=== PATIENT | female | born 1990 | race Caucasian/White ===

== ENCOUNTER → 2020-10-31 06:33 | Outpatient (CLI) | payer OTHER, SELFPAY ==
[2020-10-31 20:06] LABS: SARS-CoV-2 RNA PCR Negative
== END ==
PROVIDERS: PCP Obstetrics & Gynecology; Visit Provider Obstetrics & Gynecology
DX: Z20.822 Contact with and (suspected) exposure to COVID-19 (principal)
CPT/HCPCS: C9803; U0003; U0005

== ENCOUNTER 2021-04-26 11:24 | Outpatient (CLI) | payer OTHER, SELFPAY ==
[2021-04-26 12:00] VITALS: BP 119/82; PULSE 115
[2021-04-26 12:15] VITALS: BP 119/77; PULSE 88
[2021-04-26 12:16] LABS: Basophils Percent Auto 0.3 % (0.2-1.2); Eosinophils Absolute Auto 0.1 K/mm3 (0-0.3); Eosinophils Percent Auto 0.5 % (0-4.4); Hemoglobin 13.1 g/dL (12.0-15.0); Immature Granulocyte Absolute 0.07 K/mm3 (0.00-0.031); Immature Granulocyte Percent A 0.6 % (0-0.5); Lymphocytes Absolute Auto 1.67 K/mm3 (0.9-3.2); Lymphocytes Percent Auto 15.1 % (18.3-44.2); Mean Corpuscular HGB Conc 32.8 g/dl (32-36); Mean Corpuscular Hemoglobin 29.1 pg (26-34); Mean Corpuscular Volume 88.9 fl (80-100); Mean Platelet Volume 10.4 fl (7.4-10.4); Monocytes Absolute Auto 0.6 K/mm3 (0.1-0.6); Monocytes Percent Auto 5.2 % (2.6-8.5); Neutrophils Absolute Auto 8.6 K/mm3 (1.3-6.7); Neutrophils Percent Auto 78.3 % (45.5-73.1); Platelet Count Result 276 k/mm3 (150-375); Red Cell Distribution Width 14.4 % (11.5-14.5)
[2021-04-26 12:24] LABS: Creatinine Urine 49.2 mg/dL; Total Protein Urine Random 9 mg/dL; Ur Ttl Prot Creatinine Ratio 0.18 mg/mg (0-0.20)
[2021-04-26 12:27] LABS: Add Urine Microscopic? YES; Appearance Urine Cloudy (Clear); Bacteria Urine Trace /hpf; Bilirubin Urine Negative (Negative); Blood Urine Negative (Negative); Color Urine Yellow (Yellow); Glucose Urine UA Negative (Negative); Ketones Urine 2+ mg/dL (Negative); Leukocyte Esterase Ur Negative LEU/UL (NEGATIVE); Mucus Urine Rare /lpf; Nitrate Urine Negative (Negative); Protein Urine Negative (Negative); RBC Urine 0-2 /hpf (0-2); Specific Grav Ur 1.014 (1.001-1.035); Squamous Epithelial Cell Urine Many /hpf (Few); Urobilinogen Urine Negative mg/dL (<2.0); WBC Urine 0-3 /hpf (0-3)
[2021-04-26 12:30] VITALS: BP 109/78; PULSE 102
[2021-04-26 12:30] LABS: Alanine Aminotransferase 25 U/L (4-35); Albumin Level 3.8 g/dL (3.5-5.1); Alkaline Phosphatase 91 U/L (38-126); Anion Gap 7 mmol/L (8-16); Aspartate Amino Transferase 21 U/L (14-36); Bilirubin,Total 0.2 mg/dL (0.2-1.3); Blood Urea Nitrogen 11 mg/dL (7-17); Calcium 9.5 mg/dL (8.4-10.2); Carbon Dioxide 21 mmol/L (22-30); Chloride 105 mmol/L (98-107); Estimated Glomerular Filt Rate > 60; Glucose 97 mg/dL (65-110); Potassium 3.8 mmol/L (3.4-5.0); Sodium 133 mmol/L (137-145); Uric Acid 4.6 mg/dL (2.5-7.5)
[2021-04-26 12:45] VITALS: BP 118/68; PULSE 106
== END 2021-04-26 13:00 | disposition home or self-care (01) ==
LOC: ANHOBOP 11:32 → ANHOBPP 11:34
PROVIDERS: Advanced Practice Midwife; PCP Obstetrics & Gynecology; Visit Provider Obstetrics & Gynecology
DX: O13.9 Gestational [pregnancy-induced] hypertension without significant proteinuria, unspecified trimester (principal); Z3A.00 Weeks of gestation of pregnancy not specified
CPT/HCPCS: 36415; 59025; 80053; 81001; 82570; 84156; 84550; 85025; 87086; 99199

== ENCOUNTER 2021-05-11 15:24 | Outpatient (RCR) | payer OTHER, SELFPAY ==
[2021-05-11 15:54] VITALS: BP 115/82; PULSE 116
== END 2021-06-28 09:40 | disposition home or self-care (01) ==
LOC: ANHOBOP 15:24
PROVIDERS: Visit Provider Obstetrics & Gynecology
DX: O24.419 Gestational diabetes mellitus in pregnancy, unspecified control (principal); Z3A.37 37 weeks gestation of pregnancy
CPT/HCPCS: 59025

== ENCOUNTER 2021-05-19 08:06 | Inpatient (IN) | payer OTHER, SELFPAY ==
[2021-05-19] VITALS (69 sets, daily range): BP systolic 80–143; BP diastolic 54–101; PULSE 55–202; RESP 15–18; TEMP 36.3–36.5; O2SAT 77–100; BMI 36.9
[2021-05-19] MEDS: LACTATED RINGERS 1,000 ML 125 ML IV CONT ×2 (08:57→09:28)
[2021-05-19 08:59] LABS: Basophils Percent Auto 0.2 % (0.2-1.2); Eosinophils Absolute Auto 0.1 K/mm3 (0-0.3); Hematocrit 44.4 % (37.0-47.0); Hemoglobin 14.9 g/dL (12.0-15.0); Immature Granulocyte Absolute 0.06 K/mm3 (0.00-0.031); Immature Granulocyte Percent A 0.5 % (0-0.5); Lymphocytes Absolute Auto 1.95 K/mm3 (0.9-3.2); Lymphocytes Percent Auto 16.2 % (18.3-44.2); Mean Corpuscular HGB Conc 33.6 g/dl (32-36); Mean Corpuscular Hemoglobin 29.4 pg (26-34); Mean Corpuscular Volume 87.7 fl (80-100); Mean Platelet Volume 10.5 fl (7.4-10.4); Monocytes Absolute Auto 0.8 K/mm3 (0.1-0.6); Monocytes Percent Auto 6.4 % (2.6-8.5); Neutrophils Absolute Auto 9.1 K/mm3 (1.3-6.7); Neutrophils Percent Auto 75.7 % (45.5-73.1); Platelet Count Result 262 k/mm3 (150-375); Red Blood Count 5.06 M/mm3 (4.2-5.4); Red Cell Distribution Width 14.8 % (11.5-14.5)
[2021-05-19 09:01] LABS: Glucose Point of Care 89 mg/dl (65-105)
[2021-05-19 09:14] LABS: Amphetamine Screen Urine Negative (Negative); Barbiturate Screen Urine Negative (Negative); Benzodiazepines Screen Urine Negative (Negative); Cannabinoid Screen Urine Positive (Negative); Cocaine Screen Urine Negative (Negative); Methadone Screen Urine Negative (Negative); Opiate Screen Urine Negative (Negative); Phencyclidine Screen Urine Negative (Negative)
--- NOTE | 2021-05-19 09:18 | LDADM ---
This patient, Tejal Pérez, was admitted to Labor/Delivery/Recovery 120 on 05/19/21 at 08:06. Plans for scheduled section, pain management and were discussed with patient. Patient/family oriented to hospital policies and general routines including ID bracelet, bed and alarms, visiting hours, pain management, procedures, bathroom and other care routines, personal items, smoking policy, room service/diet and guest tray routines, security routines, and visiting hours. Patient/Family are encouraged to report perceived risks to care and to ask questions if they do not understand what they are told or what they should do. See OBIX for further documentation.
--- NOTE | 2021-05-19 09:28 | WPDANESEPPF ---
Anes - Initial Pre Proc Eval Procedure: Operation Date: 05/21/21 07:30 Proposed Procedures p Section with Left Laparoscopic Salpingo Oophorectomy - Radha Parikh MD Date/Time: 05/19/21 09:28 Surgeon: Radha Parikh MD Pre Op Diagnosis: Contractions Patient Data Age: 31 Gender: F Height: 1.5 m Weight: 83 kg Allergies Allergy/AdvReac Type Severity Reaction Status Date / Time hydromorphone [From Dilaudid] Allergy Rash Verified 04/28/21 13:53 Home Medications Medication Instructions Recorded Confirmed Type PNV cmb#95-ferrous fumarate-FA 1 tablet PO DAILY 04/28/21 05/11/21 History [] Laboratory Tests 05/19/21 05/19/21 05/19/21 08:47 08:47 08:47 WBC 12.0 K/mm3 H K/mm3 (4.5-10.0) RBC 5.06 M/mm3 M/mm3 (4.2-5.4) Hgb 14.9 g/dL g/dL (12.0-15.0) Hct 44.4 % % (37.0-47.0) MCV 87.7 fl fl (80-100) MCH 29.4 pg pg (26-34) MCHC 33.6 g/dl g/dl (32-36) RDW 14.8 % H % (11.5-14.5) Plt Count 262 k/mm3 k/mm3 (150-375) MPV 10.5 fl H fl (7.4-10.4) Immature Gran % (Auto) 0.5 % % (0-0.5) Neut % (Auto) 75.7 % H % (45.5-73.1) Lymph % (Auto) 16.2 % L % (18.3-44.2) [place] % (Auto) 6.4 % % (2.6-8.5) Eos % (Auto) 1.0 % % (0-4.4) Baso % (Auto) 0.2 % % (0.2-1.2) Lymph # (Auto) 1.95 K/mm3 K/mm3 (0.9-3.2) [place] # (Auto) 0.8 K/mm3 H K/mm3 (0.1-0.6) Eos # (Auto) 0.1 K/mm3 K/mm3 (0-0.3) Baso # (Auto) 0.0 K/mm3 K/mm3 (0.0-0.1) Abs Immat Gran (auto) 0.06 K/mm3 H K/mm3 (0.00-0.031) Absolute Neuts (auto) 9.1 K/mm3 H K/mm3 (1.3-6.7) Absolute Nucleated RBC 0.0 K/mm3 K/mm3 (0.0-0.012) Nucleated RBC % 0.0 % % (0.0-0.2) POC Capillary Glucose Urine Opiates Screen Negative (Negative) Urine Methadone Screen Negative (Negative) Ur Barbiturates Screen Negative (Negative) Ur Phencyclidine Scrn Negative (Negative) Ur Amphetamine Screen Negative (Negative) U Benzodiazepines Scrn Negative (Negative) Urine Cocaine Screen Negative (Negative) U Cannabinoids Screen Positive A (Negative) RPR Pending 05/19/21 08:59 WBC RBC Hgb Hct MCV MCH MCHC RDW Plt Count MPV Immature Gran % (Auto) Neut % (Auto) Lymph % (Auto) [place] % (Auto) Eos % (Auto) Baso % (Auto) Lymph # (Auto) [place] # (Auto) Eos # (Auto) Baso # (Auto) Abs Immat Gran (auto) Absolute Neuts (auto) Absolute Nucleated RBC Nucleated RBC % POC Capillary Glucose 89 mg/dl mg/dl (65-105) Urine Opiates Screen Urine Methadone Screen Ur Barbiturates Screen Ur Phencyclidine Scrn Ur Amphetamine Screen U Benzodiazepines Scrn Urine Cocaine Screen U Cannabinoids Screen RPR Patient hx anesthesia problems: none Family hx anesthesia problems: none Results Review: All pre-operative results and documents have been reviewed as part of the pre-operative evaluation. [facility] Family History Family History (Updated 04/28/21 @ 13:30 by Kalie Zheng RN) Mother Breast cancer Social History Social History Smoking status: Former smoker Substance use: never Spiritual care concerns: No Anes - Eval Final PreProcedure Day of Procedure 05/19/21 09:28 Patient weight: obese Heart: regular rate and rhythm Lungs: clear to auscultation and normal air movement Airway: Mallampati scale class II Neurological: alert and oriented Last oral intake: >/= 8 hours ASA classification: II Emergent: no Anesthetic plan: proceed Anesthesia type and monitoring: region
--- NOTE | 2021-05-19 09:45 | PM.IMHP ---
H&P: HPI History of Present Illness Date/Time: 05/19/21 09:45 Chief Complaint: labor Narrative: Tejal is a 31yo G1 at 39 weeks who presented in labor this morning. Was scheduled for primary CS on Friday with LSO for left ovarian dermoid. Baby had been breech, but when flipped to vertex she decided to proceed with primary CS because of her short stature, family history of needing CS, and of having large left ovarian dermoid that also needs surgical removal. otherwise complicated by GDMA1. Review of Systems Review of Systems: All systems reviewed & are unremarkable except as noted in HPI and below PMFSH Family History Family History (Updated 04/28/21 @ 13:30 by Kalie Zheng RN) Mother Breast cancer Social History Social History Smoking status: Former smoker Substance use: never Spiritual care concerns: No Meds Home Medications and Allergies Home Medications Medication Instructions Recorded Confirmed Type PNV cmb#95-ferrous fumarate-FA 1 tablet PO DAILY 04/28/21 05/11/21 History [] Allergies Allergy/AdvReac Type Severity Reaction Status Date / Time hydromorphone [From Dilaudid] Allergy Rash Verified 04/28/21 13:53 Exam Const: General: no acute distress Resp: Effort & Inspection: normal respiratory effort Auscultation: clear to auscultation bilaterally Cardio: Rate: regular rate Rhythm: regular rhythm GI: GI Palp: Yes Soft to palpation Extrem: General: normal to inspection H&P: Results Labs Labs: Short CBC 05/19/21 Range/Units 08:47 WBC 12.0 H (4.5-10.0) K/mm3 Hgb 14.9 (12.0-15.0) g/dL Hct 44.4 (37.0-47.0) % Plt Count 262 (150-375) k/mm3 Assessment and Plan Assessment and plan (1) Ovarian dermoid cyst complicating , antepartum: Code(s): O34.80 - Maternal care for other abnormalities of pelvic organs, unspecified trimester; D27.9 - Benign neoplasm of unspecified ovary Status: Acute (2) Active labor at term: Status: Acute Additional Plan Plan primary CS with LSO for large dermoid Discussed RBA, pt consented, all questions answered. GDMA1- well controlled. will proceed.
--- NOTE | 2021-05-19 09:49 | WPDHPUPDATE1 ---
History and Physical Update Update Date/Time: 05/19/21 09:49 History and Physical has been reviewed, including an updated exam of the patient. There are NO changes in the patient's condition. Risks, benefits, and alternatives have been discussed and questions answered. Patient agrees to proceed with procedure.
--- NOTE | 2021-05-19 11:07 | P.PCNOB_ITS ---
OB - Delivery Note Procedure Delivery date: 05/19/21 Procedure: Procedures Operation Date: 05/19/21 09:45 <No data on this case meets the specified criteria> Primary Low Transverse Section with left salpingooophorectomy events: Gestational Diabetes Route of delivery: Specimen: Yes (placenta and left tube and ovary with dermoid) Quantitative Blood Loss (ml): 440 Anesthesia type: Spinal Disposition: floor Complications: none Narrative: The patient was taken to the OR and had her epidural anesthesia dosed adequately. She was placed in dorsal supine position with left lateral tilt. S CDs and breen had been placed. She was prepped and draped in the normal sterile fashion. A Pfannensteil skin incision was made and carried through to the underlying layer of fascia. The fascia was incised in the midline and then extended laterally using Briseno scissors. The muscles were in the midline and the peritoneum was entered bluntly. The peritoneal incision was extended inferiorly and superiorly with care to avoid the bladder. The bladder blade was then inserted, the vesicouterine peritoneum was grasped, incised with Metzenbaum scissors, and a bladder flap created. The bladder blade was reinserted. A low transverse uterine incision was made with a scalpel and extended bluntly. AROM was performed and fluid was noted to have thick meconium. The head was delivered, followed by the remainder of the baby. The baby's oropharynx was suctioned. The cord was clamped and cut and the infant was handed off. Cord blood was obtained and the placenta was then removed manually. The uterus was exteriorized. A moist lap sponge was used to curette the endometrium. The uterine incision was then closed with one layer of 0-Vicryl in a running, locking fashion. A second imbricating layer was done and good hemostasis was noted. Attention was turned to the left dermoid, about 8cm in size. No clearly normal ovarian tissue was able to be identified. Using the Ligasure device, the tube and ovary were removed by sequentially cauterizing and cutting the infundibulopelvic ligament, broad ligament, and the cornua. Great hemostasis was noted. The posterior cul de sac was irrigated with normal saline and cleared of all clot and debris. The uterus was returned to the abdomen. Both lateral gutters were then irrigated. The rectus muscles were inspected and foun d to be hemostatic. The fascia was reapproximated using 0-Vicryl in running fashion. The subcutaneous tissue was irrigated with normal saline and made hemostatic with Bovie electrocautery. The subcutaneous tissue was reapproximated with a layer of running 2-0 plain gut. The skin was then closed with 4-0 vicryl. Steri strips and a bandage were applied. The uterus was evacuated. The patient tolerated the procedure very well. All counts were correct. She was taken to the recovery room in good condition. [place] Baby Date of : 05/19/21 Time of : 10:27 Weeks of gestation at delivery: 39 Infant gender: Female Weight (pounds): 6 Weight (ounces): 5 presentation: vertex Placenta delivery description: Manual Removal cord vessel description: 3 Vessels and Nuchal Cord score one minute: 8 score five minutes: 8
[2021-05-19] MEDS: OXYTOCIN 30 UNITS/NS 500 ML 30 UNITS/500 ML BAG 125 UNITS IV CONT (13:54)
--- NOTE | 2021-05-19 14:18 | PC.NURSE ---
0830- called,informed pt came in stating her contractions are more uncomfortable and she thinks she is in labor. SVE is 5-6cm with bulging membrane bag. Contractions are about every 3-5 minutes. Orders received to prep for c/s for around 1000.
[2021-05-19] MEDS: KETOROLAC 30 MG/ML VIAL (*BKC) IV PUSH ×2 (14:28→20:00)
[2021-05-19] MEDS: DEXTROSE 5%/0.45% SOD CHL 1,000 ML 125 ML IV CONT (18:30)
[2021-05-19] MEDS: DOCUSATE SODIUM 100 MG CAPSULE PO (18:30)
[2021-05-19] MEDS: ONDANSETRON INJ 4 MG/2 ML VIAL IV PUSH (19:51)
[2021-05-20] MEDS: HYDROcodone/acetaminophen (*CRX) 10-325 MG TABLET 1 TAB PO ×6 (00:19→21:03)
[2021-05-20 01:09] VITALS: BP 116/73; PULSE 97; RESP 16; TEMP 36.8; O2SAT 100
[2021-05-20] MEDS: KETOROLAC 30 MG/ML VIAL (*BKC) IV PUSH (02:50)
[2021-05-20 04:15] VITALS: BP 105/73; PULSE 74; RESP 16; TEMP 36.3; O2SAT 100
[2021-05-20] MEDS: HYDROcodone/acetaminophen (*CRX) 5-325 MG TABLET 1 TAB PO (04:28)
[2021-05-20 05:11] LABS: Basophils Percent Auto 0.2 % (0.2-1.2); Eosinophils Absolute Auto 0.1 K/mm3 (0-0.3); Eosinophils Percent Auto 0.3 % (0-4.4); Hematocrit 35.7 % (37.0-47.0); Hemoglobin 11.8 g/dL (12.0-15.0); Immature Granulocyte Percent A 0.6 % (0-0.5); Lymphocytes Absolute Auto 1.54 K/mm3 (0.9-3.2); Lymphocytes Percent Auto 8.5 % (18.3-44.2); Mean Corpuscular HGB Conc 33.1 g/dl (32-36); Mean Corpuscular Hemoglobin 29.4 pg (26-34); Mean Corpuscular Volume 88.8 fl (80-100); Mean Platelet Volume 10.8 fl (7.4-10.4); Monocytes Absolute Auto 1.1 K/mm3 (0.1-0.6); Neutrophils Absolute Auto 15.3 K/mm3 (1.3-6.7); Neutrophils Percent Auto 84.4 % (45.5-73.1); Platelet Count Result 219 k/mm3 (150-375); Red Blood Count 4.02 M/mm3 (4.2-5.4); Red Cell Distribution Width 14.6 % (11.5-14.5); White Blood Count 18.1 K/mm3 (4.5-10.0)
--- NOTE | 2021-05-20 07:28 | WPDANLDPN2 ---
Anes-Prog Note L&D Date/Time: 05/20/21 07:28 Comfortable throughout: section Neuraxial method: spinal Epidural/Spinal procedure site: clean & non-tender Neuro status: Neuro function grossly intact. Cardiovascular status: normal Respiratory status: normal Airway patency: baseline Mental status: baseline Post-Op hydration status: normal Vital Signs: Last Vital Signs Temp 36.3 C L 05/20/21 04:15 Pulse 74 05/20/21 04:15 Resp 16 05/20/21 04:15 BP 105/73 05/20/21 04:15 Pulse Ox 100 05/20/21 04:15 Pain score (VAS): 4 I/O: Intake & Output 05/19/21 05/19/21 05/20/21 15:59 23:59 07:59 Intake Total 2100 498 500 Output Total 108 995 7190 Balance 1425 298 -1225 Post-procedural complaints: none Patient feedback: Patient satisfied with anesthetic care.
--- NOTE | 2021-05-20 07:28 | WPDANLDNPN2 ---
Anes-Prog Note L&D-Neuraxial Date/Time: 05/20/21 07:28 Neuraxial medications: intrathecal PF morphine Opiod-related complaints: none Patient feedback: Patient satisfied with post-operative pain management.
--- NOTE | 2021-05-20 07:30 | PC.NURSE ---
PT introductions made and plan of care discussed per post op c section, pain management, breast feeding, daily care activities. Pt and fob both recipients of such instructions and pt received instructions this shift per one to one discussion, mom baby care guide and demonstrations. PT verbalized understanding fo such instructions and no barriers to learning identified at this time. PT verbalized understanding of such care.
[2021-05-20] MEDS: DOCUSATE SODIUM 100 MG CAPSULE PO ×2 (08:48→18:28)
[2021-05-20] MEDS: SIMETHICONE 80 MG TAB.CHEW PO ×5 (08:48→20:48)
[2021-05-20] MEDS: MULTIVIT/MIN/PREN/FOL AC/IRON TABLET 1 TAB PO (08:48)
[2021-05-20] MEDS: IBUPROFEN 600 MG TABLET PO ×3 (08:48→20:48)
[2021-05-20 08:49] VITALS: BP 123/82; PULSE 97; RESP 18; TEMP 36.9; O2SAT 99
[2021-05-20] MEDS: LANOLIN (LANSINOH) 7.5 GM CREAM 1 APPLIC TOPICAL (08:51)
--- NOTE | 2021-05-20 10:20 | P.PNOB_ITS ---
OB - PN: Subj Subjective Date/time seen: 05/20/21 10:20 Patient comments: incisional pain [place] baby status: nursing well [place] feeding status: pumping and storing Narrative: Doing ok, just took pain meds, a little behind pain from overnight. improving. OB - PN: Obj Data Labs CBC & Chem 7: 05/20/21 04:27 Labs: Laboratory Results - last 24 hr 05/20/21 04:27 WBC 18.1 H RBC 4.02 L Hgb 11.8 L D Hct 35.7 L MCV 88.8 MCH 29.4 MCHC 33.1 RDW 14.6 H Plt Count 219 MPV 10.8 H Immature Gran % (Auto) 0.6 H Neut % (Auto) 84.4 H Lymph % (Auto) 8.5 L [place] % (Auto) 6.0 Eos % (Auto) 0.3 Baso % (Auto) 0.2 Lymph # (Auto) 1.54 [place] # (Auto) 1.1 H Eos # (Auto) 0.1 Baso # (Auto) 0.0 Abs Immat Gran (auto) 0.10 H Absolute Neuts (auto) 15.3 H Absolute Nucleated RBC 0.0 Nucleated RBC % 0.0 OB - PN A/P Assessment and Plan (1) delivery delivered: Code(s): O82 - Encounter for delivery without indication Status: Acute Plan day: 1 Plan: routine care Comments: breen out ambulate and void today Time Spent With Patient Time: Total time spent is greater than 50% in coordination of care (as documented) at patient's floor/unit and/or counseling patient: Exam Narrative: NAD abdomen soft, appropriately tender, incision bandaged Extremities nontender with 1+ edema
[2021-05-20 18:30] VITALS: BP 131/91; PULSE 86; RESP 18; TEMP 36.8; O2SAT 98
[2021-05-21] MEDS: SIMETHICONE 80 MG TAB.CHEW PO ×6 (00:13→22:01)
[2021-05-21] MEDS: HYDROcodone/acetaminophen (*CRX) 5-325 MG TABLET 1 TAB PO ×3 (00:13→22:01)
[2021-05-21] MEDS: HYDROcodone/acetaminophen (*CRX) 10-325 MG TABLET 1 TAB PO ×5 (03:33→15:52)
[2021-05-21] MEDS: IBUPROFEN 600 MG TABLET PO ×3 (06:35→18:39)
[2021-05-21 07:55] VITALS: BP 145/75; PULSE 80; RESP 18; TEMP 36.6; O2SAT 100
--- NOTE | 2021-05-21 08:08 | PM.OBPNVD ---
OB - PN: Subj Subjective Date/time seen: 05/21/21 08:08 Patient comments: incisional pain and flatus present [place] baby status: nursing well feeding status: exclusively breast feeding Narrative: Eating, ambulating, voiding. Wants to really focus on before going home. OB - PN: Obj Data Labs CBC & Chem 7: 05/20/21 04:27 OB - PN A/P Plan day: 2 Plan: routine care Comments: home POD 3 or 4. Time Spent With Patient Time: Total time spent is greater than 50% in coordination of care (as documented) at patient's floor/unit and/or counseling patient: Exam Narrative: NAD abdomen soft, appropriately tender, incision CDI Extremities nontender with 1+ edema
[2021-05-21] MEDS: DOCUSATE SODIUM 100 MG CAPSULE PO ×2 (08:23→15:52)
[2021-05-21] MEDS: MULTIVIT/MIN/PREN/FOL AC/IRON TABLET 1 TAB PO (08:23)
--- NOTE | 2021-05-21 10:10 | PC.NURSE ---
Mother called out for assist with feeding, reporting has been sleepy and difficult to keep awake and nursing effectively, mother gave a supplement during the night. Infant is at 9% weight loss. . is able to freely thrust tongue past gum ridge and flange both lips. Skin is intact on both nipples, slight redness and bruising noted. Reviewed infant feeding cues, frequencies, duration of feedings, feeding elimination flow sheet, and signs of adequate intake. Demonstrated stimulation techniques to wake for feeding. Assisted with infant to breast. Reviewed positioning/alignment in cross cradle, holding breast in ?U? hold and guided asymmetrical latch on. Reviewed rational for each. Infant able to latch correctly within a few attempts. nursed eagerly with steady draws and occasional swallowing noted, some pausing noted. Reviewed signs of a correct latch, effective nursing and suck swallow ratio. Suggested mother stimulate while feeding to increase stimulation for milk supply, for increased intake and to assist with maintaining deep latch. Infant would slip to shallow latch causing tenderness. Demonstrated how to adjust latch more deeply while feeding as needed. Mother reports she can feel the difference in latch with less tenderness. Nipple care reviewed of lanolin after feedings, warm compresses as needed. Instructed mother to call out for RN assistance if she is unable to latch for feeding or she has discomfort with nursing. Instructed feeding should be initiated three hours from start of last feeding or if feeding cues are noted before. Mother voiced understanding of information shared.
--- NOTE | 2021-05-21 13:00 | PC.NURSE ---
Mother called out for assist with feeding, reporting unable to wake for feeding. Demonstrated stimulation techniques to wake for feeding, several minutes to wake . Assisted with infant to breast. Reviewed positioning/alignment in cross cradle, holding breast in ?U? hold and guided asymmetrical latch on. Reviewed rational for each. able to latch correctly within a few attempts. nursed sleepily with a short burst of steady draws and occasional swallowing noted, wtih long pausing noted. asleep several times during feeding. Reviewed signs of a correct latch, effective nursing and suck swallow ratio. Suggested mother stimulate while feeding to increase stimulation for milk supply, for increased intake and to assist with maintaining deep latch. Infant would slip to shallow latch causing tenderness. Demonstrated how to adjust latch more deeply while feeding as needed. Mother reports she can feel the difference in latch with less tenderness. Nipple care reviewed of lanolin after feedings, warm compresses as needed. Discussed the difference of effective vs ineffective feeding. Reviewed infant is latching with good burst of suckling, she is not feeding consistently with adequate milk transfer at this time and continues to need supplement after . Feeding options discussed, Feeding Plan is for mother to put infant to breast each feeding for up to 15 minutes, then pace feed supplement 20 mls and pump for 10-15 minutes. Parents are comfortable with supplementation and pumping. If infant begins to nurse effectively with long draws and frequent swallowing noted, infant may decrease supplementation and discontinue pumping. Suggested mother have LC cinder dump crane operator observe feeding before discontinuing supplementation. Discussed increasing supplementation as requires to satisfactions. Reviewed paced feeding and suggested to stop when infant is satisfied, as long as is having required output. With increased supplementation may not want to feed for 4 hours. Mother will continue to pump on infant feeding schedule and will increase session to 20 minutes if pumping every 4 hours. Instructed mother to call out for RN assistance if she is unable to latch infant for feeding or she has discomfort with nursing. Instructed feeding should be initiated three hours from start of last feeding or if feeding cues are noted before. Mother voiced understanding of information shared.
[2021-05-21 13:25] LABS: Rapid Plasma Reagin Non-Reactive (NonReactive)
--- NOTE | 2021-05-21 14:30 | PC.NURSE ---
Consult with pt., mother wishes to pump if supplementing. Breast pump provided due to mother's wishes. Instructions given on breast pump care and usage, pumping schedule, nipple care, and collection and storage of breast milk. Encouraged [id number], breast massage and manual expression to stimulate supply. Assessed patient for correct flange size, placement and draw. Patient verbalizes and demonstrates understanding of instructions. Discussed colostrum vs milk supply and mother may not see more than a few drops the first few days, milk should transition in by day 3 and she may see more volume pumped per session.
--- NOTE | 2021-05-21 15:08 | PCCCNOTE ---
Care Coordination met with pt. this morning to discuss discharge planning. Pt.'s current D/C plan is to return home with baby. Pt. lives alone but states she has local family support to assist once home with baby. Pt. confirms that she has everything needed to safely bring baby home. Pt. will continue to breast feed. She is current with [facility] and confirms baby has an appointment with a steel placer. Both pt. and baby had a positive urine drug screen. Pt. states she used marijuana at the end of her to assist with the symptoms she was experiencing. Pt. states understanding that an online report will be sent to [facility] for drug use. She has no questions or concerns. Online intake ID number, [id number]. CC provided pt. with a basket. No further need for CC services at this time.
[2021-05-21 19:40] VITALS: BP 134/85; PULSE 75; RESP 16; TEMP 37.1; O2SAT 100
[2021-05-22] MEDS: IBUPROFEN 600 MG TABLET PO ×4 (01:00→23:04)
[2021-05-22] MEDS: HYDROcodone/acetaminophen (*CRX) 5-325 MG TABLET 1 TAB PO ×7 (01:00→23:04)
--- NOTE | 2021-05-22 07:43 | PM.OBPNVD ---
OB - PN: Subj Subjective Date/time seen: 05/22/21 07:43 Patient comments: incisional pain [place] baby status: doing well feeding status: exclusively breast feeding Narrative: Milk in. baby falls asleep nursing a lot. wants to stay one more day, mostly due to support. OB - PN: Obj Data Labs CBC & Chem 7: 05/20/21 04:27 Labs: Laboratory Results - last 24 hr 05/19/21 08:47 RPR Non-reactive OB - PN A/P Plan day: 3 Plan: routine care Comments: today DC home tomorrow. Time Spent With Patient Time: Total time spent is greater than 50% in coordination of care (as documented) at patient's floor/unit and/or counseling patient: Exam Narrative: NAD abdomen soft, appropriately tender, incision CDI Extremities nontender with 1+ edema
[2021-05-22] MEDS: MULTIVIT/MIN/PREN/FOL AC/IRON TABLET 1 TAB PO (08:35)
[2021-05-22] MEDS: DOCUSATE SODIUM 100 MG CAPSULE PO ×2 (08:35→15:57)
[2021-05-22 08:50] VITALS: BP 118/83; PULSE 69; RESP 16; TEMP 36.4; O2SAT 99
--- NOTE | 2021-05-22 11:50 | PC.NURSE ---
Mother called out for assist with feeding. Mother states has been sleepy at some feedings during the night and has supplemented and pumped. Mother gave 25mls EBM after a feeding this morning. Reviewed infant feeding cues, frequencies, duration of feedings, feeding elimination flow sheet, and signs of adequate intake. Demonstrated stimulation techniques to wake infant for feeding. Assisted with to breast. Reviewed positioning/alignment in football cradle, holding breast in ?C? hold and guided asymmetrical latch on. Reviewed rational for each. Infant able to latch correctly within a few attempts. Infant nursed eagerly with steady draws and frequent swallowing noted, some pausing noted. Reviewed signs of a correct latch, effective nursing and suck swallow ratio. Suggested mother stimulate while feeding to increase stimulation for milk supply, for increased intake and to assist with maintaining deep latch. would slip to shallow latch causing tenderness. Demonstrated how to adjust latch more deeply while feeding as needed. Mother reports she can feel the difference in latch with no tenderness. Nipple care reviewed of lanolin after feedings, warm compresses as needed. Mother is unsure if she should supplement after feeding. Advised to put infant to both breasts, waking between if needed. Reviewed audible swallowing noted. Suggested if infant is satisfied to not supplement. Discussed pumping after feeding to have EBM available if infant does not have a good feeding. Instructed mother to call out for RN assistance if she is unable to latch infant for feeding or she has discomfort with nursing. Instructed feeding should be initiated three hours from start of last feeding or if feeding cues are noted before. Mother voiced understanding of information shared.
[2021-05-22] MEDS: SIMETHICONE 80 MG TAB.CHEW PO ×3 (12:19→23:04)
[2021-05-22 19:10] VITALS: BP 135/86; PULSE 73; RESP 16; TEMP 36.9; O2SAT 100
[2021-05-23] MEDS: SIMETHICONE 80 MG TAB.CHEW PO ×3 (03:14→10:54)
[2021-05-23] MEDS: HYDROcodone/acetaminophen (*CRX) 5-325 MG TABLET 1 TAB PO ×3 (03:14→10:53)
[2021-05-23] MEDS: IBUPROFEN 600 MG TABLET PO (07:17)
[2021-05-23] MEDS: DOCUSATE SODIUM 100 MG CAPSULE PO (07:17)
[2021-05-23] MEDS: MULTIVIT/MIN/PREN/FOL AC/IRON TABLET 1 TAB PO (07:17)
[2021-05-23 07:45] VITALS: BP 137/81; PULSE 70; RESP 18; TEMP 36.7; O2SAT 100
--- NOTE | 2021-05-23 08:47 | PM.OBPNVD ---
OB - PN: Subj Subjective Date/time seen: 05/23/21 08:47 Patient comments: no complaints and pain well controlled baby status: nursing well [place] feeding status: exclusively breast feeding Narrative: Doing so much better than yesterday! Ready for home. OB - PN: Obj Data Labs CBC & Chem 7: 05/20/21 04:27 OB - PN A/P Assessment and Plan (1) delivery delivered: Code(s): O82 - Encounter for delivery without indication Status: Acute Plan Plan: discharge home Comments: FU 1 week Time Spent With Patient Time: Total time spent is greater than 50% in coordination of care (as documented) at patient's floor/unit and/or counseling patient: Exam Narrative: NAD abdomen soft, appropriately tender, incision CDI Extremities nontender with 1+ edema
--- NOTE | 2021-05-23 08:52 | P.DS_ITS ---
DS: Admitting Diagnosis Discharge Date 05/23/21 Admitting Diagnosis term IUP, ovarian dermoid, labor DS: Discharge Diagnosis Discharge Diagnosis (1) delivery delivered: Code(s): O82 - Encounter for delivery without indication Status: Acute DS: Summary Hospital Course Hospital Course: Pt had an uncomplicated delivery with LSO (planned- dermoid) and recovery. Status at Discharge Functional status at discharge: independent ambulation Time Spent with Patient Time attestation: Total time spent providing and/or coordinating discharge services: DS: Data Data Completed and Pending Pending studies at discharge: Pending at discharge 05/19/21 12:02 Surgical [PTH] Routine Discharge Plan Discharge Attending physician on discharge: Radha Parikh Discharging Clinician: Radha Parikh Anticipated Discharge Date/Time: 05/23/21 08:48 Patient Disposition: Home, Self-Care Activity: may shower, no straining, no driving and pelvic rest Diet: regular Patient Instructions: Antibiotic Form Stand Alone Forms: General Discharge Information Follow-up/Referrals: Radha Parikh MD [Physician] - 1 Week Discharge Medications: New hydrocodone-acetaminophen 5-325 mg Tablet 1 tablet PO Q4-5H PRN (Reason: Moderate Pain (4-6)) Qty: 30 RF: 0 docusate sodium 100 mg Capsule 100 mg PO BID Qty: 60 RF: 0 ibuprofen 600 mg Tablet 600 mg PO Q6H PRN (Reason: Cramping) Qty: 60 RF: 0 Continued PNV cmb#95-ferrous fumarate-FA [] 28 mg iron- 800 mcg Tablet 1 tablet PO DAILY RF: 0 Date of admission: 05/19/21 08:06 Primary Care Provider: PHYSICIAN,DEPARTMENT STORE DOOR GREETER Admitting Provider: Radha Parikh Attending physician on admission: Radha Parikh Condition: Stable
--- NOTE | 2021-05-23 10:09 | PC.NURSE ---
Patient viewed the discharge video Mother & Baby Care, The First Two Weeks . Patient was given the opportunity and encouraged to ask questions. Patient verbalized understanding of information shared and has been given the mother/baby guide for home reference.
[2021-05-24 08:39] VITALS: BP 149/87; PULSE 64; RESP 20; TEMP 37; O2SAT 100
== END 2021-05-23 11:30 | disposition home or self-care (01) | DRG 540 ==
LOC: ANHLDR 08:41 → ANHOB2 14:07
PROVIDERS: Admitting Provider Obstetrics & Gynecology; Visit Provider Obstetrics & Gynecology
PROC: (CPT 59514; principal; 2021-05-21 07:30)
DX: O99.892 Other specified diseases and conditions complicating childbirth (principal); Z37.0 Single live birth; Z3A.38 38 weeks gestation of pregnancy; D27.1 Benign neoplasm of left ovary; O24.429 Gestational diabetes mellitus in childbirth, unspecified control; O77.0 Labor and delivery complicated by meconium in amniotic fluid
CPT/HCPCS: 36415; 80307; 82948; 85025; 86592; 86850; 86900; 86901; 88305; A9270; J0131; J1885; J2175; J2274; J2405; J2590; J2795; J3010; J7120

== ENCOUNTER 2024-10-01 09:02 | Observation (INO) | payer OTHER, SELFPAY ==
[2024-10-01] MEDS: LACTATED RINGERS 1,000 ML 999 ML IV CONT (11:00)
[2024-10-01] MEDS: TERBUTALINE SULFATE 1 MG/ML VIAL 0.25 MG SUB-Q (11:30)
--- OUTSIDE RECORDS SUMMARY | 2024-10-01 12:31 | XMS_ITS | Continuity of Care Document ---
Author Organization [facility] Address [address] [place] [address] Phone Care Team Providers Care Employee Wellness/Fitness Coordinator Name Role Phone Anders Mendez MD Unavailable Unavailable Advance Directives Directive Yes / No Effective Date File Name No Information Encounters Encounter Description Practice Location Reason(s) For Visit Diagnoses Date Provider Providers Copied on Encounter [facility], [address] [place], [place], [id number], [place] tel:[phone] [facility] Professional No Information [address] Vanessa Mcnamara. [address] [place], [id number], [place]. tel:[phone] Family History Family Member Type Diagnosis Age At Onset No Information Payers Payer name Insurance type Covered democrat ID Authoriza tion(s) No Information Social History Type Description Quantity Date Captured Comments Sex Female Smoking Status No Information Chief Complaint And Reason For Visit No Information Reason For Referral Reason For Referral No Information History Of Present Illness Encounter Date Complaint History Of Prese nt Illness No Information Functional Status Date Functional Assessmen t No Information Instructions Date Instruction Additional Infor mation No Information Assessments Type Assessment Date No Information Patient Care Teams Name Effective Dates (start - stop) Status Members No Information
--- OUTSIDE RECORDS SUMMARY | 2024-10-01 12:31 | XMS_ITS | Referral Summary ---
Author Organization [facility] Address [address] [place] [address] Care Team Providers Care Supervisor Vacuum Metalizing Name Role Phone Laurel Plummer MD Primary Care Provide r Allergies Active Allergy Reactions Criticality Noted Date Comments Celecoxib Rash Medium 12/05/2010 Hydromorphone Other (See comments) Low 06/06/2014 Reaction: Local reaction to IM injection, Medications meloxicam (MOBIC) 7.5 mg tablet take 1 tablet by oral route 1-2 times per day with food 30 1 10/08/19 17 Active Additional Information Patient not taking.Reported on 04/30/2024 acetaminophen (TYLENOL) 500 mg tablet Take 1-2 tablets (500-1,000 mg total) by mouth every 6 (six) hours as needed for pain Collaborating physician Chino Salter MD 30 tablet 1 01/20/20 21 Active Additional Information Patient not taking.Reported on 04/30/2024 Anyi Ng 1.5/30, 28, 1.5 mg-30 mcg (21)/75 mg (7) per tablet 04/22/20 22 Active venlafaxine XR (EFFEXOR-XR) 37.5 mg 24 hr capsule 04/22/20 22 Active albuterol HFA (PROVENTIL HFA,VENTOLIN HFA,PROAIR HFA) 90 mcg/actuation inhalerIndicatio ns:Exercise-Radha caroline Bronchospasm Prevention Inhale 2 puffs every 6 (six) hours as needed for wheezing 1 each 11 06/23/19 24 Active Active Problems Problem Noted Date Diagnosed Date Acute pain of left knee 06/24/2023 Assessment & Plan (06/24/2023 8:50 AM CHORE WORKER): Acute problem- this is a new problem Ordered x-ray Alternate ice and heat therapy at 20 minute intervals Rest OTC knee brace or vance wrap for compression and stability of knee joint if walking becomes difficult or if knee feels weak OTC Tylenol and Ibuprofen for discomfort-use as directed Continue to monitor Plan to consult ortho versus PT pending images Class 1 obesity with serious comorbidity and body mass index (BMI) of 32.0 to 32.9 in adult 06/24/2023 Assessment & Plan (06/24/2023 8:55 AM CHORE WORKER): Chronic problem- not at /near goal BMI <30 Encouraged to follow heart healthy diet, low carb Encouraged to increase activity to at least 150 min/week Continue to monitor BMI Follow-up includes: nutrition counseling, exercise counseling, and education provided. Bronchospasm, exercise-induced 06/24/2023 Assessment & Plan (06/24/2023 9:02 AM CHORE WORKER): This is a chronic problem-stable Continue with albuterol inhaler 90 mcg- 2 puffs every 6 hours prn-refill sent this visit Patient encouraged to use 15 to 30 minutes prior to exercising to help reduce the need to use during exercise Continue to monitor Dermatitis 06/23/2023 Assessment & Plan (06/24/2023 8:48 AM CHORE WORKER): Acute problem- this is a new problem Ordered triamcinolone 0.1%- apply to region bid prn Plan to consult dermatology if no improvement Patient educated on medication and side effects Keep skin clean and dry Avoid scratching area Good hand hygiene Continue to monitor Encounter for wellness examination 04/25/2022 Assessment & Plan (06/24/2023 8:51 AM CHORE WORKER): Recommend flu vaccine every March-patient declines Recommend covid booster Routine well woman exam as directed by ObGyn Mammogram ordered- strong family hx-continue yearly screenings Fasting labs ordered- obtain this week Follow up with pcp in 1 year for annual-sooner prn Medications reviewed and reconciled this visit Assessment & Plan (04/25/2022 3:42 PM CHORE WORKER): Ordered CBC, cmp, lipid, hgb a1c, TSH Flu declines Pap smear:follows with ob. Up to date F/u in 1 year for annual Sprain of anterior talofibular ligament of right ankle 01/19/2021 Sprain of deltoid ligament of right ankle 2020 Ganglion cyst of wrist 11/18/2016 Hypertension 10/30/2013 Overview (09/18/2016): High blood pressure Assessment & Plan (06/24/2023 8:53 AM CHORE WORKER): Chronic problem- stable without medication BP this visit 112/84 Continue to monitor Recommend DASH diet, heart-healthy lifestyle, exercise. Discussed the risks of hypertension. Assessment & Plan (04/25/2022 2:43 PM CHORE WORKER): Bp in the office today BP Readings from Last 1 Encounters: 04/25/22 110/80 Continue with weight loss and diet Recommend DASH diet, heart-healthy lifestyle, exercise. Discussed the risks of hypertension. F/u in 1 year Depression 10/30/2013 Overview (09/18/2016): Depression Assessment & Plan (06/24/2023 8:51 AM CHORE WORKER): Chronic problem-stable Continue venlafaxine 37.5 mg daily Follow up with Hot Pond Operator Continue to monitor Patient reiterated no suicidal thoughts at this time; take medication as directed; contact 911 and go to the ER if becomes suicidal; discussed side effects of medication with patient; encouraged healthy diet and exericise; encouraged patient to see a counselor Assessment & Plan (04/25/2022 2:44 PM CHORE WORKER): Recently started on effexor by ob F/u prn Atopic rhinitis 10/30/2013 Overview (09/18/2016): Allergic rhinitis Thrombosed hemorrhoids 08/02/2013 Overview (09/18/2016): Thrombosed hemorrhoids Immunizations Immunization Administration Dates Next Due DTaP 02/11/1997, 4,1992,08/02,1992 HPV, Bivalent 11/19/2010 HPV, Quadrivalent 05/02/2011 Hep B, Adolescent or Pediatric 02/23/1993,1991,1992 Hib (PRP-OMP) 05/29/1993, 3,1992,04/28 IPV 02/11/1997, 3,1992,04/28 Influenza, Trivalent, IM (MDV) 03/30/2021 Influenza, Unspecified 06/23/2023(Deferr ed: Patient Refused),08/14/2021(Deferred: Patient Refused) MMR 02/11/1997,05/29/1993 Meningococcal Polysaccharide (Menomune) 01/07/2008 Tdap 03/30/2021,09/09/2005 Social History Tobacco Use Types Packs/Day Years Used Date Smoking Tobacco: Former Cigarettes 0.3 9.3 0 06/16/2011 - 10/14/2020 Tobacco Cessation:Counseling Given: Not Answered Comments:Smoking History Packs/day: 0.25 Packs Alcohol Use Standard Drinks/Week Comments Yes 0 (1 standard drink = 0.6 oz pur e alcohol) PHQ-2 Answer Date Recorded PHQ-2 Total Score (If total score is 3 or more points, staff should administer the PHQ-9) 0 06/23/2023 Comments No Sex and Gender Information Value Date Recorded Sex Assigned at Not on file Legal Sex Female 9:41 AM CHORE WORKER Gender Identity Not on file Sexual Orientation Not on file Last Filed Vital Signs Vital Sign Reading Time Taken Comments Blood Pressure 134/78 04/30/2024 5:32 PM CHORE WORKER Pulse 110 04/30/2024 5:32 PM CHORE WORKER Temperature 36.9 C (98.4 F) 04/30/2024 5:32 PM CHORE WORKER Respiratory Rate 18 04/30/2024 5:32 PM CHORE WORKER Oxygen Saturation 98% 04/30/2024 5:32 PM CHORE WORKER Inhaled Oxygen Concentration - - Weight 78.9 kg (174 lb) 04/30/2024 5:32 PM CHORE WORKER Height 149.9 cm (4' 11 ) 04/30/2024 5:32 PM CHORE WORKER Body Mass Index 35.14 04/30/2024 5:32 PM CHORE WORKER Plan of Treatment Not on file Insurance [facility] AG[place]IN PI[place]A [id number] [facility] Care Teams Supervisor Vacuum Metalizing Relationship Specialty Start Date End Date Laurel Plummer MD [address] [place] [address] [address] [place] [id number] PCP - General Family Medicine 04/25/22
--- OUTSIDE RECORDS SUMMARY | 2024-10-01 12:31 | XMS_ITS ---
Author Organization [facility] Address [address] [place] [address] Phone Care Team Providers Care Estimating Engineer Name Role Phone Unavailable Unavailable Unavailable Plan of Treatment Findings Encounter Date Ordered blood typing B+ CONSULTATION with ZULEMA CASTANON MD 03/03/2017 Last Documented On 7 4:28PM ; [facility] Ordered quantitative HCG lev el not needed today since urine HCG negative CONSULTATION with ZULEMA CASTANON MD 03/03/2017 Last Documented On 7 4:28PM ; [facility] Instructions to patient Instructions for patient : B reast Self Exam discussed Last Documented On 7 1:06PM ; [facility] Education and Decision Aids were provided during visit for: Patient counseling : Use of oral contraceptives discussed in detail including rare occurrence of heart attack, stroke, and leg clots. Patient understands that smoking increases the risk of serious side effects with any steroid-based contraceptive method Last Documented On 7 1:22PM ; [facility] STD screening offered and de clined Last Documented On 7 1:06PM ; [facility] Patient counseling : Use of oral contraceptives discussed in detail including rare occurrence of heart attack, stroke, and leg clots. Patient understands that smoking increases the risk of serious side effects with any steroid-based contraceptive method Last Documented On 7 11:22AM ; [facility] Assessments Includes: Assessments for all patient encounters Findings Encounter Date Routine pelvic exam EXAMINATION SUPERVISOR EXAM with ZULEMA CASTANON MD 06/04/2017 Last Documented On 7 1:26PM ; [facility] Complete spontaneous abortio n . She was advised not to conceive for a minimum of 3 months CONSULTATION with ZULEMA CASTANON MD 03/03/2017 Last Documented On 7 4:28PM ; [facility] Dermoid cyst of the ovary CONSULTATION with ZULEMA CASTANON MD 03/03/2017 Last Documented On 7 4:28PM ; [facility] Amenorrhea NEW EXAMINATION SUPERVISOR EXAM with ZULEMA CASTANON MD 02/10/2017 Last Documented On 7 3:41PM ; [facility] with threatened NEW EXAMINATION SUPERVISOR EXAM with ZULEMA CASTANON MD 02/10/2017 Last Documented On 7 3:41PM ; [facility] Instructions Includes: Instructions for all patient encounters Instructions to patient Instructions for patient : B reast Self Exam discussed Last Documented On 7 1:06PM ; [facility] Education and Decision Aids were provided during visit for: Patient counseling : Use of oral contraceptives discussed in detail including rare occurrence of heart attack, stroke, and leg clots. Patient understands that smoking increases the risk of serious side effects with any steroid-based contraceptive method Last Documented On 7 1:22PM ; [facility] STD screening offered and de clined Last Documented On 7 1:06PM ; [facility] Patient counseling : Use of oral contraceptives discussed in detail including rare occurrence of heart attack, stroke, and leg clots. Patient understands that smoking increases the risk of serious side effects with any steroid-based contraceptive method Last Documented On 7 11:22AM ; [facility] Medical Equipment - Implanted Devices Includes: Current and historical Devices No Medical Equipment Recorded Medications Includes: Current and historical Medications Current Medications (continue as prescribed) Sertraline HCl 50MG Oral Tablet 02/10/2017 Provider: Diagnosis: Last Documented On 11:58AM By FEDE WATT ; [facility] Past Medications on file Levonorgest-Eth Estrad 91-Da y 0.1-0.02 & 0.01MG Oral Tablet 06/04/2017 - 06/03/2018 Provider: ZULEMA CASTANON MD Diagnosis: One tablet daily Last Documented On 06/04/2017 1:40PM By ZULEMA CASTANON MD ; [facility] Levonorgest-Eth Estrad 91-Da y 0.1-0.02 & 0.01MG Oral Tablet 05/30/2017 - 06/04/2017 Provider: ZULEMA CASTANON MD Diagnosis: One tablet daily Last Documented On 06/04/2017 1:23PM By ZULEMA CASTANON MD ; [facility] Levonorgest-Eth Estrad 91-Da y 0.1-0.02 & 0.01MG Oral Tablet 03/03/2017 - 05/30/2017 Provider: ZULEMA CASTANON MD Diagnosis: One tablet daily Last Documented On 05/30/2017 9:20AM By ZULEMA CASTANON MD ; [facility] Medications Administered Includes: Administered Medications in patient's chart No Administered Medications Recorded Results Includes: Results from 10/02/2023 through 10/01/2024 No Results Recorded For Specified Dates History of Present Illness History of Present Illness not supported for this document type No History of Present Illness Recorded Social History Description Last Updated In monogamous relationship 06/04/2017 Last Documented On 7 1:26PM ; [facility] Alcohol use: 2 drinks or less per day oc c 06/04/2017 Last Documented On 7 1:26PM ; [facility] Cigarette smoking less than 1/2 pack a d ay 06/04/2017 Last Documented On 7 1:26PM ; [facility] Sexually active 06/04/2017 Last Documented On 7 1:26PM ; [facility] Smoking status : Current everyday smoker 03/03/2017 Last Documented On 7 4:28PM ; [facility] Cigarette smoking: history 02/10/2017 Last Documented On 7 3:41PM ; [facility] Medical History Includes: Medical History in patient's chart Description Last Updated Contraception: OCP 06/04/2017 Last Documented On 7 1:26PM ; [facility] Aborta 1 06/04/2017 Last Documented On 7 1:26PM ; [facility] 1 06/04/2017 Last Documented On 7 1:26PM ; [facility] Last pap smear date 09/14/2015 06/04/2017 Last Documented On 7 1:26PM ; [facility] LMP: 05/29/2017 06/04/2017 Last Documented On 7 1:26PM ; [facility] Para 06/04/2017 Last Documented On 7 1:26PM ; [facility] Result: normal 06/04/2017 Last Documented On 7 1:26PM ; [facility] History of anxiety disorder NOS 02/11/20 Last Documented On 7 3:41PM ; [facility] History of asthma 02/10/2017 Last Documented On 7 3:41PM ; [facility] Family History Includes: Family History in patient's chart Description Last Updated Family history of malignant neoplasm of the ovary maternal cousin and grandmother 02/10/2017 Last Documented On 7 3:41PM ; [facility] No family history of malignant neoplasm of large intestine 02/10/2017 Last Documented On 7 3:41PM ; [facility] diabetes 02/10/2017 Last Documented On 7 3:41PM ; [facility] Family history of malignant female breas t neoplasm mother 02/10/2017 Last Documented On 7 3:41PM ; [facility] Review of Systems Review of Systems not supported for this document type No Review of Systems Recorded Mental Status Description No anxiety Functional Status No Functional Status Recorded Physical Exam Physical Exam not supported for this document type No Physical Exam Recorded Allergies Includes: Active, inactive, and resolved Allergies Substance Type Reaction Onset Date Resolved Date Statu s Dilaudid Allergy 03/03/2017 Active Last Documented On 7 12:58PM ; [facility] Insurance Includes: Active Insurance Policies Plan Name Member ID Group # Subscriber Relationship Effect andreas Dates 1 - [facility] [id number] RAMOS SINGH Parent Clinical Notes Includes: Signed Clinical Notes starting from 07/05/2022 No Clinical Notes Recorded
--- OUTSIDE RECORDS SUMMARY | 2024-10-01 12:31 | XMS_ITS | Clinical Summary ---
Author Organization [facility] Address [address] [address] Phone Care Team Providers Care Accounts Receivable Associate Name Role Phone Unavailable Unavailable Unavailable Reason for Visit and Chief Complaint The Chief Complaint is: since been on BC would spot for one day, or would spot for a few days then stop and start back up Plan of Treatment Contraception: continue Q3 month cycling pill. She will give it another month or two and if irregular bleeding continues, she'll call and we'll switch to monthly cycling pill We reviewed current pap guidelines and she agrees and is aware no pap done today. Pap normal 08/2015 - Last Documented On 06/04/2017 1:26PM ; [facility] Instructions to patient Instructions for patient : B reast Self Exam discussed Last Documented On 7 1:06PM ; [facility] Education and Decision Aids were provided during visit for: Patient counseling : Use of oral contraceptives discussed in detail including rare occurrence of heart attack, stroke, and leg clots. Patient understands that smoking increases the risk of serious side effects with any steroid-based contraceptive method Last Documented On 7 1:22PM ; [facility] STD screening offered and de clined Last Documented On 7 1:06PM ; [facility] Assessments Includes: Assessments from this encounter Findings - Routine pelvic exam - Last Documented On 06/04/2017 1:26PM ; [facility] Instructions Includes: Instructions from this encounter Instructions to patient Instructions for patient : B reast Self Exam discussed Last Documented On 7 1:06PM ; [facility] Education and Decision Aids were provided during visit for: Patient counseling : Use of oral contraceptives discussed in detail including rare occurrence of heart attack, stroke, and leg clots. Patient understands that smoking increases the risk of serious side effects with any steroid-based contraceptive method Last Documented On 7 1:22PM ; [facility] STD screening offered and de clined Last Documented On 7 1:06PM ; [facility] Medical Equipment - Implanted Devices Includes: Current Devices No Medical Equipment Recorded Medications Includes: Medications discussed during this encounter and other current Medications New / Renewed during this visit ZULEMA CASTANON MD on 06/04/2017 Levonorgest-Eth Estrad 91-Da y 0.1-0.02 & 0.01MG Oral Tablet Provider: ZULEMA DAWSON MD day supply: 91 tablet, 3 refills Diagnosis: One tablet daily Pharmacy: [address], [id number] - Last Documented On 06/04/2017 1:40PM By ZULEMA CASTANON MD ; [facility] Current Medications (continue as prescribed) Sertraline HCl 50MG Oral Tablet 02/10/2017 Provider: Diagnosis: Last Documented On 11:58AM By FEDE WATT ; [facility] Medications Administered Includes: Administered Medications from this encounter No Administered Medications Recorded Vital Signs Includes: Vital Signs from this encounter Vital Name 06/04/2017 12:58P Blood Pressure Sitting (mmHg) 112/70 Pulse Rate-Sitting (bpm) 101 Height (in) 59 Weight (lb) 128 Body Mass Index (kg/m2) 25.9 Body Surface Area (m2) 1.5 Last Documented: On 06/04/2017 1:00PM ; [facility] Results Includes: Results discussed during this encounter No Results Recorded For Specified Dates History of Present Illness Includes: History of Present Illness from this encounter MADELYN SINGH is a 27 year old female. - Unusual bleeding spotting off and on ever sicne starting current OCP. She just started second 3 month pack. - No pelvic pain. - No vaginal discharge. 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 [employer] Social History Description Last Updated In monogamous relationship 06/04/2017 Last Documented On 7 1:26PM ; [facility] Alcohol use: 2 drinks or less per day oc c 06/04/2017 Last Documented On 7 1:26PM ; [facility] Cigarette smoking less than 1/2 pack a d ay 06/04/2017 Last Documented On 7 1:26PM ; [facility] Sexually active 06/04/2017 Last Documented On 7 1:26PM ; [facility] Smoking Status Unknown Procedures and Surgical History Includes: Procedures from this encounter Procedures Code Diagnosis Performing Provider Service L ocation Service Date Clinical summary provided to patient Last Documented On 7 1:06PM ; [facility] Medical History Includes: Medical History addressed during this encounter Description Last Updated Contraception: OCP 06/04/2017 Last Documented On 7 1:26PM ; [facility] Aborta 1 06/04/2017 Last Documented On 7 1:26PM ; [facility] 1 06/04/2017 Last Documented On 7 1:26PM ; [facility] Last pap smear date 09/14/2015 06/04/2017 Last Documented On 7 1:26PM ; [facility] LMP: 05/29/2017 06/04/2017 Last Documented On 7 1:26PM ; [facility] Para 06/04/2017 Last Documented On 7 1:26PM ; [facility] Result: normal 06/04/2017 Last Documented On 7 1:26PM ; [facility] Family History Includes: Family History addressed during this encounter Description Last Updated Family history of malignant neoplasm of the ovary maternal cousin and grandmother 02/10/2017 Last Documented On 7 12:53PM ; [facility] No family history of malignant neoplasm of large intestine 02/10/2017 Last Documented On 7 12:53PM ; [facility] diabetes 02/10/2017 Last Documented On 7 12:53PM ; [facility] Family history of malignant female breas t neoplasm mother 02/10/2017 Last Documented On 7 12:53PM ; [facility] Review of Systems Includes: Review of Systems from this encounter Systemic: No recent weight change. Head: No headache. Eyes: No vision problems. Otolaryngeal: No hoarseness. Cardiovascular: No chest pain or discomfort and no palpitations. Pulmonary: No shortness of breath. Gastrointestinal: Normal appetite. No nausea, no vomiting, and no hematochezia. No diarrhea and no constipation. Genitourinary: No nocturia. No urinary loss of control and no dysuria. Musculoskeletal: No arthralgias and no localized joint swelling. Neurological: No tingling and no numbness. Psychological: No anxiety, no depression, and no sleep disturbances. Mental Status Includes: Mental Status from this encounter Description No anxiety Functional Status Includes: Functional Status from this encounter No Functional Status Recorded Physical Exam Includes: Physical Exam from this encounter Allergies Includes: Active Allergies Substance Type Reaction Onset Date Resolved Date Statu s Dilaudid Allergy 03/03/2017 Active Last Documented On 7 12:58PM ; [facility] Encounters Encounter Provider Location Date Check-In Time Check-Out Time Diagnosis LAT[employer] STUDIES DIRECTOR EXAM ZULEMA CASTANON MD [facility] 06/04/20 17 12:52PM 1:54PM Routine Pelvic Exam Insurance Includes: Active Insurance Policies Plan Name Member ID Group # Subscriber Relationship Effect andreas Dates 1 - [facility] [id number] RAMOS SINGH Parent Clinical Notes Includes: Clinical Notes from this encounter No Clinical Notes Recorded
--- OUTSIDE RECORDS SUMMARY | 2024-10-01 12:31 | XMS_ITS | Clinical Summary ---
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 Plan of Treatment No Plan of Treatment Recorded Assessments Includes: Assessments from this encounter No Assessments Recorded Medical Equipment - Implanted Devices Includes: Current Devices No Medical Equipment Recorded Medications Includes: Medications discussed during this encounter and other current Medications Current Medications (continue as prescribed) Sertraline HCl 50MG Oral Tablet 02/10/2017 Provider: Diagnosis: Last Documented On 7 11:58AM By FEDE WATT ; [facility] Medications Administered Includes: Administered Medications from this encounter No Administered Medications Recorded Results Includes: Results discussed during this encounter No Results Recorded For Specified Dates History of Present Illness Includes: History of Present Illness from this encounter No History of Present Illness Recorded Social History No Social History Recorded - Smoking Status Unknown Medical History Includes: Medical History addressed during this encounter No Medical History Recorded Family History Includes: Family History addressed during this encounter No Family History Recorded Review of Systems Includes: Review of Systems from this encounter No Review of Systems Recorded Mental Status Includes: Mental Status from this encounter No Mental Status Recorded Functional Status Includes: Functional Status from this encounter No Functional Status Recorded Physical Exam Includes: Physical Exam from this encounter No Physical Exam Recorded Allergies Includes: Active Allergies Substance Type Reaction Onset Date Resolved Date Statu s Dilaudid Allergy 03/03/2017 Active Last Documented On 7 12:58PM ; [facility] Insurance Includes: Active Insurance Policies Plan Name Member ID Group # Subscriber Relationship Effect andreas Dates 1 - [facility] [id number] RAMOS SINGH Parent Clinical Notes Includes: Clinical Notes from this encounter No Clinical Notes Recorded
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
--- OUTSIDE RECORDS SUMMARY | 2024-10-01 12:32 | XMS_ITS | Clinical Summary ---
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 Plan of Treatment No Plan of Treatment Recorded Assessments Includes: Assessments from this encounter No Assessments Recorded Medical Equipment - Implanted Devices Includes: Current Devices No Medical Equipment Recorded Medications Includes: Medications discussed during this encounter and other current Medications Current Medications (continue as prescribed) Sertraline HCl 50MG Oral Tablet 02/10/2017 Provider: Diagnosis: Last Documented On 7 11:58AM By FEDE WATT ; [facility] Medications Administered Includes: Administered Medications from [...] Active Last Documented On 7 12:58PM ; [facility] Insurance Includes: Active Insurance Policies Plan Name Member ID Group # Subscriber Relationship Effect andreas Dates 1 - [facility] [id number] RAMOS SINGH Parent Clinical Notes Includes: Clinical Notes from this encounter No Clinical Notes Recorded
--- OUTSIDE RECORDS SUMMARY | 2024-10-01 12:32 | XMS_ITS ---
Care Plan - [facility] Created on: October 01, 2024 LAMIN SINGH : 1990 Sex: Female Author Organization [facility] Address [address] [place] [address] Phone Care Team Providers Care Apprentice Machinist Outside Name Role Phone Unavailable Unavailable Unavailable
--- OUTSIDE RECORDS SUMMARY | 2024-10-01 12:32 | XMS_ITS | Data Portability ---
Author Organization [facility] Eric ALTAMIRANO Address [address] [place] [address] Assessment Encounter Date Assessment Date Assessment LastModified by Organization Details LastModified Time 09/11/2015 09/11/2015 Patient here for annual exam and control refill. Currently happy with control pills. No complaints. [email or web address] Not available 09/11/2015 14:21:32 12/13/2016 12/13/2016 1. pelvic wnl 2. nuswab done 3. will send urine culture 4. meds sent to pharmacy for symptoms to help over holiday weekend 5. counseled on safe sex, condom use, UTI prevention and treatment, and prevention 6. Will follow up in one year, pending results or sooner if needed [email or web address] Not available 12/18/2016 10:25:00 Plan of Treatment Reminders Order Date Submit Date Provider Last Modified By Organization Details Last Modified Time Details Appointments None recorde d. Lab bacteri al vaginos is + vaginit is panel, vaginal 2016 017 [facility], [address], [place], [address], 7 16:08:43 urinaly sis, dipstic k 2016 017 [email or web address] In-Office Order, Internal Use Only DO Not Attach Compendium DO Not Attach Compendium, Do Not Delete/merge, [id number] 7 17:03:44 culture , urine 2016 017 [facility], [address], [address], [place], [address], 7 16:08:43 bacteri al vaginos is + vaginit is panel, vaginal - from cervix 2015 016 [facility], [address], [address], [place], [address], 6 07:19:22 pap, IG + reflex HR HPV (16+18) - from cervix 2015 016 [facility], [address] [facility], [address], [place], [address], 6 16:37:32 pregnan cy test, urine 2015 016 RANJEET In-Office Order, Internal Use Only DO Not Attach Compendium DO Not Attach Compendium, Do Not Delete/merge, [id number] 6 14:21:35 Referral None recorde d. Procedures None recorde d. Surgeries None recorde d. Imaging None recorde d. Medication Orders Macrobi d 100 mg capsule 2016 017 [facility] #[id number], [address], [place], [id number], 7 12:31:33 Pyridiu m 200 mg tablet 2016 017 [id number], [address], [place], [id number], 7 12:31:34 Loestri n Fe 1/20 (28-Day ) 1 mg-20 mcg (21)/75 mg (7) tablet 2015 0[id number], [address], [place], [id number], 6 14:21:34 Patient TargetsNo targets recorded. Patient InstructionsNo instructions recorded. Reason for Referral None Reported. Results Created Date Observation Date Name Description Value Unit Range Abnormal Flag Note LastModifiedBy Organization Detail LastModifiedTime 12/14/19 17 12/13/2016 urina lysis , dipst ick Leukocytes Trace Not Available In-Offi ce Order Internal Use Only DO Not Attach Compendium DO Not Attach Compendium, Do Not Delete/merge, 12/13/2016 11:12:24 12/14/19 17 12/13/2016 urina lysis , dipst ick Nitrite negati ve Not Available In-Office Order Internal Use Only DO Not Attach Compendium DO Not Attach Compendium, Do Not Delete/merge, 12/13/2016 11:12:24 12/14/19 17 12/13/2016 urina lysis , dipst ick Urobilinogen .2 Not Available In-Of fice Order Internal Use Only DO Not Attach Compendium DO Not Attach Compendium, Do Not Delete/merge, 12/13/2016 11:12:24 12/14/19 17 12/13/2016 urina lysis , dipst ick Protein Negati ve Not Available In-Office Order Internal Use Only DO Not Attach Compendium DO Not Attach Compendium, Do Not Delete/merge, 12/13/2016 11:12:24 12/14/1912/13/2016 urina lysis , dipst ick pH 7.5 Not Available In-Office Order Internal Use Only DO Not Attach Compendium DO Not Attach Compendium, Do Not Delete/merge, 12/13/2016 11:12:24 12/14/1912/13/2016 urina lysis , dipst ick Blood Hemoly zed: Trace Not Available In-Office Order Internal Use Only DO Not Attach Compendium DO Not Attach Compendium, Do Not Delete/merge, 12/13/2016 11:12:24 12/14/1912/13/2016 urina lysis , dipst ick Specific [place] 1.020 Not Available In-Off ice Order Internal Use Only DO Not Attach Compendium DO Not Attach Compendium, Do Not Delete/merge, 12/13/2016 11:12:24 12/14/1912/13/2016 urina lysis , dipst ick Ketone Negati ve Not Available In-Office Order Internal Use Only DO Not Attach Compendium DO Not Attach Compendium, Do Not Delete/merge, [id number] 12/13/2016 11:12:24 12/14/19 17 12/13/2016 urina lysis , dipst ick Bilirubin Negati ve Not Available In-Office Order Internal Use Only DO Not Attach Compendium DO Not Attach Compendium, Do Not Delete/merge, [id number] 12/13/2016 11:12:24 12/14/19 17 12/13/2016 urina lysis , dipst ick Glucose Negati ve Not Available In-Office Order Internal Use Only DO Not Attach Compendium DO Not Attach Compendium, Do Not Delete/merge, [id number] 12/13/2016 11:12:24 09/11/19 16 09/11/2015 pregn baron test, urine HCG negati ve Not Available In-Office Order Internal Use Only DO Not Attach Compendium DO Not Attach Compendium, Do Not Delete/merge, [id number] 09/11/2015 14:21:35 09/11/19 16 09/13/2015 bacte rial vagin osis + vagin itis panel , vagin al atopobium vaginae HIGH - 2 score abnormal Not Available [facility] ([facility]) [address] [place], [address], 09/14/2015 07:19:22 09/11/19 16 09/13/2015 bacte rial vagin osis + vagin itis panel , vagin al bvab 2 HIGH - 2 score abnormal Not Available [facility] ([facility]) [address] [place], [address], 09/14/2015 07:19:22 09/11/19 16 09/13/2015 bacte rial vagin osis + vagin itis panel , vagin al megasphaera 1 HIGH - 2 score abnormal CALCU LATE TOTAL SCORE BY JANET Lara THE 3 INDIV IDUAL BACTE RIAL VAGIN OSIS (BV) MARKE R SCORE S TOGET HER. TOTAL SCORE IS INTER PRETE D FOLLO WS: TOTAL SCORE 0-1: INDIC ATES THE ABSEN CE OF BV. TOTAL SCORE 2: INDSAMRA BACKIN ATE FOR BV. ADDIT IONAL CLINI DEUCE DATA SHOUL D BE EVALU ATED TO ESTAB SENIA A DIAGN OSIS. TOTAL SCORE 3-6: INDIC ATES THE PRESE NCE OF BV. THIS TEST WAS DEVEL OPED AND ITS PERFO RMANC E FLAKO CTERI STICS DETER MINED BY [employer]. IT HAS NOT BEEN CLEAR ED OR APPRO TREY BY THE FOOD AND DRUG ADMIN ISTRA TION. THE FDA HAS DETER MINED THAT SUCH CLEAR ANCE OR APPRO MIROSLAVA IS NOT NECES DAVID. Not Available [facility] ([facility]) [address] [place], [address], 09/14/2015 07:19:22 09/11/19 16 09/13/2015 bacte rial vagin osis + vagin itis panel , vagin al lelo albicans, SHONNA NEGATI VE negati ve Not Available [facility] ([facility]) [address] [place], [address], 09/14/2015 07:19:22 09/11/19 16 09/13/2015 bacte rial vagin osis + vagin itis panel , vagin al lelo glabrata, SHONNA NEGATI VE negati ve THIS TEST WAS DEVEL OPED AND ITS PERFO RMANC E FLAKO CTERI STICS DETER MINED BY [employer]. IT HAS NOT BEEN CLEAR ED OR APPRO TREY BY THE FOOD AND DRUG ADMIN ISTRA TION. THE FDA HAS DETER MINED THAT SUCH CLEAR ANCE OR APPRO MIROSLAVA IS NOT NECES DAVID. Not Available [facility] ([facility]) [address] [place], [address], 09/14/2015 07:19:22 09/11/1909/13/2015 bacte rial vagin osis + vagin itis panel , vagin al trich vag by SHONAN NEGATI VE negati ve Not Available [facility] ([facility]) [address] [place], [address], 09/14/2015 07:19:22 09/11/19 16 09/13/2015 bacte rial vagin osis + vagin itis panel , vagin al chlamydia trachomatis, SHONNA NEGATI VE negati ve Not Available [facility] ([facility]) [address], [place], [address], 09/14/2015 07:19:22 09/11/19 16 09/13/2015 bacte rial vagin osis + vagin itis panel , vagin al neisseria gonorrhoeae, SHONNA NEGATI VE negati ve Not Available [facility] ([facility]) [address], [place], [address], 09/14/2015 07:19:22 09/11/19 16 09/13/2015 pap, IG + refle x HR HPV (16+1 8) HPV, high-risk NEGATI VE negati ve THIS HIGH- RISK HPV TEST DETEC TS THIRT EEN HIGH- RISK TYPES (16/1 8/31/ 33/35 /39/4 5/51/ 52/56 /58/5 ) WITHO UT DIFFE RENTI ATION . Not Available [facility] ([facility]) [address] [place], [address], 09/14/2015 16:37:32 09/11/19 16 09/14/2015 pap, IG + refle x HR HPV (16+1 8) diagnosis: COMMEN T NEGAT ERIN FOR INTRA EPITH ELIAL LESIO N AND ROMEO DAVID . THIS SPECI MEN WAS RESCR EENED PART OF OUR QUALI TY CONTR OL PROGR AM. Not Available [facility] ([facility]) [address], [place], [address], 09/14/2015 16:37:32 09/11/19 16 09/14/2015 pap, IG + refle x HR HPV (16+1 8) specimen adequacy: COMMEN T SATIS FACTO RY FOR EVALU ATION . ENDOC ERVIC AL AND/O R SQUAM OUS METAP LASTI C CELLS (ENDO CERVI DEUCE COMPO NENT) ARE PRESE NT. Not Available [facility] ([facility]) [address] [place], [address], 09/14/2015 16:37:32 09/11/19 16 09/14/2015 pap, IG + refle x HR HPV (16+1 8) clinician provided ICD10: LAVELL Rosario Z01.4 19 Not Available [facility] ([facility]) [address] [place], [address], 09/14/2015 16:37:32 09/11/19 16 09/14/2015 pap, IG + refle x HR HPV (16+1 8) performed by: LAVELL MOJICA, CYTOT ECHNO LOGIS T (ASCP ) Not Available [facility] ([facility]) [address] [place], [address], 09/14/2015 16:37:32 09/11/19 16 09/14/2015 pap, IG + refle x HR HPV (16+1 8) QC reviewed by: CINDY WOODRUFF Y CYTOT ECHNO LOGIS T (ASCP ) Not Available [facility] ([facility]) [address] [place], [address], 09/14/2015 16:37:32 09/11/19 16 09/14/2015 pap, IG + refle x HR HPV (16+1 8) . . Not Available [facility] ([facility]) [address] [place], [address], 09/14/2015 16:37:32 09/11/19 16 09/14/2015 pap, IG + refle x HR HPV (16+1 8) note: LAVELL Rosario THE PAP SMEAR IS A SCREE BRINA TEST DESIG KETTY TO AID IN THE DETEC TION OF CHIQUIS LIGNA NT AND MALIG NANT CONDI TIONS OF THE UTERI NE CERVI X. IT IS NOT A DIAGN OSTIC PROCE DURE AND SHOUL D NOT BE USED THE SOLE MEANS OF DETEC TING CERVI DEUCE CANCE R. BOTH FALSE -POSI TIVE AND FALSE -NEGA TIVE REPOR TS DO OCCUR . Not Available [facility] ([facility]) [address] [place], [address], 09/14/2015 16:37:32 09/11/19 16 09/14/2015 pap, IG + refle x HR HPV (16+1 8) test methodology: COMMEN T THIS LIQUI D BASED THINP REP(R ) PAP TEST WAS JUSTO HDEZ WITH THE USE OF AN IMAGE GUIDE D SYSTE M. Not Available [facility] ([facility]) [address], [place], [address], 09/14/2015 16:37:32 12/14/19 17 12/15/2016 bacte rial vagin osis + vagin itis panel , vagin al trich vag by SHONNA NEGATI VE negati ve Not Available [facility] ([facility]) [address] [place], [address], 12/17/2016 16:08:43 12/14/19 17 12/15/2016 bacte rial vagin osis + vagin itis panel , vagin al chlamydia trachomatis, SHONNA NEGATI VE negati ve Not Available [facility] ([facility]) [address] [place], [address], 12/17/2016 16:08:43 12/14/19 17 12/15/2016 bacte rial vagin osis + vagin itis panel , vagin al neisseria gonorrhoeae, SHONNA NEGATI VE negati ve Not Available [facility] ([facility]) [address] [place], [address], 12/17/2016 16:08:43 12/14/19 17 12/17/2016 bacte rial vagin osis + vagin itis panel , vagin al atopobium vaginae MODERA TE - 1 score Not Available [facility] ([facility]) [address] [place], [address], 12/17/2016 16:08:43 12/14/19 17 12/17/2016 bacte rial vagin osis + vagin itis panel , vagin al bvab 2 LOW - 0 score Not Available [facility] ([facility]) [address] [place], [address], 12/17/2016 16:08:43 12/14/19 17 12/17/2016 bacte rial vagin osis + vagin itis panel , vagin al megasphaera 1 LOW - 0 score CALCU LATE TOTAL SCORE BY JANET Lara THE 3 INDIV IDUAL BACTE RIAL VAGIN OSIS (BV) MARKE R SCORE S TOGET HER. TOTAL SCORE IS INTER PRETE D FOLLO WS: TOTAL SCORE 0-1: INDIC ATES THE ABSEN CE OF BV. TOTAL SCORE 2: INDET ERMIN ATE FOR BV. ADDIT IONAL CLINI DEUCE DATA SHOUL D BE EVALU ATED TO ESTAB SENIA A DIAGN OSIS. TOTAL SCORE 3-6: INDIC ATES THE PRESE NCE OF BV. THIS TEST WAS DEVEL OPED AND ITS PERFO RMANC E FLAKO CTERI STICS DETER MINED BY [facility]. IT HAS NOT BEEN CLEAR ED OR APPRO TREY BY THE FOOD AND DRUG ADMIN ISTRA TION. THE FDA HAS DETER MINED THAT SUCH CLEAR ANCE OR APPRO MIROSLAVA IS NOT NECES DAVID. Not Available [facility] ([facility]) [address], [place], [address], 12/17/2016 16:08:43 12/14/19 17 12/17/2016 bacte rial vagin osis + vagin itis panel , vagin al lelo albicans, SHONNA NEGATI VE negati ve Not Available [facility] ([facility]) [address], [place], [address], 12/17/2016 16:08:43 12/14/19 17 12/17/2016 bacte rial vagin osis + vagin itis panel , vagin al lelo glabrata, SHONNA NEGATI VE negati ve THIS TEST WAS DEVEL OPED AND ITS PERFO RMANC E FLAKO CTERI STICS DETER MINED BY [facility]. IT HAS NOT BEEN CLEAR ED OR APPRO TREY BY THE FOOD AND DRUG ADMIN ISTRA TION. THE FDA HAS DETER MINED THAT SUCH CLEAR ANCE OR APPRO MIROSLAVA IS NOT VISH HERNANDEZ. Not Available [facility] ([facility]) [address], [place], [address], 12/17/2016 16:08:43 12/14/19 17 12/15/2016 cultu re, urine urine culture, routine FINAL REPORT Not Available [facility] ([facility]) [address], [place], [address], 12/17/2016 16:08:43 12/14/19 17 12/15/2016 cultu re, urine result 1 NO GROWTH Not Available [facility] ([facility]) [address], [place], [address], 12/17/2016 16:08:43 05/04/20 14 05/03/2014 imagi ng/di agnos tic resul t No observ ation record ed. [email or web address] [address] [place], [address], 05/05/2014 09:04:22 05/16/20 14 04/15/2014 imagi ng/di agnos tic resul t No observ ation record ed. [email or web address] [place] [address] [place], [address], 05/16/2014 17:32:58 Result Notes None recorded. Problems Name Problem SNOMED Code Status Onset Date Resolution Date Notes Provider Name and Address Organization Details Recorded Time Cyst of ovary 83988555 Active JAYNE Sanchez Attn: Josie g,[address] [facility], [place], [address], [facility] 6 14:18:20 Bacterial vaginosis 276434143 Active Carrie mann, [place] - [facility] 6 09:10:19 Problem Notes None recorded. Procedures Surgical History Date Name Laterality Status Provider Name and Address Organization Details Recorded Time 03/28/2014 Date of Last Pap Smear completed Macy Cheney [place] [facility] 05/01/2014 10:42:19 Hernia Repair completed Macy Cheney [place] [facility] 05/01/2014 10:42:19 Imaging Results Imaging Date Name Status LastModified by Organiz ation Details LastModified Time 05/03/2014 imaging/diag nostic result completed [email or web address] [address] [place], [address], 05/05/2014 09:04:22 04/15/2014 imaging/diag nostic result completed [email or web address] [address] [place], [address], 05/16/2014 17:32:58 Procedure Notes None recorded. Medical Equipment None Reported. Allergies No known drug allergies Medications Name Sig Start Date Stop Date Status Note LastModified by Organization Details LastModified Time hydrocodone 5 mg-acetaminoph en 325 mg tablet active Not Available Not Available Not Available phenazopyridin e 200 mg tablet Take 1 tablet 3 times a day by oral route as directed. active Not Available Not Available No t Available sertraline 100 mg tablet active Not Available Not Available No t Available metronidazole 500 mg tablet Take 2 tablets every day by oral route as directed for 7 days. active Not Available Not Available No t Available meloxicam 7.5 mg tablet active Not Available Not Available No t Available Microgestin FE / (28) 1 mg-20 mcg (21)/75 mg (7) tablet 1 DAILY active Not Available Not Available Not Available sertraline 50 mg tablet active Not Available Not Available No t Available naproxen 500 mg tablet active Not Available Not Available No t Available Microgestin /20 (21) 1 mg-20 mcg tablet active Not Available Not Available Not Available nitrofurantoin monohydrate/ma crocrystals 100 mg capsule Take 1 capsule twice a day by oral route as directed for 10 days. active Not Available Not Available No t Available Zenchent (28) 0.4 mg-35 mcg tablet active Not Available Not Available Not Available Lo Loestrin Fe active Not Available No t Available Not Available Vitals Date Recorded Body mass index (BMI) Body weight Body height Systolic blood pressure Diastolic blood pressure Provider Name and Address Organization Details Last Updated DateTime 09/11/2015 25.4 kg/m2 41388.63 862 g 149.86 cm 128 mm[Hg] 72 mm[Hg] Carrie Arzola [facility] 6 14:08:54 Date Recorded Body height Body mass index (BMI) Body weight Systolic blood pressure Diastolic blood pressure Provider Name and Address Organization Details Last Updated DateTime 12/13/2016 149.86 cm 23.8 kg/m2 51400.5 g 104 mm[Hg] 58 mm[Hg] Macy Cheney MA [facility] 7 11:11:47 Social History None recorded. Functional Status None recorded. Mental Status None recorded. Family History Relationship Description Onset Age of this Age Resolved Age Notes LastModified by Organization Details LastModified Time Mother Malignant tumor of breast [email or web address] Not available 14:18:29 Unspecified Relation Osteoporosis [email or web address] Not available 09/11/2015 14:18:29 Unspecified Relation Cerebrovascu lar accident [email or web address] Not available 09/11/2015 14:18:29 Medical History Condition Response Coronary Artery Disease N Blood Diseases N Kidney Cyst N Hyperthyroidism N Blood disorders N MRSA N Blood Transfusion N Emphysema N Depression N COPD N Blood Clots N Pneumonia N Peripheral Arterial Disease N Premature N Edema N TIA N Headaches/Migraines N Anxiety Disorder N Obesity N Polyps N Infertility N Acid Reflux (GERD) N Hematuria N Stroke N Neck Injury N Polio N Hospital Admission other than N Neurologic Disorder N Other Sleep Disorders N Rheumatoid Arthritis N Fibromyalgia N Abdominal Aortic Aneurysm Repair N Kidney Disease N Heart Conditions N Heart Disease/Heart Problems N Hospitalizations N Brain Tumors N Acne N Skin Problems N Eating Disorder N Meningitis N Constipation N Tuberculosis N Cerebral Palsy N Myocardial Infarction N Asthma N Substance Abuse N Peripheral Vascular Disease N Vertigo N Sleep Disorder N Cirrhosis N Pulmonary Embolism N Chicken Pox N Hematologic Disease N Flomax Use Past or Present N Anxiety/Depression N Thyroid Disease N Colon Cancer N Lung Disease N Glaucoma N Developmental or Behavioral Disorders N Bipolar N Pacemaker N Diverticulitis/Diverticulosis N Orthopedic Problems N Anesthesia Complications N Orthotics N Head Injury/Concussion N Congenital Anomalies N Mendes Bite N Chronic Kidney Disease N Endometriosis N Liver Disease N Schizophrenia N Dialysis N Speech Delay N Chronic Obstructive Pulmonary Disease N Parkinson's Disease N Thyroid Problems N GI Problems N Developmental Delay N Anemia N Multiple Sclerosis N Immune System Disorder N Colon Polyps N Heart Attack (NE) N Diabetes N Cardiomyopathy N Blood Transfusions N Heart Problems/Murmur N Eye Trauma N Congestive Heart Failure (CHF) N Valvular Heart Disease N Hyperlipidemia N Double Vision N Abuse/Domestic Violence N Hepatitis B N Lupus N Epilepsy/Seizures N Reflux/GERD N Aneurysm N Heart Disease N Bronchitis N Pre-Eclampsia N Hypertension N Heart Failure N Other N Gout N High Blood Pressure N Atrial Fibrillation N Kidney Stones N Head Trauma/Injury N Congenital Heart Disease N Spine Problems N Gastrointestinal Disease N Lung Mass N Sinusitis N Obstructive Sleep Apnea N Muscle, Joint, or Bone Problems N Autoimmune disease N Vision or Eye Problems N Arthritis N Blood Clot N Cancer N Seasonal allergies N Leg or Foot Ulcers N Raynaud's Disease N Aortic Aneurysm N Arrhythmia N Headaches N Heart Problems N Ambloypia N Ear or Hearing Problems N Hyperparathyroidism N Migraines N Artificial Joints N Kidney or Bladder Problems N NSAID Use N Encephalitis N PTSD N Ulcers N Prostate Hypertrophy N Bleeding Disorder N AIDS/HIV N Urinary Tract Infection N Back Problems N Allergies N Atrial Flutter N GERD/Reflux N Hepatitis N Autism Spectrum Disorder (ASD) N Breast Cancer N Hernia N Hypothyroidism N Breast Problem N Genitourinary Disease N Deep Vein Thrombosis N Varicose Veins N Cystic Fibrosis N Hearing Loss N Developmental Problems N Carotid Disease N Vitamin D Deficiency N ADHD N Bladder or Kidney Problems N High Cholesterol N [place] N Valvular Abnormalities N Psychiatric/Mental Health Condition N Organ Transplant N Foot Deformity N Allergies/Hayfever N Dyslipidemia N Hyponatremia N Diabetic Eye Disease N Osteoporosis/Osteopenia N Back Pain N Proteinuria N Mental Illness N Neurological Problems N Ovarian Cancer N Bedwetting N Seizures/Epilepsy N Kidney Failure N Ocular trauma N Diverticulitis N Dementia N Sleep Apnea N Mental Problems N Warfarin Management N Osteoporosis N Gynecological History Statement/Question Response Abnormal Pap N Date of Last Pap Smear 03/28/2014 Sexual Problems? Y LMP Approximate Obstetrics History GPAL:G 0 P 0 0 0 0 Type Value Living 0 Total 0 Past Encounters Encounter ID Performer Location Encounter Start Date Encounter Closed Date Diagnosis/Indication Diagnosis SNOMED-CT Code Diagnosis ICD10 Code Diagnosis Note [id number] Jose Hassan [facility] ([facility] [address]) [address] [facility] [address] [place] [address] 05/16/2014 17:32:53 05/17/2014 12:26:48 Cyst of ovary 48279600 [id number] SUNI Sanchez [facility] ([facility] [address]) [address] [facility] [place] [address] 09/11/2015 13:59:52 09/11/2015 14:22:44 [facility]nec[facility] 78276488 [facility] [id number] Z30.9 [id number] JAYNE Sanchez ([facility] 122) [address] [facility] [place] [address] 12/13/2016 10:52:10 12/18/2016 11:14:41 Urinary tract infectious disease 54674991 N39.0 Vaginal discharge 410185 006 N89.8 Health Concerns Section Related Observation LastModified by Organization Detai ls LastModified Time None Recorded Concern Status LastModified by Organization Details LastModified Time None Recorded Advance Directives Directive None Recorded Payers Encounter Date Sequence Insurance Name Policy Number Policy Mehta Covered Member ID Mehta Member ID Guarantor Name 05/16/2014 1 [place] [id number] Aristides Vantrease [id number] V[address]ase 09/11/2015 1 [place] [id number] Aristides Vantrease [id number] 12/13/2016 1 [place] [id number] Aristides Vantrease [id number] Vantrease Notes Date Note Type Note Provider Name and Address Organization Details Recorded Time 09/11/2015 text/html Annual GYNReport ed bypatient.History:no gynecologic complaints Menstrual cycle:Normal menses Urinary symptoms:No hematuria; No incontinence Vulva:No genital lesion Vagina:Normal vaginal discharge Breast:No breast pain; No breast lump; No nipple discharge Current Contraception:Satisf ied with current contraception; Monogamous relationship; Oral contraceptives Sexual complaints:No sexual complaints; No pain during intercourse; Normal libido Menopausal Symptoms:No menopausal symptoms; Normal vaginal lubrication Psychological symptoms:No depression; No anxiety; No PMDD Preventive measures:Encourage self breast examination; Encourage regular exercise; Encourage no tobacco use; Followed with yearly pap smears; History of abnormal pap smear/cervical dysplasia JAYNE Sanchez Attn: Accounting[address] [place], [address], [facility] 09/11/2015 14:22:03 12/13/2016 text/html Annual GYNReport ed bypatient.History:no gynecologic complaints Menstrual cycle:Normal menses Urinary symptoms:No hematuria; No incontinence Vulva:No genital lesion Vagina:Normal vaginal discharge Breast:No breast pain; No breast lump; No nipple discharge Current Contraception:Satisf ied with current contraception; Monogamous relationship; Oral contraceptives Sexual complaints:No sexual complaints; No pain during intercourse; Normal libido Menopausal Symptoms:No menopausal symptoms; Normal vaginal lubrication Psychological symptoms:No depression; No anxiety; No PMDD Preventive measures:Encourage self breast examination; Encourage regular exercise; Encourage no tobacco use; Followed with yearly pap smears; History of abnormal pap smear/cervical dysplasia Patient states she went floating over the weekend and felt like she has a uti. Pelvic pain, urgency and frequency with some discharge occasionally. Has not tried anything over the counter. Also do for a pelvic. No other issues. JAYNE Sanchez Attn: Accounting,[address] [place], [address], [facility] 12/18/2016 10:25:25 OBGyn Episode No OBEpisode recorded.
--- OUTSIDE RECORDS SUMMARY | 2024-10-01 12:32 | XMS_ITS | Clinical Summary ---
Author Organization [facility] Address [address] [place] [address] Phone Care Team Providers Care Picture Painter Name Role Phone Unavailable Unavailable Unavailable Reason for Visit and Chief Complaint The Chief Complaint is: Miscarriage f/u Plan of Treatment - Blood typing B+ - Last Documented On 03/03/2017 4:28PM ; [facility] - Quantitative HCG level not needed today since urine HCG negative - Last Documented On 03/03/2017 4:28PM ; [facility] Contraception: start Q3 month cycling low dose OCP (may start today), has used pills in past with success Teratoma: she has known of its presence for a few years and declines surgical therapy. Occasional mild pain. She was asked to let me know if severe pain or other concerning symptoms. She is aware it will not resolve on its own and has a small chance of malignancy Last pap in outside records 08/2015. She has h/o LEEP so she'll return in near future for pap/annual - Last Documented On 03/03/2017 4:28PM ; [facility] Education and Decision Aids were provided during visit for: Patient counseling : Use of oral contraceptives discussed in detail including rare occurrence of heart attack, stroke, and leg clots. Patient understands that smoking increases the risk of serious side effects with any steroid-based contraceptive method Last Documented On 7 11:22AM ; [facility] Assessments Includes: Assessments from this encounter Findings - Complete spontaneous . She was advised not to conceive for a minimum of 3 months - Last Documented On 03/03/2017 4:28PM ; [facility] - Dermoid cyst of the ovary - Last Documented On 03/03/2017 4:28PM ; [facility] Patient was counseled that she did nothing to cause miscarriage and that she could not have done anything to prevent miscarriage. Having one miscarriage does not increase the risk of future loss. - Last Documented On 03/03/2017 4:28PM ; [facility] Instructions Includes: Instructions from this encounter Education and Decision Aids were provided during visit for: Patient counseling : Use of oral contraceptives discussed in detail including rare occurrence of heart attack, stroke, and leg clots. Patient understands that smoking increases the risk of serious side effects with any steroid-based contraceptive method Last Documented On 7 11:22AM ; [facility] Medical Equipment - Implanted Devices Includes: Current Devices No Medical Equipment Recorded Medications Includes: Medications discussed during this encounter and other current Medications New / Renewed during this visit ZULEMA CASTANON MD on 03/03/2017 Levonorgest-Eth Estrad 91-Da y 0.1-0.02 & 0.01MG Oral Tablet Provider: ZULEMA DAWSON MD day supply: 91 tablet, 0 refills Diagnosis: One tablet daily Pharmacy: [address] [id number] Last Documented On 05/30/2017 9:20AM By ZULEMA CASTANON MD ; [facility] Current Medications (continue as prescribed) Sertraline HCl 50MG Oral Tablet 02/10/2017 Provider: Diagnosis: Last Documented On 7 11:58AM By FEDE WATT ; [facility] Past Medications on file Levonorgest-Eth Estrad 91-Da y 0.1-0.02 & 0.01MG Oral Tablet 06/04/2017 - 06/03/2018 Provider: ZULEMA CASTANON MD Diagnosis: One tablet daily Last Documented On 06/04/2017 1:40PM By ZULEMA CASTANON MD ; [facility] Medications Administered Includes: Administered Medications from this encounter No Administered Medications Recorded Vital Signs Includes: Vital Signs from this encounter Vital Name 03/03/2017 10:35A 03/03/2017 10: 33A Blood Pressure Sitting (mmHg) 108/70 Pulse Rate-Sitting (bpm) 84 Height (in) 59 59 Weight (lb) 117.2 Body Mass Index (kg/m2) 23.7 Body Surface Area (m2) 1.5 Last Documented: On 03/03/2017 10:41A M ; [facility] On 03/03/2017 10:33AM ; [facility] Results Includes: Results discussed during this encounter Urine HCG [facility] Ordered by ZULEMA CASTANON MD on 7 Collected: Reported: 03/03/2017 11:36 Last Documented On 7 11:36AM ; [facility] Reviewed on 03/03/2017; All test results are final unless otherwise noted. Urine UCG neg N (Normal) Last Documented On 7 11:36AM ; [facility] INT. QC ACCEPTABLE? yes N (Normal) Last Documented On 7 11:36AM ; [facility] [address] # & EXP. DATE [id number] 04/15/2018 N (Normal) Last Documented On 7 11:36AM ; [facility] History of Present Illness Includes: History of Present Illness from this encounter MADELYN SINGH is a 27 year old female. - Patient is no longer taking pain medication - Bleeding has stopped about a week ago - No fever - Pelvic pain on occsaion but usually takes Tylenol or ibuprofen - No vaginal discharge - No dizziness Social History Description Last Updated Alcohol use: 2 drinks or less per day no t often 03/03/2017 Last Documented On 7 4:28PM ; [facility] Cigarette smoking 2 packs per weeks 02/14 Last Documented On 7 4:28PM ; [facility] Sexually active 03/03/2017 Last Documented On 7 4:28PM ; [facility] Smoking status : Current everyday smoker 03/03/2017 Last Documented On 7 4:28PM ; [facility] Procedures and Surgical History Includes: Procedures from this encounter Procedures Code Diagnosis Performing Provider Service L ocation Service Date Clinical summary provided to patient Last Documented On 7 11:22AM ; [facility] Medical History Includes: Medical History addressed during this encounter Description Last Updated Last pap smear date 09/14/2015 03/03/2017 Last Documented On 7 4:28PM ; [facility] Contraception: none 03/03/2017 Last Documented On 7 4:28PM ; [facility] Aborta 1 03/03/2017 Last Documented On 7 4:28PM ; [facility] 1 03/03/2017 Last Documented On 7 4:28PM ; [facility] LMP: 11/201603/03/2017 Last Documented On 7 4:28PM ; [facility] Para 0 03/03/2017 Last Documented On 7 4:28PM ; [facility] Family History Includes: Family History addressed during this encounter Description Last Updated Family history of malignant neoplasm of the ovary maternal cousin and grandmother 02/10/2017 Last Documented On 7 10:33AM ; [facility] No family history of malignant neoplasm of large intestine 02/10/2017 Last Documented On 7 10:33AM ; [facility] diabetes 02/10/2017 Last Documented On 7 10:33AM ; [facility] Family history of malignant female breas t neoplasm mother 02/10/2017 Last Documented On 7 10:33AM ; [facility] Review of Systems Includes: Review of [...] Active Last Documented On 7 12:58PM ; [facility] Encounters Encounter Provider Location Date Check-In Time Check-Out Time Diagnosis CONSULTATION ZULEMA CASTANON MD [facility] 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
--- OUTSIDE RECORDS SUMMARY | 2024-10-01 12:32 | XMS_ITS | Clinical Summary ---
Author Organization [facility] Address [address] [place] [address] Phone Care Team Providers Care Metal Patternmaker Apprentice Name Role Phone Unavailable Unavailable Unavailable Reason for Visit and Chief Complaint ULTRASOUND 45 MIN. - ULTRASOUND Plan of Treatment No Plan of Treatment Recorded Assessments Includes: Assessments from this encounter No Assessments Recorded Medical Equipment - Implanted Devices Includes: Current Devices No Medical Equipment Recorded Medications Includes: Medications discussed during this encounter and other current Medications Current Medications (continue as prescribed) Sertraline HCl 50MG Oral Tablet 02/10/2017 Provider: Diagnosis: Last Documented On 7 11:58AM By FEDE WATT ; [facility] Medications Administered Includes: Administered Medications from [...] Active Last Documented On 7 12:58PM ; [facility] Encounters Encounter Provider Location Date Check-In Time Check-Out Time Diagnosis ULTRASOUND 45 MIN. - ULTRASOUND ZULEMA CASTANON MD [facility] VEHICLE UPHOLSTERER 7 12:44PM 1:58PM Insurance Includes: Active Insurance Policies Plan Name Member ID Group # Subscriber Relationship Effect andreas Dates 1 - [facility] [id number] RAMOS SINGH Parent Clinical Notes Includes: Clinical Notes from this encounter No Clinical Notes Recorded
--- NOTE | 2024-10-25 07:46 | PM.OBTRLD ---
OB - Triage/Final Diagnosis Visit Information Comments/Additional reasons for admission: I have assessed the risk for this patient, Tejal Pérez, and determined that she would benefit from observation care. Final Diagnosis (1) False labor: Code(s): O47.9 - False labor, unspecified Status: Acute
== END 2024-10-01 13:11 | disposition home or self-care (01) ==
PROVIDERS: Admitting Provider Obstetrics & Gynecology; Visit Provider Obstetrics & Gynecology
DX: O47.1 False labor at or after 37 completed weeks of gestation (principal); Z3A.37 37 weeks gestation of pregnancy
CPT/HCPCS: 96372; G0378; G0379; J3105; J7120

== ENCOUNTER 2024-10-02 10:06 | Inpatient (IN) | payer OTHER, SELFPAY ==
[2024-10-02] VITALS (192 sets, daily range): BP systolic 85–142; BP diastolic 50–90; PULSE 63–153; TEMP 36.4–37.3; O2SAT 92–100; BMI 38.9
--- OUTSIDE RECORDS SUMMARY | 2024-10-02 10:29 | XMS_ITS ---
Author Organization [facility] Address [address] [place] [address] Phone Care Team Providers Care Creping Machine Operator Name Role Phone Unavailable Unavailable Unavailable Plan of Treatment Findings Encounter Date Ordered blood typing B+ CONSULTATION with ZULEMA CASTANON MD 03/03/2017 Last Documented On 7 4:28PM ; [facility] Ordered quantitative HCG lev el not needed today since urine HCG negative CONSULTATION with ZULEMA CASTANON MD 03/03/2017 Last Documented On 7 4:28PM ; [facility] Instructions to patient Instructions for patient : B reast Self Exam discussed Last Documented On 7 1:06PM ; [facility] Education and Decision Aids were provided during visit for: Patient counseling : Use of oral contraceptives discussed in detail including rare occurrence of heart attack, stroke, and leg clots. Patient understands that smoking increases the risk of serious side effects with any steroid-based contraceptive method Last Documented On 7 1:22PM ; [facility] STD screening offered and de clined Last Documented On 7 1:06PM ; [facility] Patient counseling : Use of oral contraceptives discussed in detail including rare occurrence of heart attack, stroke, and leg clots. Patient understands that smoking increases the risk of serious side effects with any steroid-based contraceptive method Last Documented On 7 11:22AM ; [facility] Assessments Includes: Assessments for all patient encounters Findings Encounter Date Routine pelvic exam MEMORIAL DESIGNER EXAM with ZULEMA CASTANON MD 06/04/2017 Last Documented On 7 1:26PM ; [facility] Complete spontaneous abortio n . 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 with ZULEMA CASTANON MD 02/10/2017 Last Documented On 7 3:41PM ; [facility] with threatened NEW MEMORIAL DESIGNER EXAM with ZULEMA CASTANON MD 02/10/2017 Last Documented On 7 3:41PM ; [facility] Instructions Includes: Instructions for all patient encounters Instructions to patient Instructions for patient : B reast Self Exam discussed Last Documented On 7 1:06PM ; [facility] Education and Decision Aids were provided during visit for: Patient counseling : Use of oral contraceptives discussed in detail including rare occurrence of heart attack, stroke, and leg clots. Patient understands that smoking increases the risk of serious side effects with any steroid-based contraceptive method Last Documented On 7 1:22PM ; [facility] STD screening offered and de clined Last Documented On 7 1:06PM ; [facility] Patient counseling : Use of oral contraceptives discussed in detail including rare occurrence of heart attack, stroke, and leg clots. Patient understands that smoking increases the risk of serious side effects with any steroid-based contraceptive method Last Documented On 7 11:22AM ; [facility] Medical Equipment - Implanted Devices Includes: Current and historical Devices No Medical Equipment Recorded Medications Includes: Current and historical Medications Current Medications (continue as prescribed) Sertraline HCl 50MG Oral Tablet 02/10/2017 Provider: Diagnosis: Last Documented On 11:58AM By FEDE WATT ; [facility] Past Medications on file Levonorgest-Eth Estrad 91-Da y 0.1-0.02 & 0.01MG Oral Tablet 06/04/2017 - 06/03/2018 Provider: ZULEMA CASTANON MD Diagnosis: One tablet daily Last Documented On 06/04/2017 1:40PM By ZULEMA CASTANON MD ; [facility] Levonorgest-Eth Estrad 91-Da y 0.1-0.02 & 0.01MG Oral Tablet 05/30/2017 - 06/04/2017 Provider: ZULEMA CASTANON MD Diagnosis: One tablet daily Last Documented On 06/04/2017 1:23PM By ZULEMA CASTANON MD ; [facility] Levonorgest-Eth Estrad 91-Da y 0.1-0.02 & 0.01MG Oral Tablet 03/03/2017 - 05/30/2017 Provider: ZULEMA CASTANON MD Diagnosis: One tablet daily Last Documented On 05/30/2017 9:20AM By ZULEMA CASTANON MD ; [facility] Medications Administered Includes: Administered Medications in patient's chart No Administered Medications Recorded Results Includes: Results from 10/03/2023 through 10/02/2024 No Results Recorded For Specified Dates History of Present Illness History of Present Illness not supported for this document type No History of Present Illness Recorded Social History Description Last Updated In monogamous relationship 06/04/2017 Last Documented On 7 1:26PM ; [facility] Alcohol use: 2 drinks or less per day oc c 06/04/2017 Last Documented On 7 1:26PM ; [facility] Cigarette smoking less than 1/2 pack a d ay 06/04/2017 Last Documented On 7 1:26PM ; [facility] Sexually active 06/04/2017 Last Documented On 7 1:26PM ; [facility] Smoking status : Current everyday smoker 03/03/2017 Last Documented On 7 4:28PM ; [facility] Cigarette smoking: history 02/10/2017 Last Documented On 7 3:41PM ; [facility] Medical History Includes: Medical History in patient's chart Description Last Updated Contraception: OCP 06/04/2017 Last Documented On 7 1:26PM ; [facility] Aborta 1 06/04/2017 Last Documented On 7 1:26PM ; [facility] 1 06/04/2017 Last Documented On 7 1:26PM ; [facility] Last pap smear date 09/14/2015 06/04/2017 Last Documented On 7 1:26PM ; [facility] LMP: 05/29/2017 06/04/2017 Last Documented On 7 1:26PM ; [facility] Para 06/04/2017 Last Documented On 7 1:26PM ; [facility] Result: normal 06/04/2017 Last Documented On 7 1:26PM ; [facility] History of anxiety disorder NOS 02/11/20 Last Documented On 7 3:41PM ; [facility] History of asthma 02/10/2017 Last Documented On 7 3:41PM ; [facility] Family History Includes: Family History in patient's chart Description Last Updated Family history of malignant neoplasm of the ovary maternal cousin and grandmother 02/10/2017 Last Documented On 7 3:41PM ; [facility] No family history of malignant neoplasm of large intestine 02/10/2017 Last Documented On 7 3:41PM ; [facility] diabetes 02/10/2017 Last Documented On 7 3:41PM ; [facility] Family history of malignant female breas t neoplasm mother 02/10/2017 Last Documented On 7 3:41PM ; [facility] Review of Systems Review of Systems [...] Active Last Documented On 7 12:58PM ; [facility] Insurance Includes: Active Insurance Policies Plan Name Member ID Group # Subscriber Relationship Effect andreas Dates 1 - [facility] [id number] RAMOS SINGH Parent Clinical Notes Includes: Signed Clinical Notes starting from 07/05/2022 No Clinical Notes Recorded
--- OUTSIDE RECORDS SUMMARY | 2024-10-02 10:29 | XMS_ITS | Continuity of Care Document ---
Author Organization [facility] Address [address] [place] [address] Phone Care Team Providers Care Stock Pitcher Name Role Phone Anders Mendez MD Unavailable Unavailable Advance Directives Directive Yes / No Effective Date File Name No Information Encounters Encounter Description Practice Location Reason(s) For Visit Diagnoses Date Provider Providers Copied on Encounter [facility], [address] [place], [place], [id number], [place] tel:[phone] [facility] Professional No Information [address] Vanessa Mcnamara. [address] [place] [place], [id number], [place]. tel:[phone] Family History Family Member Type Diagnosis Age At Onset No Information Payers Payer name Insurance type Covered constitution party ID Authoriza tion(s) No Information Social History [...]
--- OUTSIDE RECORDS SUMMARY | 2024-10-02 10:29 | XMS_ITS | Clinical Summary ---
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 Plan of Treatment No Plan of Treatment Recorded Assessments Includes: Assessments from this encounter No Assessments Recorded Medical Equipment - Implanted Devices Includes: Current Devices No Medical Equipment Recorded Medications Includes: Medications discussed during this encounter and other current Medications Current Medications (continue as prescribed) Sertraline HCl 50MG Oral Tablet 02/10/2017 Provider: Diagnosis: Last Documented On 7 11:58AM By FEDE WATT ; [facility] Medications Administered Includes: Administered Medications from [...] Active Last Documented On 7 12:58PM ; [facility] Insurance Includes: Active Insurance Policies Plan Name Member ID Group # Subscriber Relationship Effect andreas Dates 1 - [facility] [id number] RAMOS SINGH Parent Clinical Notes Includes: Clinical Notes from this encounter No Clinical Notes Recorded
--- OUTSIDE RECORDS SUMMARY | 2024-10-02 10:29 | XMS_ITS | Clinical Summary ---
Author Organization [facility] Address [address] [place] [address] Phone Care Team Providers Care Engineering And Development Director Name Role Phone Unavailable Unavailable Unavailable Reason for Visit and Chief Complaint The Chief Complaint is: Miscarriage f/u Plan of Treatment - Blood typing B+ - Last Documented On 03/03/2017 4:28PM ; [facility] - Quantitative HCG level not needed today since urine HCG negative - Last Documented On 03/03/2017 4:28PM ; [facility] Contraception: start Q3 month cycling low [...] - Last Documented On 03/03/2017 4:28PM ; [facility] Education and Decision Aids were provided during visit for: Patient counseling : Use of oral contraceptives discussed in detail including rare occurrence of heart attack, stroke, and leg clots. Patient understands that smoking increases the risk of serious side effects with any steroid-based contraceptive method Last Documented On 7 11:22AM ; [facility] Assessments Includes: Assessments from this encounter Findings - Complete spontaneous . She was advised not to conceive for a minimum of 3 months - Last Documented On 03/03/2017 4:28PM ; [facility] - Dermoid cyst of the ovary - Last Documented On 03/03/2017 4:28PM ; [facility] Patient was counseled that she did nothing to cause miscarriage and that she could not have done anything to prevent miscarriage. Having one miscarriage does not increase the risk of future loss. - Last Documented On 03/03/2017 4:28PM ; [facility] Instructions Includes: Instructions from this encounter Education and Decision Aids were provided during visit for: Patient counseling : Use of oral contraceptives discussed in detail including rare occurrence of heart attack, stroke, and leg clots. Patient understands that smoking increases the risk of serious side effects with any steroid-based contraceptive method Last Documented On 7 11:22AM ; [facility] Medical Equipment - Implanted Devices Includes: Current Devices No Medical Equipment Recorded Medications Includes: Medications discussed during this encounter and other current Medications New / Renewed during this visit ZULEMA CASTANON MD on 03/03/2017 Levonorgest-Eth Estrad 91-Da y 0.1-0.02 & 0.01MG Oral Tablet Provider: ZULEMA DAWSON MD day supply: 91 tablet, 0 refills Diagnosis: One tablet daily Pharmacy: [address] [id number] Last Documented On 05/30/2017 9:20AM By ZULEMA CASTANON MD ; [facility] Current Medications (continue as prescribed) Sertraline HCl 50MG Oral Tablet 02/10/2017 Provider: Diagnosis: Last Documented On 7 11:58AM By FEDE WATT ; [facility] Past Medications on file Levonorgest-Eth Estrad 91-Da y 0.1-0.02 & 0.01MG Oral Tablet 06/04/2017 - 06/03/2018 Provider: ZULEMA CASTANON MD Diagnosis: One tablet daily Last Documented On 06/04/2017 1:40PM By ZULEMA CASTANON MD ; [facility] Medications Administered Includes: Administered Medications from this encounter No Administered Medications Recorded Vital Signs Includes: Vital Signs from this encounter Vital Name 03/03/2017 10:35A 03/03/2017 10: 33A Blood Pressure Sitting (mmHg) 108/70 Pulse Rate-Sitting (bpm) 84 Height (in) 59 59 Weight (lb) 117.2 Body Mass Index (kg/m2) 23.7 Body Surface Area (m2) 1.5 Last Documented: On 03/03/2017 10:41A M ; [facility] On 03/03/2017 10:33AM ; [facility] Results Includes: Results discussed during this encounter Urine HCG [facility] Ordered by ZULEMA CASTANON MD on 7 Collected: Reported: 03/03/2017 11:36 Last Documented On 7 11:36AM ; [facility] Reviewed on 03/03/2017; All test results are final unless otherwise noted. Urine UCG neg N (Normal) Last Documented On 7 11:36AM ; [facility] INT. QC ACCEPTABLE? yes N (Normal) Last Documented On 7 11:36AM ; [facility] LOT # & EXP. DATE [id number] 04/15/2018 N (Normal) Last Documented On 7 11:36AM ; [facility] History of Present Illness Includes: History [...] 03/03/2017 Last Documented On 7 4:28PM ; [facility] Cigarette smoking 2 packs per weeks 02/14 Last Documented On 7 4:28PM ; [facility] Sexually active 03/03/2017 Last Documented On 7 4:28PM ; [facility] Smoking status : Current everyday smoker 03/03/2017 Last Documented On 7 4:28PM ; [facility] Procedures and Surgical History Includes: Procedures from this encounter Procedures Code Diagnosis Performing Provider Service L ocation Service Date Clinical summary provided to patient Last Documented On 7 11:22AM ; [facility] Medical History Includes: Medical History addressed during this encounter Description Last Updated Last pap smear date 09/14/2015 03/03/2017 Last Documented On 7 4:28PM ; [facility] Contraception: none 03/03/2017 Last Documented On 7 4:28PM ; [facility] Aborta 1 03/03/2017 Last Documented On 7 4:28PM ; [facility] 1 03/03/2017 Last Documented On 7 4:28PM ; [facility] LMP: 11/201603/03/2017 Last Documented On 7 4:28PM ; [facility] Para 0 03/03/2017 Last Documented On 7 4:28PM ; [facility] Family History Includes: Family History addressed during this encounter Description Last Updated Family history of malignant neoplasm of the ovary maternal cousin and grandmother 02/10/2017 Last Documented On 7 10:33AM ; [facility] No family history of malignant neoplasm of large intestine 02/10/2017 Last Documented On 7 10:33AM ; [facility] diabetes 02/10/2017 Last Documented On 7 10:33AM ; [facility] Family history of malignant female breas t neoplasm mother 02/10/2017 Last Documented On 7 10:33AM ; [facility] Review of Systems Includes: Review of [...] Active Last Documented On 7 12:58PM ; [facility] Encounters Encounter Provider Location Date Check-In Time Check-Out Time Diagnosis CONSULTATION ZULEMA CASTANON MD [facility] 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
--- OUTSIDE RECORDS SUMMARY | 2024-10-02 10:29 | XMS_ITS | Clinical Summary ---
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 Plan of Treatment No Plan of Treatment Recorded Assessments Includes: Assessments from this encounter No Assessments Recorded Medical Equipment - Implanted Devices Includes: Current Devices No Medical Equipment Recorded Medications Includes: Medications discussed during this encounter and other current Medications Current Medications (continue as prescribed) Sertraline HCl 50MG Oral Tablet 02/10/2017 Provider: Diagnosis: Last Documented On 7 11:58AM By FEDE WATT ; [facility] Medications Administered Includes: Administered Medications from [...] Active Last Documented On 7 12:58PM ; [facility] Insurance Includes: Active Insurance Policies Plan Name Member ID Group # Subscriber Relationship Effect andreas Dates 1 - [facility] [id number] RAMOS SINGH Parent Clinical Notes Includes: Clinical Notes from this encounter No Clinical Notes Recorded
--- OUTSIDE RECORDS SUMMARY | 2024-10-02 10:29 | XMS_ITS | Data Portability ---
Author Organization [facility] Address [address] [place] [address] Care Team Providers Care Vp Lab Name Role Phone TRAE MALONEY Primary Care Provider Assessment Encounter Date Assessment Date Assessment LastModified by Organization Details LastModified Time 09/22/2024 09/22/2024 Patient is _35_weeks . Discussed plan. Not available 09/22/2024 13:27:35 Plan of Treatment Reminders Order Date Submit Date Provider Last Modified By Organization Details Last Modified Time Details Appointments U/S OB GROWTH 2024 10:30A M ULTRASOUND Not available Not available Not available NST 2024 11:00A M NST SCHEDULE Not available Not available Not available OB ROUTINE 2024 11:30A M ISAURA YatesM Not available Not available Not available U/S OB BPP 2024 10:30A M ULTRASOUND Not available Not available Not available NST 2024 11:00A M NST SCHEDULE Not available Not available Not available OB ROUTINE 2024 11:30A M ISAURA YatesM Not available Not available Not available INDUCTI ON 2024 05:00A M Winnie Manrique CNM Not available Not available Not available U/S OB BPP 2024 10:30A M ULTRASOUND Not available Not available Not available NST 2024 11:00A M NST SCHEDULE Not available Not available Not available OB ROUTINE 2024 11:30A M Winnie Burton, CNM Not available Not available Not available Lab None recorde d. Referral None recorde d. Procedures None recorde d. Surgeries None recorde d. Imaging US, obstetr ic, biophys ical profile + non-str ess test 2024 025 [email or web address] [address], [address], [place], [address], 09/29/2024 17:09:20 non-str ess test 2024 025 [email or web address] [address], [address], [place], [address], 09/23/2024 02:47:05 Medication Orders None recorde d. Patient TargetsNo targets recorded. Patient InstructionsNo instructions recorded. Reason for Referral None Reported. Results Created Date Observation Date Name Description Value Unit Range Abnormal Flag Note LastModifiedBy Organization Detail LastModifiedTime 08/28/1908/27/2024 GTT - GESTA ALEA L, 3 HOUR, ACOG glucose, fasting acog 89 mg/dL 70-94 Not Available [facility] (Lab) [address] [place], [address], 08/28/2024 03:29:30 08/28/19 25 08/27/2024 GTT - GESTA ALEA L, 3 HOUR, ACOG glucose, 1 hour acog 253 mg/dL 70-179 high Not Available [facility] (Lab) [address] [place], [address], 08/28/2024 03:29:30 08/28/19 25 08/27/2024 GTT - GESTA ALEA L, 3 HOUR, ACOG glucose, 2 hour acog 211 mg/dL 70-154 high Not Available [facility] (Lab) [address] [place], [address], 08/28/2024 03:29:30 08/28/19 25 08/27/2024 GTT - GESTA ALEA L, 3 HOUR, ACOG glucose, 3 hour acog 183 mg/dL 70-139 high Not Available [facility] (Lab) [address] [facility], [place], [address], 08/28/2024 03:29:30 09/23/19 25 09/22/2024 CULTU RE: GROUP B STREP SCREE N, REFLE X SUSCE PTIBI LITY result report SEE RESULT S BELOW Test: Cultu re: Group B Strep , Refle x Susce ptibi lity ([facility]/ [facility] ) Speci men Sourc e: Vagin a/Rec anastasia Speci men Type: Vagin al/Re ctal Speci men Date: 025 1339 Resul t Date: 2024 1400 Resul t Statu s: Final resul t Abnor mal: No Resul ting Lab: [facility] [address] [facility] [address] Tel: CULTU RE ----- ----- ----- --- No Group B strep isola kassi at 2 days (amilcar ctive broth enhan cemen t) Not Available [facility] (Lab) [address] [facility], [place], [address], 09/25/2024 15:04:55 08/26/19 25 08/25/2024 US, obste tric, limit ed No observ ation record ed. [facility] [address], [place], [address], 08/25/2024 17:56:44 08/26/19 25 08/25/2024 US, obste tric, limit ed No observ ation record ed. [email or web address] [address], [place], [address], 09/02/2024 13:07:58 09/09/19 25 09/08/2024 US, obste tric, follo w-up No observ ation record ed. [email or web address] [address], [place], [address], 09/10/2024 17:31:28 09/09/19 25 09/08/2024 US, obste tric, follo w-up No observ ation record ed. [email or web address] [place] [address], [place], [address], 09/08/2024 18:21:46 09/09/19 25 09/08/2024 US, miranda silverman, bioph ysica l profi le + non-s tress test No observ ation record ed. [email or web address] [place] [address], [place], [address], 09/08/2024 18:21:57 09/09/19 25 09/08/2024 non-s tress test No observ ation record ed. [email or web address] [place] [address], [place], [address], 09/08/2024 18:24:38 09/10/19 non-s tress test No observ ation record ed. [email or web address] [place] [address], [place], [address], 09/09/2024 12:46:03 09/16/19 25 09/15/2024 US, miranda silverman, bioph ysica l profi le + non-s tress test No observ ation record ed. [email or web address] [place] [address], [place], [address], 09/15/2024 18:31:07 09/16/19 25 09/15/2024 US, obstcherry silverman, follo w-up No observ ation record ed. [email or web address] [address], [place], [address], 09/16/2024 19:37:21 09/17/19 25 09/15/2024 non-s tress test No observ ation record ed. [email or web address] [place] [address], [place], [address], 09/16/2024 09:48:15 09/17/1909/15/2024 non-s tress test No observ ation record ed. [email or web address] [place] [address], [place], [address], 09/16/2024 10:06:54 09/23/19 25 09/22/2024 non-s tress test No observ ation record ed. [place] [address], [place], [address], 09/22/2024 13:21:04 09/23/19 non-s tress test No observ ation record ed. [email or web address] [place] [address], [place], [address], 09/22/2024 12:14:19 09/23/1909/22/2024 US, miranda silverman, bioph ysica l profi le + non-s tress test No observ ation record ed. [email or web address] [place] [address], [place], [address], 09/22/2024 13:06:54 09/23/19 25 09/22/2024 US, miranda silverman, follo w-up No observ ation record ed. [address] [facility], [place], [address], 09/24/2024 08:55:18 09/30/1909/29/2024 US, miranda silverman, bioph ysica l profi le + non-s tress test No observ ation record ed. [email or web address] [place] [address], [place], [address], 09/29/2024 13:18:52 04/09/29/2024 US, obste tric, follo w-up No observ ation record ed. [email or web address] [address], [place], [address], 09/30/2024 18:38:22 Result Notes None recorded. 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 1 16:26:59 Pregnanc y 81133504 Completed 202006/19/2021 Susana mann [facility] 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 Schd for left salpingo -oophere ctomy with c/s 05/21 Annika mann [facility] 2 16:14:30 Dysplasi a of cervix 98404420 Completed Conizati on of the cervix-c heck in 16 weeks Annika mann [facility] 2 16:14:30 Low lying placenta 337667820 Completed 202002/06/2021 1.8cm. Resolved 02/06/21. Annika mann [facility] 2 16:14:30 Gestatio nal diabetes mellitus 03238696 Completed BS QID, ante testing tu/fri Annika mann [facility] 2 16:14:30 Gastroes ophageal reflux disease 505593369 Completed PEPCID/Z ANTAC Annika Bellsunil l null, [facility] 2 16:14:30 Gastroes ophageal reflux disease 748432131 Active PEPCID/Z ANTAC Annika Bohnenstieh l null, [facility] 2 16:14:30 Benign teratoma of ovary 220514258 Completed 06/11/2024 8 cm - stable. Schd for left salpingo -oophere ctomy with c/s 05/21 FANTA DEY MD [address], [place], [address], [facility] 4 12:42:47 Breech presenta tion 2158207 Completed Has c/s schd 05/21 Annika reyna null, [facility] 2 16:14:30 Polyhydr amnios 69182619 Completed 27 on 05/08 Annika reyna null, [facility] 2 16:14:30 Body mass index 40+ - severely obese 078347465 Active 2021 Radha Parikh MD [address], [place], [address], [facility] 2 13:49:08 Family history of malignan t neoplasm of breast in first degree relative 435607624 Active 2022 mom diagnose d 38, 46 Radha Parikh MD [address], [place], [address], [facility] 3 14:57:23 Past pregnanc y history of gestatio nal diabetes mellitus 987790971 Active 2023 Lisa Ashley null, [facility] 4 11:52:56 History of abnormal cervical Papanico laou smear 432784745 Active 202309/21/2019 ascus neg hpv Lisa Ashley null, [facility] 4 11:53:46 Pregnanc y 54186910 Active 2023 Susana Hernandez null, [facility] 4 16:03:04 Past pregnanc y history of section 231603100 Active desires TOLAC FANTA DEY MD [address], [place], [address], [facility] 4 12:39:36 Past pregnanc y history of section 058036788 Active desires TOLAC FANTA DEY MD [address], [place], [address], [facility] 4 12:39:36 Female steriliz ation Active s/p LSO at last C/s, consider ing R salpinge ctomy at delivery ; will need papers signed at 32 weeks FANTA DEY MD [address], [place], [address], [facility] 4 15:54:30 Polyhydr amnios 99867748 Active Betty [facility], [facility] 5 08:56:33 Polyhydr amnios 03305757 Active Betty Perez null, [facility] 5 08:56:33 Gestatio nal diabetes mellitus 47913423 Active BS QID , serial growth Betty Perez null, [facility] 5 14:44:28 Gestatio nal diabetes mellitus 97740213 Active BS QID , serial growth Betty Perez null, [facility] 5 14:44:28 Body mass index 30+ - obesity 180769229 Active antenata l testing weekly @ 37wks [facility] 14:46:12 Body mass index 30+ - obesity 780330859 Active antenata l testing weekly @ 37wks [facility] 14:46:12 Problem Notes None recorded. Procedures Surgical History Date Name Laterality Status Provider Name and Address Organization Details Recorded Time 4 Date of Last Pap Smear completed Susana Hernandez [facility] 04/12/2024 15:23:38 1 SECTION (SURG) completed [facility] 03/01/2024 11:59:06 2 Colposcopy completed [facility] 03/01/2024 11:59:22 2 cone biopsy completed [facility] 10/13/2020 18:43:35 6 extraction of wisdom tooth completed [facility] 03/01/2024 11:59:37 Imaging Results Imaging Date Name Status LastModified by Organiz ation Details LastModified Time 08/25/2024 US, obstetric, limited completed digna [place] [address], [place], [address], 08/25/2024 17:56:44 08/25/2024 US, obstetric, limited completed [address], [place], [address], 09/02/2024 13:07:58 09/08/2024 US, obstetric, follow-up completed [email or web address] [address], [place], [address], 09/10/2024 17:31:28 09/08/2024 US, obstetric, follow-up completed [email or web address] [place] [address], [place], [address], 09/08/2024 18:21:46 09/08/2024 US, obstetric, biophysical profile + non-stress test completed [email or web address] [place] [address], [place], [address], 09/08/2024 18:21:57 09/08/2024 non-stress test completed [email or web address] [place] [address], [place], [address], 09/08/2024 18:24:38 09/09/2024 non-stress test completed [address], [place], [address], 09/09/2024 12:46:03 09/15/2024 US, obstetric, biophysical profile + non-stress test completed [address], [place], [address], 09/15/2024 18:31:07 09/15/2024 US, obstetric, follow-up completed [email or web address] Abb[address], [place], [address], 09/16/2024 19:37:21 09/15/2024 non-stress test completed [place] [address], [place], [address], 09/16/2024 09:48:15 09/15/2024 non-stress test completed [email or web address] [place] [address], [place], [address], 09/16/2024 10:06:54 09/22/2024 non-stress test completed [address], [place], [address], 09/22/2024 13:21:04 09/22/2024 non-stress test completed [email or web address] [place] [address], [place], [address], 09/22/2024 12:14:19 09/22/2024 US, obstetric, biophysical profile + non-stress test completed [email or web address] [place] [address], [place], [address], 09/22/2024 13:06:54 09/22/2024 US, obstetric, follow-up completed [address], [place], [address], 09/24/2024 08:55:18 09/29/2024 US, obstetric, biophysical profile + non-stress test completed [facility] [address], [place], [address], 09/29/2024 13:18:52 09/29/2024 US, obstetric, follow-up active [email or web address] [address], [place], [address], 09/30/2024 18:38:22 Procedure Notes None recorded. Medical Equipment None Reported. Allergies Allergen ID Allergen Name Allergen Category Reaction Reaction Severity Criticality Documentation Date Start Date Code Code System Note Provider Name and Address Organization Details Recorded Time 67083 Dilaudid medicatio n Not available Not available Not available 07/14/2020 84470 3 RxNorm Lisa mann [facility] 17:22:01 34517 hydromorp kat medicatio n Not available Not available Not available 10/13/2020 3423 RxNorm Lisa mann [facility] 18:44:41 Medications Name Sig Start Date Stop Date Status Note LastModified by Organization Details LastModified Time OneTouch Ultra Blue Test Strips use 4 times a day 09/29 completed Not Available Not Available Not Available venlafaxine ER 37.5 mg capsule,ext ended release 24 hr TAKE 1 CAPSULE BY MOUTH EVERY DAY active Not Available Not Available No t Available azithromyci n 250 mg tablet TAKE 2 TABLETS BY MOUTH DAILY FOR 1 DAY THEN TAKE 1 TABLET BY MOUTH FOR 4 DAYS 04/22 completed Not Available Not Available Not Available ibuprofen 800 mg tablet TK 1 T PO Q 4 TO 6 H PRF DENTAL PAIN 09/13 completed Not Available Not Available Not Available fluconazole 150 mg tablet 04/22 completed Not Available Not Available Not Available hydrocodone 5 mg-acetamin ophen 325 mg tablet TAKE 1 TABLET BY MOUTH EVERY 4 TO 5 HOURS NEEDED FOR MODERATE PAIN 05/29 completed Not Available Not Available Not Available penicillin V potassium 500 mg tablet TK 1 T PO QID TAT 09/13 completed Not Available Not Available Not Available metronidazo le 500 mg tablet TAKE 1 TABLET BY MOUTH TWICE DAILY 02/06 completed Not Available Not Available Not Available tramadol 50 mg tablet TK 1 TO 2 TS PO Q 6 H PRN P 09/13 completed Not Available Not Available Not Available triamcinolo ne acetonide 0.1 % topical cream APPLY TOPICALLY TO THE AFFECTED AREA 1 TO 2 TIMES DAILY NEEDED 03/01 completed Not Available Not Available Not Available ondansetron 8 mg disintegrat ing tablet DISSOLVE 1 TABLET ON THE TONGUE TWICE DAILY 05/29 completed Not Available Not Available Not Available amoxicillin 875 mg tablet TK 1 T PO Q 12 H UNTIL GONE 05/10 completed Not Available Not Available Not Available metoclopram porfirio 5 mg tablet TAKE 1 TABLET BY MOUTH EVERY 4 TO 6 HOURS NEEDED 05/29 completed Not Available Not Available Not Available DOK 100 mg capsule TAKE 1 CAPSULE BY MOUTH TWICE DAILY 05/29 completed Not Available Not Available Not Available SLM TechnologiesTouch Ultra Test strips USE TO TEST BLOOD SUGAR FOUR TIMES DAILY 09/29 completed Not Available Not Available Not Available benzonatate 100 mg capsule 04/22 completed Not Available Not Available Not Available dexamethaso ne 4 mg tablet 09/13 completed Not Available Not Available Not Available Glucometer Dex Diabetes System kit 05/29 completed Not Available Not Available Not Available ibuprofen 600 mg tablet TAKE 1 TABLET BY MOUTH EVERY 6 HOURS NEEDED FOR CRAMPING 09/26 completed Not Available Not Available Not Available methylpredn isolone 4 mg tablets in a dose pack FOLLOW PACKAGE DIRECTION S 04/22 completed Not Available Not Available Not Available albuterol sulfate HFA 90 mcg/actuati on aerosol inhaler INHALE 2 PUFFS BY MOUTH EVERY 6 HOURS NEEDED FOR WHEEZING active Not Available Not Available No t Available metoclopram porfirio 10 mg tablet TAKE 1 TABLET BY MOUTH EVERY 6 HOURS NEEDED 08/24 completed Not Available Not Available Not Available amoxicillin 875 mg-potassiu m clavulanate 125 mg tablet TAKE 1 TABLET BY MOUTH TWICE DAILY FOR 10 DAYS UNTIL COMPLETIO N. TAKE WITH FOOD. 04/22 completed Not Available Not Available Not Available Test Strips 05/29 completed Not Available Not Available Not Available Junel FE 1.5 (28) 1.5 mg-30 mcg (21)/75 mg (7) tablet Take 1 tablet every day by oral route. 10/26 completed Not Available Not Available Not Available lancets 05/29 completed Not Available Not Available Not Available 05/29 completed Not Available Not Available Not Available Blisovi Fe 07/05 (28) 1 mg-20 mcg (21)/75 mg (7) tablet TAKE 1 TABLET BY MOUTH EVERY DAY 04/22 completed Not Available Not Available Not Available OneTouch Ultra2 Meter USE TO TEST BLOOD SUGAR FOUR TIMES DAILY 09/29 completed Not Available Not Available Not Available OneTouch Delica Plus Lancet 33 gauge 05/29 completed Not Available Not Available Not Available OneTouch Delica Plus Lancet 30 gauge USE TO TEST BLOOD SUGAR FOUR TIMES DAILY 09/29 completed Not Available Not Available Not Available Vitals Date Recorded Body height Body mass index (BMI) Body weight Systolic blood pressure Diastolic blood pressure Provider Name and Address Organization Details Last Updated DateTime 09/22/2024 142.24 cm 43.9 kg/m2 13494.1 g 139 mm[Hg] 89 mm[Hg] Rae Holley [place] - [facility] 12:11:58 Date Recorded Body weight Body mass index (BMI) Body height Systolic blood pressure Diastolic blood pressure Provider Name and Address Organization Details Last Updated DateTime 09/22/2024 48163.10 452 g 43.9 kg/m2 142.24 cm 139 mm[Hg] 89 mm[Hg] Lisa Ashley [facility] 12:28:12 Date Recorded Body weight Systolic blood pressure Diastolic blood pressure Provider Name and Address Organization Details Last Updated DateTime 09/29/2024 26580.7852 1 g 124 mm[Hg] 86 mm[Hg] Rae Kishan [facility] 09/29/2024 12:31:40 Social History Question Answer Notes LastModified by Organizat ion Details LastModified Time Tobacco Smoking Status Current Some Day Smoker Lisa Ashley [facility], [facility] 07/14/2020 18:59:37 Do You Have An Advance Directive? No [email or web address] Information not available 04/12/2024 What Is Your Level Of Alcohol Consumption? None [email or web address] Information not available 03/01/2024 If You Are , What Was Your Level Of Alcohol Consumption Prior To ? Occasional [email or web address] Information not available 03/01/2024 How Many Years Have You Consumed Alcohol? 10 [email or web address] Information not available 07/14/2020 Are You Blind Or Do You Have Difficulty Seeing? No [email or web address] Information not available 03/01/2024 What Is Your Level Of Caffeine Consumption? Occasional [email or web address] Information not available 03/01/2024 In The 14 Days Before Symptom Onset, Have You Had Close Contact With A Laboratory-confir med COVID-19 While That Case Was Ill? No Information not available 11/12/2023 In The 14 Days Before Symptom Onset, Have You Had Close Contact With A Person Who Is Under Investigation For COVID-19 While That Person Was Ill? No Information not available 11/12/2023 Have You Been To An Area Known To Be High Risk For COVID-19? No Information not available 11/12/2023 Are You Deaf Or Do You Have Serious Difficulty Hearing? No [email or web address] Information not available 03/01/2024 What Type Of Diet Are You Following? REGULAR [email or web address] Information not available 04/12/2024 Which Illicit Or Recreational Drugs Have You Used? Yosi [email or web address] Information not available 07/14/2020 What Is The Highest Grade Or Level Of School You Have Completed Or The Highest Degree You Have Received? 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 No [email or web address] Information not available 03/01/2024 How Many Years Have You Used Illicit Or Recreational Drugs? 3 [email or web address] Information not available 07/14/2020 What Is Your Current Pack Years? 20-29packyears [email or web address] Information not available 07/14/2020 Have You Ever Been Counseled For Unhealthy Alcohol Use? No Information not available 07/14/2020 Do You Use Protection During Sex? No [email or web address] Information not available 04/12/2024 Do You Use Your Seat Belt Or Car Seat Routinely? No [email or web address] Information not available 03/01/2024 Do You Have Smoke And Carbon Monoxide Detectors In Your Home? Yes [email or web address] Information not available 03/01/2024 At What Age Did You Start Smoking Tobacco? 21 [email or web address] Information not available 07/14/2020 How Much Tobacco Do You Smoke? No [email or web address] Information not available 03/01/2024 Do You Feel Stressed (tense, Restless, Nervous, Or Anxious, Or Unable To Sleep At Night)? AE3123-3 [email or web address] Information not available 03/01/2024 Do You Use Any Illicit Or Recreational Drugs? No [email or web address] Information not available 03/01/2024 Do You Use Sunscreen Routinely? Yes [email or web address] Information not available 03/01/2024 Has Tobacco Cessation Counseling Been Provided? No [email or web address] Information not available 07/14/2020 How Many Years Have You Smoked Tobacco? 9 [email or web address] Information not available 07/14/2020 Have You Used IV Drugs? No [email or web address] Information not available 07/14/2020 Do You Or Have You Ever Used Any Other Forms Of Tobacco Or Nicotine? No [email or web address] Information not available 07/14/2020 Sex: Unknown Functional Status Question Answer Note LastModified by Organizat ion Details LastModified Time Do you have difficulty walking or climbing stairs? No [email or web address] Information not available 03/01/2024 Are you able to walk? YESWOREST [email or web address] Information not available 03/01/2024 Are you able to care for yourself? Yes [email or web address] Information not available 03/01/2024 Do you have difficulty dressing or bathing? No Information not available 03/01/2024 What is your exercise level? Occasional [email or web address] Information not available 07/14/2020 Mental Status None recorded. Family History Relationship Description Onset Age of this Age Resolved Age Notes LastModified by Organization Details LastModified Time Mother Malignant tumor of breast 44 44 [email or web address] Not available 10/13 18:43:10 Mother Malignant tumor of breast [email or web address] Not available 2023 15:23:24 Unspecified Relation Malignant tumor of breast 38 COUSIN [email or web address] Not available 2023 14:46:03 Unspecified Relation Malignant tumor of ovary 40 COUSIN [email or web address] Not available 2023 14:46:03 Unspecified Relation Malignant tumor of breast [email or web address] Not available 2023 15:23:24 Unspecified Relation Malignant tumor of ovary [email or web address] Not available 2023 15:23:24 Maternal Uncle Diabetes mellitus [email or web address] Not available 10/13 18:42:51 Maternal Uncle Hypertensive disorder [email or web address] Not available 10/13 18:42:58 Medical History Condition Response Allergies (Food, seasonal, environmental ) N Other N Breast Cancer N Drug/Latex Allergies/Reactions N Blood Transfusion N Lung Disease N Dermatologic Disorders N Defects or Inherited Disease N Breast Problem N Gestational Diabetes N Hematologic disorders N Anesthesia Complications N History of STI N Deep Vein Thrombosis N Polycystic ovary syndrome N Anxiety Disorder Y Autoimmune disease N Arthritis N Infertility N Polyps N Acid Reflux (GERD) N History of abnormal pap Y Cancer N Stroke N Varicosities N Neurologic/Epilepsy N Endometriosis N High Cholesterol N Headaches N Fibromyalgia N Kidney Disease N Heart Problems N Kidney or Bladder Problems N Thyroid Problems N GI Problems N Eating Disorder N Anemia N Art (IVF or FET) N Psychiatric Illness N Ovarian Cancer N Diabetes N Pulmonary (TB, Asthma) N Hepatitis/Liver Disease N Eczema N Urinary Tract Infection N Abuse/Domestic Violence N Asthma N Trauma/Violence N Depression/ depression Y Heart Disease N Pre-Eclampsia N Hypertension N Osteoporosis N Thrombophilias N Gynecological History Statement/Question Response Date of Last Mammogram Date of LMP 01/05/2024 N Was last menstrual period normal Y STIs/STDs N Date of Last Colonoscopy Abnormal Pap Yes On BCP's at Conception? N HPV Vaccine N Colposcopy Current Control Method Age at First Child 32 Are cycles usually normal Y Sexually Active? Y Menses Monthly Y Date of DEXA bone scan Age of first menstrual cycle 13 Date of Last Pap Smear 11/18/2023 Sexual Problems? N LMP Definite N Obstetrics History GPAL:G 3 P 1 0 1 1 Type Value Full Term 1 Spontaneous 1 Living 1 Total 3 Past Encounters Encounter ID Performer Location Encounter Start Date Encounter Closed Date Diagnosis/Indication Diagnosis SNOMED-CT Code Diagnosis ICD10 Code Diagnosis Note [id number] Winnie Manrique [facility] [address],[place] [address] 07/14/2020 16:40:25 07/20/2020 10:07:38 Abnormal uterine bleeding [id number] 9100 N93.9 [id number] Winnie Manrique [facility] [address],[place] [address] 07/18/2020 17:27:37 07/20/2020 10:14:18 Irregular periods 14473917 N92.6 Teratoma [id number] 9102 D48.9 awaiting records for comparison [id number] [facility] [address],[place] [address] 07/18/2020 16:48:16 07/20/2020 15:22:19 Irregular periods 16066735 N92.6 [id number] Agus Barillas MD [facility] [address],[place] [address] 09/13/2020 15:02:48 09/18/2020 13:28:22 Benign teratoma of ovary [id number] D27.9 this patient is a 31-year-ol d female with a 8 cm dermoid cyst on the left ovary. The patient also has a small dermoid of the right ovary. We discussed the possibilit y of surgical treatment of these conditions . The patient has no children. Fertility is an issue and ovarian preservati on is an issue. We have agreed to proceed with the surgery. We had a lengthy discussion about surgical technique and technical factors about getting an 8 cm dermoid out of the abdomen slap scopic Teressa. We talked about ovarian preservati on. We reviewed her ultrasound images together. We agreed that it may be difficult to delineate the ovary on the left due to the large size of the dermoid. It may be stretched very thin and there may be uncertaint y about where the most ovarian parenchyma is. In this situation we might resect the left ovary. If that is the case we will not treat the right ovary. If the ovary on the left can be partially salvage we will go for the treatment of the right ovary. This includes resection of the dermoid in the right ovary. We spent more than 40 minutes face-to-fa ce discussing multiple complex issues surroundin g this difficult case. This case has an unknown prognosis. Additional precaution almita measures were taken to minimize potential exposure to the Covid-19 virus during this patient s visit, including available hand atm manager upon arrive, temperatur e check and being asked a series of screening questions. All staff wore face coverings during this encounter, as well as provided additional cleaning and sanitizing of all surfaces, including countertop s, pens, chairs, door handles, light switches, etc, prior to and following the patient s visit.o [id number] Tutu Miranda [facility] [address] [address] 10/11/2020 15:55:07 10/11/2020 22:00:35 [id number] [facility] [address],[facility] [place] [address] 10/11/2020 15:55:36 10/11/2020 21:57:20 Amenorrhea 72847275 N91.2 Gynecologi c examination 21211859 Z11.3 [id number] Shelly Matthew [facility] [address],[facility] [place] [address] 11/15/2020 16:23:57 11/15/2020 21:34:49 screening [id number] Z36.82 [id number] Agus Barillas MD [facility] [address],[place] [address] 11/15/2020 16:26:08 11/15/2020 21:35:03 Nausea and vomiting 01042030 R11.2 Routine an tenatal care [id number] Z34.90 [id number] [facility] [address],[place] [address] 12/13/2020 16:13:18 12/13/2020 17:09:50 Previous operation to cervix affecting 20281940 O34.42 Z3A.16 [id number] Agus Barillas MD [place] [address],[place] [address] 12/13/2020 16:13:52 12/13/2020 17:55:03 Routine care 043253410 Z34.90 [id number] [facility] [address],[place] [address] 01/11/2021 15:02:58 01/11/2021 16:31:16 screening 867462213 Z36.3 [id number] Agus Barillas MD [facility] [address],[place] [address] 01/11/2021 15:03:25 01/11/2021 17:04:36 Routine care [id number] Z34.90 [id number] Stanislaw Calderon [facility] [address],[place] [address] 02/06/2021 11:27:12 02/06/2021 13:27:39 screening [id number] Z36.2 [id number] Radha Parikh MD [facility] [address],[place] [address] 02/06/2021 11:27:12 02/06/2021 13:27:39 Routine care 628086731 Z34.02 [id number] Natalya Mathur [facility] [address],[place] [address] 03/09/2021 13:46:57 03/09/2021 15:40:53 Polyhydramnios 79356261 O40.3XX0 Z3A.28 [id number] Radha Parikh MD [facility] [address],[place] [address] 03/09/2021 14:32:34 03/10/2021 13:02:35 Routine care [id number] Z34.02 [id number] Radha Parikh MD [facility] [address],[place] [address] 03/20/2021 15:36:51 03/20/2021 16:31:33 Gestational diabetes mellitus 78211506 O24.410 [id number] Liz Roberts [facility] [address],[place] [address] 03/22/2021 11:00:01 03/22/2021 12:25:45 Gestational diabetes mellitus class A1 48350455 O24.410 Pt here for diet teaching. Went over ideal ranges for FBS and pp BS. Went over carb counting and carb ranges for each meal/snack . Gave ideas for foods to eat for meals/snac ks. Discussed drink options and to avoid soda and juice. Pt was drinking almond milk, but it was high in carbs so she switched to skim milk. Told pt to limit this as well. Told pt she can go online to ADA for meal options or to look up low carb meal recipes online for ideas as well. Pt picked up glucometer yesterday and a few of her levels were normal. Pt had a hard time checking BS yesterday because she didn't have enough sample the glucometer says. Gave recommenda tions to help with this to get more of a sample. Told pt to continue checking BS QID and adjusting diet to follow low carb diet to try to keep BS within normal range. Pt aware if sugars aren't controlled by diet we would discuss starting insulin. Pt states she is terrified of needles and is having a hard enough time with lancets. Told pt we could always discuss Metformin instead if needed. Went over NST schedule with pt and importance of keeping these appts and checking BS for her and baby's health. Pts questions were answered and [email or web address] [id number] [facility] [address],[place] [address] 04/03/2021 11:30:28 04/03/2021 12:22:05 Gestational diabetes mellitus class A1 20061509 O24.410 Pt here for diet teaching. Went over ideal ranges for FBS and pp BS. Went over carb counting and carb ranges for each meal/snack . Gave ideas for foods to eat for meals/snac ks. Discussed drink options and to avoid soda and juice. Pt was drinking almond milk, but it was high in carbs so she switched to skim milk. Told pt to limit this as well. Told pt she can go online to ADA for meal options or to look up low carb meal recipes online for ideas as well. Pt picked up glucometer yesterday and a few of her levels were normal. Pt had a hard time checking BS yesterday because she didn't have enough sample the glucometer says. Gave recommenda tions to help with this to get more of a sample. Told pt to continue checking BS QID and adjusting diet to follow low carb diet to try to keep BS within normal range. Pt aware if sugars aren't controlled by diet we would discuss starting insulin. Pt states she is terrified of needles and is having a hard enough time with lancets. Told pt we could always discuss Metformin instead if needed. Went over NST schedule with pt and importance of keeping these appts and checking BS for her and baby's health. Pts questions were answered 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 [address],[place] [address] 04/06/2021 12:21:57 04/06/2021 13:07:32 Gestational diabetes mellitus class A1 85972218 O24.[id number] [facility] [address] [address] 04/10/2021 15:50:07 04/10/2021 17:07:34 Gestational diabetes mellitus class A1 25240584 O24.410 Pt here for diet teaching. Went over ideal ranges for FBS and pp BS. Went over carb counting and carb ranges for each meal/snack . Gave ideas for foods to eat for meals/snac ks. Discussed drink options and to avoid soda and juice. Pt was drinking almond milk, but it was high in carbs so she switched to skim milk. Told pt to limit this as well. Told pt she can go online to ADA for meal options or to look up low carb meal recipes online for ideas as well. Pt picked up glucometer yesterday and a few of her levels were normal. Pt had a hard time checking BS yesterday because she didn't have enough sample the glucometer says. Gave recommenda tions to help with this to get more of a sample. Told pt to continue checking BS QID and adjusting diet to follow low carb diet to try to keep BS within normal range. Pt aware if sugars aren't controlled by diet we would discuss starting insulin. Pt states she is terrified of needles and is having a hard enough time with lancets. Told pt we could always discuss Metformin instead if needed. Went over NST schedule with pt and importance of keeping these appts and checking BS for her and baby's health. Pts questions were answered [place] [id number] Natalya Mathur [facility] [address] [address] 04/10/2021 15:50:20 04/10/2021 17:17:48 Gestational diabetes mellitus class A1 13266812 O24.410 O36.8330 Z3A.33 Pt here for diet teaching. Went over ideal ranges for FBS and pp BS. Went over carb counting and carb ranges for each meal/snack . Gave ideas for foods to eat for meals/snac ks. Discussed drink options and to avoid soda and juice. Pt was drinking almond milk, but it was high in carbs so she switched to skim milk. Told pt to limit this as well. Told pt she can go online to ADA for meal options or to look up low carb meal recipes online for ideas as well. Pt picked up glucometer yesterday and a few of her levels were normal. Pt had a hard time checking BS yesterday because she didn't have enough sample the glucometer says. Gave recommenda tions to help with this to get more of a sample. Told pt to continue checking BS QID and adjusting diet to follow low carb diet to try to keep BS within normal range. Pt aware if sugars aren't controlled by diet we would discuss starting insulin. Pt states she is terrified of needles and is having a hard enough time with lancets. Told pt we could always discuss Metformin instead if needed. Went over NST schedule with pt and importance of keeping these appts and checking BS for her and baby's health. Pts questions were answered and pt verbalized understand ing. GIANFRANCO hubbard [id number] Radha Parikh MD [facility] [address],[place] [address] 04/10/2021 15:50:30 04/10/2021 17:54:17 Benign teratoma of ovary [id number] D27.9 Gestationa l diabetes mellitus 82248957 O24.410 Pre-surger y evaluation 022350396 Z01.818 [id number] M Burke [facility] [address],[place] [address] 04/13/2021 11:23:50 04/13/2021 12:42:18 Gestational diabetes mellitus class A1 80082129 O24.410 [id number] Gayle Granado [facility] [address],[place] [address] 04/17/2021 10:25:54 04/17/2021 11:31:36 Gestational diabetes mellitus class A1 16438910 O24.410 O36.8330 Z3A.33 Pt here for diet teaching. Went over ideal ranges for FBS and pp BS. Went over carb counting and carb ranges for each meal/snack . Gave ideas for foods to eat for meals/snac ks. Discussed drink options and to avoid soda and juice. Pt was drinking almond milk, but it was high in carbs so she switched to skim milk. Told pt to limit this as well. Told pt she can go online to ADA for meal options or to look up low carb meal recipes online for ideas as well. Pt picked up glucometer yesterday and a few of her levels were normal. Pt had a hard time checking BS yesterday because she didn't have enough sample the glucometer says. Gave recommenda tions to help with this to get more of a sample. Told pt to continue checking BS QID and adjusting diet to follow low carb diet to try to keep BS within normal range. Pt aware if sugars aren't controlled by diet we would discuss starting insulin. Pt states she is terrified of needles and is having a hard enough time with lancets. Told pt we could always discuss Metformin instead if needed. Went over NST schedule with pt and importance of keeping these appts and checking BS for her and baby's health. Pts questions were answered [place] [id number] Radha Parikh MD [facility] [address],[place] [address] 04/17/2021 10:26:05 04/17/2021 11:46:02 Breech presentation [id number] O32.1XX[address] Ben[address] atoma of ovary 841724501 D27.9 Gestationa l diabetes mellitus class A1 [id number] O24.410 O36.8330 Z3A.[id number] [facility] [address],[place] [address] 04/20/2021 10:19:35 04/20/2021 11:35:30 Gestational diabetes mellitus class A1 [id number] O24.[id number] [facility] [address],[place] [address] 04/24/2021 10:24:36 04/24/2021 11:20:21 Gestational diabetes mellitus class A1 93117436 O24.410 [id number] Radha Parikh MD [place] [address],[place] [address] 04/24/2021 10:24:52 04/24/2021 13:31:26 Benign teratoma of ovary 050442168 D27.9 Gestationa l diabetes mellitus 00078452 O24.410 Routine an tenatal care 241172319 Z34.02 [id number] Liz Roberts [facility] [address],[place] [address] 04/27/2021 10:21:13 04/27/2021 11:17:54 Gestational diabetes mellitus class A1 [id number] O24.[id number] [facility] [address],[place] [address] 05/01/2021 10:22:16 05/01/2021 11:22:30 Gestational diabetes mellitus class A1 11646435 O24.410 [id number] Radha Parikh MD [place] [place] [address],[place] [address] 05/01/2021 10:22:33 05/01/2021 12:14:12 Gestational diabetes mellitus 84885666 O24.[address] atoma of ovary 238023948 D27.9 Migraine 98964304 G43.[id number] [facility] [address],[place] [address] 05/04/2021 11:18:44 05/04/2021 11:56:06 Gestational diabetes mellitus class A1 86613156 O24.[id number] [facility] [address],[place] [address] 05/08/2021 09:19:17 05/08/2021 11:01:16 Gestational diabetes mellitus class A1 82328266 O24.410 [id number] [facility] [address],[place] [address] 05/08/2021 09:19:50 05/08/2021 11:20:35 Gestational diabetes mellitus class A1 00523227 O24.410 Z3A.37 O34.80 [id number] Radha Parikh MD [place] [place] [address],[place] [address] 05/08/2021 09:20:03 05/08/2021 11:05:03 Benign teratoma of ovary 103607110 D27.9 Gestationa l diabetes mellitus 60212792 O24.410 Polyhydramnios 12745300 O40.3XX0 Z3A.28 [id number] Radha Parikh MD [facility] [address],[place] [address] 05/15/2021 10:25:48 05/15/2021 12:32:32 Gestational diabetes mellitus 32457805 O24.[address] atoma of ovary 875768767 D27.9 Routine an tenatal care 430252130 Z34.02 [id number] M Burke [facility] [address],[place] [address] 05/15/2021 10:26:22 05/15/2021 11:48:41 Gestational diabetes mellitus class A1 78227975 O24.410 [id number] Liz Roberts [facility] [address],[place] [address] 05/18/2021 10:02:44 05/18/2021 11:23:39 Gestational diabetes mellitus class A1 75230349 O24.410 [id number] Radha Parikh MD [facility] [address],[place] [address] 1 05/22/2021 12:26:22 05/22/2021 12:26:59 [id number] Radha Parikh MD [facility] [address],[place] [address] 05/29/2021 14:26:29 05/30/2021 17:01:22 Postoperative visit 225393575 Z09 [id number] Radha Parikh MD [facility] [address],[place] [address] 06/26/2021 12:26:53 06/26/2021 13:50:21 care 551247730 Z39.2 Gestationa l diabetes mellitus class A1 33768093 O24.410 [id number] Radha Parikh MD [facility] [address],[place] [address] 09/26/2021 11:20:46 09/26/2021 14:00:01 Gynecologic examination 88513944 Z01.419 Body mass index 40+ - severely obese 857541026 Z68.41 Initial pr escription of oral contraception 944360312 Z30.011 Type 2 naresh betes mellitus 10387027 E11.9 [id number] Radha Parikh MD [facility] [place] [address],[place] [address] 09/30/2022 14:26:09 10/01/2022 15:44:13 Family history of malignant neoplasm of breast in first degree relative 427001682 Z80.3 Gynecologi c examination 03618339 Z01.419 Z11.51 Surveillan ce of oral contraception 538297564 Z30.41 depression 58 757673 F53.0 [id number] Radha Parikh MD [place] [place] [address],[place] [address] 04/22/2022 16:45:29 04/23/2022 16:08:28 Break-through bleeding 80116639 N92.1 depression 58 855797 F53.0 [id number] Radha Parikh MD [facility] [address],[place] [address] 06/24/2022 15:36:53 06/25/2022 15:29:19 depression 02227290 F53.0 Surveillan ce of oral contraception 366899950 Z30.41 [id number] ALONZO Peters [facility] [address],[place] [address] 11/18/2023 14:06:49 11/18/2023 16:51:11 Gynecologic examination 17164457 Z01.419 Z11.51 WWEBC - declineden couraged PNV dailypap updateddec lined STI screenenco uraged annual exam with PCPRTC in 1 yr or sooner if needed It is strongly advised to have an annual flu shot and up can obtain at most pharmacies . If you have not had a TDap shot in the last 10 years you should obtain one as well. Discussed with patient & provided with informatio n regarding Gardisil vaccine to prevent the 4 strains for HPV that cause cervical cancer if under age 26. Encourage safe sexual practices, to use condoms and limit partners if not already in a monogamous relationsh ip. Do monthly self breast exams. BRCA testing is now available for patients with strong genetic history of female cancer. If interested contact the office. Engage in regular exercise. Avoid tobacco and illicit drugs. This lifestyle behavior pattern will lead to less health conditions and longer life span. If BMI greater than 25 dietary consult advised. Patient received above instructio ns, and questions have been answered. If you have any questions please call or respond to this email. Patient was made aware of the patient portal and may obtain a paper copy of today's plan if desired. Agus Barillas MD [facility] [address],[place] [address] 03/01/2024 10:56:27 03/01/2024 11:32:29 screening 559306805 Z36.87 Z3A.01 Winnie Manrique [facility] [address],[place] [address] 03/01/2024 10:56:54 03/01/2024 12:46:22 Amenorrhea 45524489 N91.2 reviewed office, precaution nickd c/s for dermoid would like rpthx GDMhx abnl pap, pap up to date and negativean xiety/depp ression controlled with venlafaxin e ERf/u new ob and first lookplan nipt and labs at that time Venereal d isease screening 479392507 Z11.3 [id number] [facility] [address],[place] [address] 04/12/2024 15:10:40 04/12/2024 16:13:37 screening 833996640 Z36.82 Z3A.12 [id number] FANTA DEY MD [facility] [address],[place] [address] 04/12/2024 15:11:02 04/12/2024 17:11:37 Routine care 317706878 Z34.91 screening 2437 69936 Z36.0 Genetic in vestigation procedure 23732255 Z31.430 [id number] FANTA DEY MD [place] [place] [address],[place] [address] 05/10/2024 14:45:54 05/10/2024 15:56:29 Sterilization requested 567712448 Z30.2 - s/p LSO at last c section- considerin g R salpingect etta for permanent sterilizat ion at time of delivery; will sign papers at 32 weeks Uterine sc ar from previous surgery affecting 74749828 O34.29 - desires RCS Gestation period, 16 weeks 37435072 Z3A.16 - [facility] [id number] [facility] [address],[place] [address] 06/10/2024 11:57:58 06/10/2024 13:24:24 screening for malformation 136897447 Z36.3 Z3A.21 [id number] FANTA DEY MD [place] [address],[place] [address] 06/11/2024 11:53:01 06/11/2024 12:49:51 Past history of section 544299970 Z98.890 - desires TOLAC- r/b/a discussed with patient including <1% risk of uterine rupture; patient voices understand ing Body mass index 40+ - severely obese 938388853 Z68.41 - testing at 34 weeks Gestation period, 21 weeks 34815323 Z3A.21 - continue PNV [id number] [facility] [address],[place] [address] 07/13/2024 14:45:22 07/13/2024 15:47:33 screening 330077302 Z36.2 Z3A.25 [id number] FANTA DEY MD [facility] [address],[place] [address] 07/14/2024 15:40:31 07/14/2024 16:38:09 Breech presentation 2651131 O32.1XX9 - continue to monitor presentati on Uterine sc ar from previous surgery affecting 05697640 O34.29 - unsure of delivery method- r/b of RCS vs TOLAC discussed including risk of uterine rupture Gestation period, 25 weeks 06509814 Z3A.25 [id number] [facility] [address],[place] [address] 08/11/2024 11:26:12 08/11/2024 12:27:30 Breech presentation 0772799 O32.1XX0 O36.5930 Z3A.29 [id number] Winnie Manrique [facility] [address],[place] [address] 08/11/2024 11:26:49 08/11/2024 14:38:29 Gestation period, 29 weeks 34983405 Z3A.29 Ahmet cardoso ch presentation 20739097 O32.1XX9 [id number] [facility] [address],[place] [address] 08/25/2024 14:39:33 08/25/2024 15:30:12 Polyhydramnios 39522614 O40.3XX0 Z3A.31 [id number] [facility] [address],[place] [address] 08/25/2024 14:39:46 08/25/2024 16:06:46 Polyhydramnios 86310471 O40.3XX0 [id number] Rae Holley [facility] [place] [address],[place] [address] 09/08/2024 11:25:14 09/09/2024 03:54:10 Gestational diabetes mellitus 67717951 O24.419 [id number] [facility] [address],[place] [address] 09/08/2024 11:25:30 09/08/2024 13:39:07 Gestational diabetes mellitus [id number] O24.410 O40.3XX0 Z3A.33 [id number] Winnie Manrique [facility] [address],[place] [address] 09/08/2024 11:25:42 09/08/2024 13:51:50 Gestation period, 33 weeks [id number] Z3A.33 Gestationa l diabetes mellitus [id number] O24.419 [id number] [facility] [address],[place] [address] 09/15/2024 11:19:40 09/15/2024 11:53:14 Gestational diabetes mellitus [id number] O24.410 O99.213 O40.3XX0 Z3A.34 [id number] Lisa Ashley [place] [address],[place] [address] 09/15/2024 11:19:55 09/16/2024 10:00:05 Maternal obesity complicating , childbirth and the puerperium, antepartum [id number] 07 O99.213 [id number] [facility] [address],[place] [address] 09/15/2024 11:20:28 09/15/2024 12:38:11 Gestation period, 34 weeks [id number] Z3A.34 Gestationa l diabetes mellitus [id number] O24.419 [id number] Rae Kishan [place] [address],[place] [address] 09/22/2024 11:14:04 09/22/2024 12:30:32 Gestational diabetes mellitus [id number] O24.419 [id number] [facility] [address],[place] [address] 09/22/2024 11:14:37 09/22/2024 13:27:57 Gestation period, 35 weeks 53529677 Z3A.35 [id number] Debora Villalta [place] [address],[place] [address] 09/22/2024 11:59:35 09/22/2024 12:23:36 Gestational diabetes mellitus [id number] O24.410 O99.213 O40.3XX0 Z3A.35 [id number] Shelly Matthew [place] [address],[place] [address] 09/29/2024 11:18:48 09/29/2024 12:01:02 Gestational diabetes mellitus [id number] O24.410 O40.3XX0 O99.213 Z3A.36 [id number] Agus Barillas MD [place] [address],[place] [address] 09/29/2024 11:19:07 09/29/2024 12:59:41 Routine care [id number] Z34.90 Health Concerns Section Related Observation LastModified by Organization Detai ls LastModified Time None Recorded Concern Status LastModified by Organization Details LastModified Time None Recorded Advance Directives Directive N: Payers Encounter Date Sequence Insurance Name Policy Number Policy Mehta Covered Member ID Mehta Member ID Guarantor Name 09/22/2024 1 [facility] (MEDICAID HMO) [id number] Tejal Vantrease [id number] Tejal Vantrease 09/22/2024 1 [facility] (MEDICAID HMO) [id number] Tejal Vantrease [id number] Tejal Vantrease 09/29/2024 1 [facility] (MEDICAID HMO) [id number] Tejal Vantrease [id number] Tejal Vantrease 09/29/2024 1 [facility] (MEDICAID HMO) [id number] 0003 Tejal Vantrease [id number] Tejal Vantrease OBGyn Episode Ob Episode Information Episode Created Date Number of Fetuses Patient Bloodtype Patient rh Status Prepregnancy Weight lbs Domestic Partner Domestic Partner Phone Father Name Research Technician Status 11/16/19 21 1 B Positive 144 CLOSED Fetus Data First Name Last Name Admitted to NICU Weight (g) Sex Living Outcome Pediatric Complications Fetus ID Race Codes Race Delivery Type Jo Ann 2863.29 95 F true Full Term meconium [id number] Primary Problems Problem Notes borderline BPsDunbar pt Problem Name Start Date End Date Resolution Snomed Code Not e Benign teratoma of ovary 712151219 8 cm - stable. Schd for left salpingo-oopherec yuridia with c/s 05/21 Dysplasia of cervix [id number] Conization of the cervix-check in 16 weeks Low lying placenta 01/11/2021 02/06/2021 [id number] 1.8cm. Resolved 02/06/21. Gestational diabetes mellitus 29785595 BS QID, ante testing tues/fri Breech presentation [id number] Has c/s schd 05/21 Polyhydramnios [id number] 27 on 05/08 Gastroesophageal reflux disease MEDICATION [id number] PEPCID/ZANTAC Mina Calculation Initial Mina Date Initial Exam Date Initial Exam Provider Initial Ultrasound Date Last Menstrual Period Date Ultra Sound Weeks Gestation 05/28/2021 11/15/2020 10/11/2020 08/21/2020 7 Eighteen To Twenty Week Mina Update Ultra Sound Date Fundal Height At Umbil Quickening Date Ultra Sound Latest Weeks Gestation Final Mina Confirmed By Final Mina Confirmed Date Final Mina Date Ultra Sound Latest Days Gestation 0 [email or web address] 11/15/2020 05/28/20 21 0 Pre- Flowsheet Flowsheet Date 11/15/2020 Davey Score Blood Edema Fundus Height Fundus Units Glucose Ketones Leukocytes Nitrite Labor Signs Protein Cervic Dilation Cervic Effacement Cervic Station 13 Type Weight in lbs Pre/Post Dialysis Refused Weight 152.869378070961 BP Diastolic BP Location Tested BP Systolic BP Type 88 L arm 131 sitting Fetus Heart Rate Present A 155 Fetus Movement Comments This patient is a 30-year-ol d 2 para 0 at 12 weeks gestation who presents for initial care. She reports nausea. She was prescribed Zofran. She has history of a cervical conization. We will check early cervical length. To do serial cervical lengths thereafter. She has an 8 cm benign teratoma of the ovary. To follow periodically with ultrasound. This begin routine care otherwise. Flowsheet Date 12/13/2020 Davey Score Blood Edema Fundus Height Fundus Units Glucose Ketones Leukocytes Nitrite Labor Signs Protein Cervic Dilation Cervic Effacement Cervic Station Type Weight in lbs Pre/Post Dialysis Refused BP Diastolic BP Location Tested BP Systolic BP Type Fetus Heart Rate Present Fetus Movement Comments Flowsheet Date 12/13/2020 Davey Score Blood Edema Fundus Height Fundus Units Glucose Ketones Leukocytes Nitrite Labor Signs Protein Cervic Dilation Cervic Effacement Cervic Station 16 Type Weight in lbs Pre/Post Dialysis Refused Weight 159.233437713135 BP Diastolic BP Location Tested BP Systolic BP Type 82 R arm 120 sitting Fetus Heart Rate Present A 150 Fetus Movement A No Comments Discussed choroid plexus cys t with the patient, discussed alpha protein test discussed cervical length 4.1 Flowsheet Date 01/11/2021 Davey Score Blood Edema Fundus Height Fundus Units Glucose Ketones Leukocytes Nitrite Labor Signs Protein Cervic Dilation Cervic Effacement Cervic Station Type Weight in lbs Pre/Post Dialysis Refused BP Diastolic BP Location Tested BP Systolic BP Type Fetus Heart Rate Present Fetus Movement Comments Flowsheet Date 01/11/2021 Davey Score Blood Edema Fundus Height Fundus Units Glucose Ketones Leukocytes Nitrite Labor Signs Protein Cervic Dilation Cervic Effacement Cervic Station 20 trace Type Weight in lbs Pre/Post Dialysis Refused Weight 167.416628115479 BP Diastolic BP Location Tested BP Systolic BP Type 74 R arm 119 sitting Fetus Heart Rate Present A 145 Fetus Movement A Yes Comments Flowsheet Date 02/06/2021 Davey Score Blood Edema Fundus Height Fundus Units Glucose Ketones Leukocytes Nitrite Labor Signs Protein Cervic Dilation Cervic Effacement Cervic Station Type Weight in lbs Pre/Post Dialysis Refused BP Diastolic BP Location Tested BP Systolic BP Type Fetus Heart Rate Present Fetus Movement Comments Flowsheet Date 02/06/2021 Davey Score Blood Edema Fundus Height Fundus Units Glucose Ketones Leukocytes Nitrite Labor Signs Protein Cervic Dilation Cervic Effacement Cervic Station trace Type Weight in lbs Pre/Post Dialysis Refused Weight 175.697018682540 BP Diastolic BP Location Tested BP Systolic BP Type 81 119 Fetus Heart Rate Present A 140 Fetus Movement A Yes Comments Doing well except very nervo us about covid risks in , tearful. We discussed recommendation for vaccine in , discussed no safety issues have been noted in but there are significant covid risks in . She plans to get the vaccine bita. US today anatomy now complete and wnl. DVP 7cm, will repeat next visit as borderline high. GCT next visit. LL placenta resolved. Discuss Tdap next visit. Flowsheet Date 03/09/2021 Davey Score Blood Edema Fundus Height Fundus Units Glucose Ketones Leukocytes Nitrite Labor Signs Protein Cervic Dilation Cervic Effacement Cervic Station Type Weight in lbs Pre/Post Dialysis Refused BP Diastolic BP Location Tested BP Systolic BP Type Fetus Heart Rate Present Fetus Movement Comments Flowsheet Date 03/09/2021 Davey Score Blood Edema Fundus Height Fundus Units Glucose Ketones Leukocytes Nitrite Labor Signs Protein Cervic Dilation Cervic Effacement Cervic Station none 28 Type Weight in lbs Pre/Post Dialysis Refused Weight 180.362612386629 BP Diastolic BP Location Tested BP Systolic BP Type 80 140 72 132 Fetus Heart Rate Present A 150 Fetus Movement A Yes Comments Doing well. GCT today. Got C OVID vaccines. Discussed and encouraged Tdap and flu shot. GERD bad- giving her nausea- will start pepcid or zantac. US today EFW 28%, no poly. Flowsheet Date 03/20/2021 Davey Score Blood Edema Fundus Height Fundus Units Glucose Ketones Leukocytes Nitrite Labor Signs Protein Cervic Dilation Cervic Effacement Cervic Station neg trace 32 trace Type Weight in lbs Pre/Post Dialysis Refused Weight 180.469706078204 BP Diastolic BP Location Tested BP Systolic BP Type 85 123 Fetus Heart Rate Present A 160 Fetus Movement A Yes Comments Doing ok, just diagnosed wit h GDM, diet teaching in 2 days Briefly showed how to use meter. Will do Tdap and flu shot this week. Still having some N/V, reglan helps but zofran does not. Is gaining plenty of weight. Discuss plan with dermoid next visit. Flowsheet Date 03/22/2021 Davey Score Blood Edema Fundus Height Fundus Units Glucose Ketones Leukocytes Nitrite Labor Signs Protein Cervic Dilation Cervic Effacement Cervic Station Type Weight in lbs Pre/Post Dialysis Refused BP Diastolic BP Location Tested BP Systolic BP Type Fetus Heart Rate Present Fetus Movement Comments Flowsheet Date 04/03/2021 Davey Score Blood Edema Fundus Height Fundus Units Glucose Ketones Leukocytes Nitrite Labor Signs Protein Cervic Dilation Cervic Effacement Cervic Station Type Weight in lbs Pre/Post Dialysis Refused BP Diastolic BP Location Tested BP Systolic BP Type Fetus Heart Rate Present Fetus Movement Comments Flowsheet Date 04/03/2021 Davey Score Blood Edema Fundus Height Fundus Units Glucose Ketones Leukocytes Nitrite Labor Signs Protein Cervic Dilation Cervic Effacement Cervic Station none 34 Type Weight in lbs Pre/Post Dialysis Refused Weight 180.682099033216 BP Diastolic BP Location Tested BP Systolic BP Type 79 113 Fetus Heart Rate Present A 135 Fetus Movement A Yes Comments Doing very well overall. Sug ars perfect except one. NST reactive. Tdap and flu shots done. Discussed left 8cm dermoid from prior to - if needs CS may be able to remove at that time, though discussed increased risk of bleeding. Discussed may lose that ovary given large size of dermoid. Right ovary also had possible 1cm dermoid- will eval when doing left, but this is very small and may be hard to identify. If has vaginal delivery, will plan LSC after 6 weeks pp. Flowsheet Date 04/06/2021 Davey Score Blood Edema Fundus Height Fundus Units Glucose Ketones Leukocytes Nitrite Labor Signs Protein Cervic Dilation Cervic Effacement Cervic Station Type Weight in lbs Pre/Post Dialysis Refused BP Diastolic BP Location Tested BP Systolic BP Type 77 R arm 117 sitting Fetus Heart Rate Present Fetus Movement Comments Flowsheet Date 04/10/2021 Davey Score Blood Edema Fundus Height Fundus Units Glucose Ketones Leukocytes Nitrite Labor Signs Protein Cervic Dilation Cervic Effacement Cervic Station Type Weight in lbs Pre/Post Dialysis Refused BP Diastolic BP Location Tested BP Systolic BP Type Fetus Heart Rate Present Fetus Movement Comments Flowsheet Date 04/10/2021 Davey Score Blood Edema Fundus Height Fundus Units Glucose Ketones Leukocytes Nitrite Labor Signs Protein Cervic Dilation Cervic Effacement Cervic Station Type Weight in lbs Pre/Post Dialysis Refused BP Diastolic BP Location Tested BP Systolic BP Type Fetus Heart Rate Present Fetus Movement Comments Flowsheet Date 04/10/2021 Davey Score Blood Edema Fundus Height Fundus Units Glucose Ketones Leukocytes Nitrite Labor Signs Protein Cervic Dilation Cervic Effacement Cervic Station neg none trace Type Weight in lbs Pre/Post Dialysis Refused Weight 182.783612708555 BP Diastolic BP Location Tested BP Systolic BP Type 69 135 Fetus Heart Rate Present A 130 Fetus Movement A Yes Comments Doing well. US 41%, breech. Given large dermoid, I do not recommend ECV attempt. Pt is ok with CS if baby stays breech, especially due to short stature and most women in family with CS anyways. would like LSO at time- given risk of bleeding and large size of cyst, wants LSO and not attempted cystectomy. Will eval right ovary at time. We discussed RBA of both CS and surgical removal of dermoid. Questions answered. BS perfect. Will preregister. Flowsheet Date 04/13/2021 Davey Score Blood Edema Fundus Height Fundus Units Glucose Ketones Leukocytes Nitrite Labor Signs Protein Cervic Dilation Cervic Effacement Cervic Station Type Weight in lbs Pre/Post Dialysis Refused BP Diastolic BP Location Tested BP Systolic BP Type 90 R arm 130 sitting 84 R arm 118 sitting Fetus Heart Rate Present Fetus Movement Comments Flowsheet Date 04/17/2021 Davey Score Blood Edema Fundus Height Fundus Units Glucose Ketones Leukocytes Nitrite Labor Signs Protein Cervic Dilation Cervic Effacement Cervic Station Type Weight in lbs Pre/Post Dialysis Refused Weight 181.665882712849 BP Diastolic BP Location Tested BP Systolic BP Type 89 129 Fetus Heart Rate Present Fetus Movement Comments Flowsheet Date 04/17/2021 Davye Score Blood Edema Fundus Height Fundus Units Glucose Ketones Leukocytes Nitrite Labor Signs Protein Cervic Dilation Cervic Effacement Cervic Station neg none 36 trace Type Weight in lbs Pre/Post Dialysis Refused Weight 181.810797772852 BP Diastolic BP Location Tested BP Systolic BP Type 89 129 Fetus Heart Rate Present A 140 Fetus Movement A Yes Comments Doing well. Sugars perfect. Can tell baby is still breech. She has decided she wants primary CS even if baby vertex because she is short, most women in her family need CS, and because then the dermoid can be removed at same time. Will schedule CS and LSO for 39 weeks. Flowsheet Date 04/20/2021 Davey Score Blood Edema Fundus Height Fundus Units Glucose Ketones Leukocytes Nitrite Labor Signs Protein Cervic Dilation Cervic Effacement Cervic Station Type Weight in lbs Pre/Post Dialysis Refused BP Diastolic BP Location Tested BP Systolic BP Type 86 R arm 142 sitting 89 R arm 123 sitting Fetus Heart Rate Present Fetus Movement Comments Flowsheet Date 04/24/2021 Davey Score Blood Edema Fundus Height Fundus Units Glucose Ketones Leukocytes Nitrite Labor Signs Protein Cervic Dilation Cervic Effacement Cervic Station Type Weight in lbs Pre/Post Dialysis Refused BP Diastolic BP Location Tested BP Systolic BP Type Fetus Heart Rate Present Fetus Movement Comments Flowsheet Date 04/24/2021 Davey Score Blood Edema Fundus Height Fundus Units Glucose Ketones Leukocytes Nitrite Labor Signs Protein Cervic Dilation Cervic Effacement Cervic Station neg none trace Type Weight in lbs Pre/Post Dialysis Refused Weight 179.447544139553 BP Diastolic BP Location Tested BP Systolic BP Type 99 137 88 125 Fetus Heart Rate Present A 120 Fetus Movement A Yes Comments Doing well. Great FM. BS per fect. Some borderline BPs, but repeats wnl. Will monitor. Denies DARBY/BV/EP. Registerine Friday. GBS next, discussed. CS and LSO scheduled for 05/21. Flowsheet Date 04/27/2021 Davey Score Blood Edema Fundus Height Fundus Units Glucose Ketones Leukocytes Nitrite Labor Signs Protein Cervic Dilation Cervic Effacement Cervic Station Type Weight in lbs Pre/Post Dialysis Refused BP Diastolic BP Location Tested BP Systolic BP Type 86 124 Fetus Heart Rate Present Fetus Movement Comments Flowsheet Date 05/01/2021 Davey Score Blood Edema Fundus Height Fundus Units Glucose Ketones Leukocytes Nitrite Labor Signs Protein Cervic Dilation Cervic Effacement Cervic Station Type Weight in lbs Pre/Post Dialysis Refused BP Diastolic BP Location Tested BP Systolic BP Type Fetus Heart Rate Present Fetus Movement Comments Flowsheet Date 05/01/2021 Davey Score Blood Edema Fundus Height Fundus Units Glucose Ketones Leukocytes Nitrite Labor Signs Protein Cervic Dilation Cervic Effacement Cervic Station neg none trace 1cm 40% Type Weight in lbs Pre/Post Dialysis Refused Weight 180.832222518554 BP Diastolic BP Location Tested BP Systolic BP Type 83 120 Fetus Heart Rate Present A 130 Fetus Movement A Yes Comments Doing well except more heada ches- seem like migraines, left sided with scotomata. Resolve with tylenol and nap. If not resolving, will call. not related to sugar highs or lows- sugars have been perfect. GBS done and discussed. baby still feels breech. CS and LSO 05/21. Flowsheet Date 05/04/2021 Davey Score Blood Edema Fundus Height Fundus Units Glucose Ketones Leukocytes Nitrite Labor Signs Protein Cervic Dilation Cervic Effacement Cervic Station Type Weight in lbs Pre/Post Dialysis Refused BP Diastolic BP Location Tested BP Systolic BP Type 84 R arm 125 sitting Fetus Heart Rate Present Fetus Movement Comments Flowsheet Date 05/08/2021 Davey Score Blood Edema Fundus Height Fundus Units Glucose Ketones Leukocytes Nitrite Labor Signs Protein Cervic Dilation Cervic Effacement Cervic Station Type Weight in lbs Pre/Post Dialysis Refused BP Diastolic BP Location Tested BP Systolic BP Type Fetus Heart Rate Present Fetus Movement Comments Flowsheet Date 05/08/2021 Davey Score Blood Edema Fundus Height Fundus Units Glucose Ketones Leukocytes Nitrite Labor Signs Protein Cervic Dilation Cervic Effacement Cervic Station Type Weight in lbs Pre/Post Dialysis Refused BP Diastolic BP Location Tested BP Systolic BP Type Fetus Heart Rate Present Fetus Movement Comments Flowsheet Date 05/08/2021 Davey Score Blood Edema Fundus Height Fundus Units Glucose Ketones Leukocytes Nitrite Labor Signs Protein Cervic Dilation Cervic Effacement Cervic Station neg trace trace 2cm 60% -2 Type Weight in lbs Pre/Post Dialysis Refused Weight 182.435831506916 BP Diastolic BP Location Tested BP Systolic BP Type 85 127 Fetus Heart Rate Present Fetus Movement A Yes Comments Doing well. US today 37%, AF I 27, now vertex. Pt still strongly desires CS due to her short stature, family history of CS, and need to address dermoid. DARBY are better. GBS neg. Flowsheet Date 05/15/2021 Davey Score Blood Edema Fundus Height Fundus Units Glucose Ketones Leukocytes Nitrite Labor Signs Protein Cervic Dilation Cervic Effacement Cervic Station Type Weight in lbs Pre/Post Dialysis Refused BP Diastolic BP Location Tested BP Systolic BP Type Fetus Heart Rate Present Fetus Movement Comments Flowsheet Date 05/15/2021 Davey Score Blood Edema Fundus Height Fundus Units Glucose Ketones Leukocytes Nitrite Labor Signs Protein Cervic Dilation Cervic Effacement Cervic Station neg trace trace Type Weight in lbs Pre/Post Dialysis Refused Weight 185.763362447140 BP Diastolic BP Location Tested BP Systolic BP Type 96 134 80 129 Fetus Heart Rate Present A 135 Fetus Movement A Yes Comments CS friday, questions answere d, previously consented. BS perfect. Irregular contractions, she is hoping she makes it to scheduled CS. Great FM. Flowsheet Date 05/18/2021 Davey Score Blood Edema Fundus Height Fundus Units Glucose Ketones Leukocytes Nitrite Labor Signs Protein Cervic Dilation Cervic Effacement Cervic Station Type Weight in lbs Pre/Post Dialysis Refused BP Diastolic BP Location Tested BP Systolic BP Type 93 128 87 139 Fetus Heart Rate Present Fetus Movement Comments Flowsheet Date 05/21/2021 Davey Score Blood Edema Fundus Height Fundus Units Glucose Ketones Leukocytes Nitrite Labor Signs Protein Cervic Dilation Cervic Effacement Cervic Station Type Weight in lbs Pre/Post Dialysis Refused BP Diastolic BP Location Tested BP Systolic BP Type Fetus Heart Rate Present Fetus Movement Comments Flowsheet Date 05/29/2021 Davey Score Blood Edema Fundus Height Fundus Units Glucose Ketones Leukocytes Nitrite Labor Signs Protein Cervic Dilation Cervic Effacement Cervic Station Type Weight in lbs Pre/Post Dialysis Refused Weight 169.908403592026 BP Diastolic BP Location Tested BP Systolic BP Type 88 141 Fetus Heart Rate Present Fetus Movement Comments Menstrual History Last Menstrual Date Menses Monthly On Bcp Conception Prior Menses Frequency Hcg Plus Date Menarche Onset Age 0308/21/2020 Genetic Screening And Infection History Question Response Note Mental Retardation/Autism false Patient's Age Will Be 35 Yea rs Or Older At Estimated Date of Delivery false Thalassemia (Portuguese, Angolan, Mediterranean, Or Background): MCV < 80 false Neural Tube Defect (Meningom yelocele, Spina Bifida, Or Anencephaly) false Congenital Heart Defect false Down Syndrome false [place]achs (eg, Orthodoxy, Cajun, Slovak-Delavan) f alse Serg Disease false Sickle Cell Disease Or Trait () false Hemophilia Or Other Blood Disorders false Muscular Dystrophy false Cystic Fibrosis false [place]'s Chorea false Intellectual Disability/Autism false If Yes, Was Person Tested For Fragile X? false Other Inherited Genetic Or Chromosomal Disorder false Maternal Metabolic Disorder (eg, Type 1 Diabetes, PKU) false Patient Or Baby's Father Had A Child With Defects Not Listed Above false Recurrent Loss, Or A Stillbirth false Medications (including Suppl ements, Vitamins, Herbs, OTC Drugs), Illicit/Recreational Drugs, Alcohol false If Yes, Agent(s) And Strength/Dosage false Any Other Genetic History false Live With Someone With TB Or Exposed To TB false Patient Or Partner Has History Of Genital Herpes false Rash Or Viral Illness Since Last Menstrual Perio d false History Of STD, Gonorrhea, Chlamydia, HPV, Syphi lis false Cervical dysplasia-LEEP Other Infection History false History of HIV false History of Hepatitis false Prior GBS-infected child false Hemoglobinopathy Or Carrier false Other Structural Defect false Recent Travel History Outside of Country false Delivery Information Delivery Date Delivery Type Labor Anesthesia Weeks Gestation Incision Type Labor Labor Length Hrs Delivered By Post Complications Tubal Sterilization Discharge Date Comments 1 None Regional-Sp inal 38.5 Low Transvers e false Radha Parikh MD Polyhydra mnios & GDM & Left Ovarian Dermoid Discharge Information Feeding Method Contraceptive Method Maternal HG B and HCT Levels Ob Episode Information Episode Created Date Number of Fetuses Patient Bloodtype Patient rh Status Prepregnancy Weight lbs Domestic Partner Domestic Partner Phone Father Name Research Technician Status 07/14/19 21 1 CLOSED Fetus Data First Name Last Name Admitted to NICU Weight (g) Sex Living Outcome Pediatric Complications Fetus ID Race Codes Race Delivery Type , Spontane ous [id number] Mina Calculation Initial Mina Date Initial Exam Date Initial Exam Provider Initial Ultrasound Date Last Menstrual Period Date Ultra Sound Weeks Gestation 0 Eighteen To Twenty Week Mina Update Ultra Sound Date Fundal Height At Umbil Quickening Date Ultra Sound Latest Weeks Gestation Final Mina Confirmed By Final Mina Confirmed Date Final Mina Date Ultra Sound Latest Days Gestation 0 0 Menstrual History Last Menstrual Date Menses Monthly On Bcp Conception Prior Menses Frequency Hcg Plus Date Menarche Onset Age Delivery Information Delivery Date Delivery Type Labor Anesthesia Weeks Gestation Incision Type Labor Labor Length Hrs Delivered By Post Complications Tubal Sterilization Discharge Date Comments 8 Discharge Information Feeding Method Contraceptive Method Maternal HG B and HCT Levels Ob Episode Information Episode Created Date Number of Fetuses Patient Bloodtype Patient rh Status Prepregnancy Weight lbs Domestic Partner Domestic Partner Phone Father Name Research Technician Status 04/12/20 24 1 B Positive OPEN Fetus Data First Name Last Name Admitted to NICU Weight (g) Sex Living Outcome Pediatric Complications Fetus ID Race Codes Race Delivery Type [id number] Problems Problem Notes Problem Name Start Date End Date Resolution Snomed Code Not e Past history of section [id number] desires TOLAC Gestational diabetes mellitus 09083660 BS QID , serial growth Female sterilization [id number] s/p LSO at last C/s, considering R salpingectomy at delivery; will need papers signed at 32 weeks Polyhydramnios 78791618 Body mass index 30+ - obesity 118242403 testi ng weekly @ 37wks Mina Calculation Initial Mina Date Initial Exam Date Initial Exam Provider Initial Ultrasound Date Last Menstrual Period Date Ultra Sound Weeks Gestation 10/21/2024 04/12/2024 03/01/2024 01/05/2024 6 Eighteen To Twenty Week Mina Update Ultra Sound Date Fundal Height At Umbil Quickening Date Ultra Sound Latest Weeks Gestation Final Mina Confirmed By Final Mina Confirmed Date Final Mina Date Ultra Sound Latest Days Gestation 0 [email or web address] 04/12/2024 10/22/19 25 0 Pre- Flowsheet Flowsheet Date 04/12/2024 Davey Score Blood Edema Fundus Height Fundus Units Glucose Ketones Leukocytes Nitrite Labor Signs Protein Cervic Dilation Cervic Effacement Cervic Station Type Weight in lbs Pre/Post Dialysis Refused BP Diastolic BP Location Tested BP Systolic BP Type Fetus Heart Rate Present Fetus Movement Comments Flowsheet Date 04/12/2024 Davey Score Blood Edema Fundus Height Fundus Units Glucose Ketones Leukocytes Nitrite Labor Signs Protein Cervic Dilation Cervic Effacement Cervic Station Type Weight in lbs Pre/Post Dialysis Refused Weight 167.875796621909 BP Diastolic BP Location Tested BP Systolic BP Type 83 L arm 124 sitting Fetus Heart Rate Present Fetus Movement Comments Presents to establish prenat al care. Having increased nausea, will try reglan. Tried zofran last , could not tolerate dissolving tablets. Nt/NB wnl today, desires NIPT. Will draw with new OB labs today. Hx of c section with LSO in last . Desires RCS. Discussed right salpingectomy at time of delivery as patient does not desire future children. Will continue to discuss. RTC 4 weeks. Flowsheet Date 05/10/2024 Davey Score Blood Edema Fundus Height Fundus Units Glucose Ketones Leukocytes Nitrite Labor Signs Protein Cervic Dilation Cervic Effacement Cervic Station neg none none trace Type Weight in lbs Pre/Post Dialysis Refused 175.341941522883 BP Diastolic BP Location Tested BP Systolic BP Type 84 L arm 132 sitting Fetus Heart Rate Present A 145 Fetus Movement Comments Nausea improved with Reglan. Having some insomnia, discussed tart daniels juice, magnesium, or melatonin. No cramping or bleeding. Discussed anatomy US for next visit. LR female NIPT. Other OB labs wnl. RTC 4 weeks. Flowsheet Date 06/10/2024 Davey Score Blood Edema Fundus Height Fundus Units Glucose Ketones Leukocytes Nitrite Labor Signs Protein Cervic Dilation Cervic Effacement Cervic Station Type Weight in lbs Pre/Post Dialysis Refused BP Diastolic BP Location Tested BP Systolic BP Type Fetus Heart Rate Present Fetus Movement Comments Flowsheet Date 06/11/2024 Davey Score Blood Edema Fundus Height Fundus Units Glucose Ketones Leukocytes Nitrite Labor Signs Protein Cervic Dilation Cervic Effacement Cervic Station neg none Type Weight in lbs Pre/Post Dialysis Refused Weight 181.392425266926 BP Diastolic BP Location Tested BP Systolic BP Type 85 L arm 115 sitting Fetus Heart Rate Present A Present Fetus Movement A Yes Comments Patient c/o of slight nausea and swelling. Good movement. No cramping or bleeding. Patient now desires TOLAC, r/b discussed including risk of uterine rupture. Repeat growth US at 32 weeks. Anatomy incomplete, needs heart views. Will repeat in 4 weeks. EFW 49%. Flowsheet Date 07/13/2024 Davey Score Blood Edema Fundus Height Fundus Units Glucose Ketones Leukocytes Nitrite Labor Signs Protein Cervic Dilation Cervic Effacement Cervic Station Type Weight in lbs Pre/Post Dialysis Refused BP Diastolic BP Location Tested BP Systolic BP Type Fetus Heart Rate Present Fetus Movement Comments Flowsheet Date 07/14/2024 Davey Score Blood Edema Fundus Height Fundus Units Glucose Ketones Leukocytes Nitrite Labor Signs Protein Cervic Dilation Cervic Effacement Cervic Station neg none Type Weight in lbs Pre/Post Dialysis Refused 185.730389790863 BP Diastolic BP Location Tested BP Systolic BP Type 76 L arm 110 sitting Fetus Heart Rate Present A 150 Fetus Movement A Yes Comments Good movement. No cram ping or bleeding. Anatomy complete and normal, aside from 4% femur length. Will repeat in 4 weeks to reevaluate. Breech. Discussed GCT and labs for next visit. RTC 4 weeks. Flowsheet Date 08/11/2024 Davey Score Blood Edema Fundus Height Fundus Units Glucose Ketones Leukocytes Nitrite Labor Signs Protein Cervic Dilation Cervic Effacement Cervic Station Type Weight in lbs Pre/Post Dialysis Refused BP Diastolic BP Location Tested BP Systolic BP Type Fetus Heart Rate Present Fetus Movement Comments Flowsheet Date 08/11/2024 Davey Score Blood Edema Fundus Height Fundus Units Glucose Ketones Leukocytes Nitrite Labor Signs Protein Cervic Dilation Cervic Effacement Cervic Station neg none Type Weight in lbs Pre/Post Dialysis Refused 194.199877692171 BP Diastolic BP Location Tested BP Systolic BP Type 81 131 Fetus Heart Rate Present Fetus Movement A Yes Comments Patient is having pain, naus ea and vomiting. gct today reviewed us, sherie 24, fl small, ahmet breech, rpt sherie in 2 weeks then 4 week growth. discussed risk of uterine rupture at 1%, questions answered, spinning babies exercises reviewed, education and precautions Flowsheet Date 08/25/2024 Davey Score Blood Edema Fundus Height Fundus Units Glucose Ketones Leukocytes Nitrite Labor Signs Protein Cervic Dilation Cervic Effacement Cervic Station Type Weight in lbs Pre/Post Dialysis Refused BP Diastolic BP Location Tested BP Systolic BP Type Fetus Heart Rate Present Fetus Movement Comments Flowsheet Date 08/25/2024 Davey Score Blood Edema Fundus Height Fundus Units Glucose Ketones Leukocytes Nitrite Labor Signs Protein Cervic Dilation Cervic Effacement Cervic Station neg none neg Type Weight in lbs Pre/Post Dialysis Refused 194.791070011560 BP Diastolic BP Location Tested BP Systolic BP Type 76 116 Fetus Heart Rate Present Fetus Movement A Yes Comments Patient is having BH contrac tions, nausea and vomiting. polyhydramnios, doing 3 hour friday but has already started the gdm diet , rpt US in 2 weeks, start testing +FM, precautions and education, breech Flowsheet Date 09/08/2024 Davey Score Blood Edema Fundus Height Fundus Units Glucose Ketones Leukocytes Nitrite Labor Signs Protein Cervic Dilation Cervic Effacement Cervic Station Type Weight in lbs Pre/Post Dialysis Refused 195.202824667469 BP Diastolic BP Location Tested BP Systolic BP Type 74 L arm 108 sitting Fetus Heart Rate Present Fetus Movement A Yes Comments Flowsheet Date 09/08/2024 Davey Score Blood Edema Fundus Height Fundus Units Glucose Ketones Leukocytes Nitrite Labor Signs Protein Cervic Dilation Cervic Effacement Cervic Station Type Weight in lbs Pre/Post Dialysis Refused BP Diastolic BP Location Tested BP Systolic BP Type Fetus Heart Rate Present Fetus Movement Comments Flowsheet Date 09/08/2024 Davey Score Blood Edema Fundus Height Fundus Units Glucose Ketones Leukocytes Nitrite Labor Signs Protein Cervic Dilation Cervic Effacement Cervic Station Type Weight in lbs Pre/Post Dialysis Refused 195.271532688886 BP Diastolic BP Location Tested BP Systolic BP Type 74 L arm 108 sitting Fetus Heart Rate Present Fetus Movement A Yes Comments vertex on us today, reviewed blood sugars fastings elevated, rec insulin, pt would like to try to reduce with evening snack will have RN call Friday if still elevated plan insulin NST R, precautions and education f/u one week, tubal consent signed Flowsheet Date 09/15/2024 Davey Score Blood Edema Fundus Height Fundus Units Glucose Ketones Leukocytes Nitrite Labor Signs Protein Cervic Dilation Cervic Effacement Cervic Station Type Weight in lbs Pre/Post Dialysis Refused BP Diastolic BP Location Tested BP Systolic BP Type Fetus Heart Rate Present Fetus Movement Comments Flowsheet Date 09/15/2024 Davey Score Blood Edema Fundus Height Fundus Units Glucose Ketones Leukocytes Nitrite Labor Signs Protein Cervic Dilation Cervic Effacement Cervic Station Type Weight in lbs Pre/Post Dialysis Refused Weight 194.619098135703 BP Diastolic BP Location Tested BP Systolic BP Type 85 127 Fetus Heart Rate Present Fetus Movement Comments Flowsheet Date 09/15/2024 Davey Score Blood Edema Fundus Height Fundus Units Glucose Ketones Leukocytes Nitrite Labor Signs Protein Cervic Dilation Cervic Effacement Cervic Station neg none Type Weight in lbs Pre/Post Dialysis Refused 194.774718839130 BP Diastolic BP Location Tested BP Systolic BP Type 85 127 Fetus Heart Rate Present Fetus Movement A Yes Comments Patient is having pressure, pain, contractions, nausea and vomiting. reviewed polyhydramnios, blood sugars ok, +FM, precautions and education, breech, f/u one week Flowsheet Date 09/22/2024 Davey Score Blood Edema Fundus Height Fundus Units Glucose Ketones Leukocytes Nitrite Labor Signs Protein Cervic Dilation Cervic Effacement Cervic Station Type Weight in lbs Pre/Post Dialysis Refused Weight 196.141564915214 BP Diastolic BP Location Tested BP Systolic BP Type 89 L arm 139 sitting Fetus Heart Rate Present Fetus Movement Comments Flowsheet Date 09/22/2024 Davey Score Blood Edema Fundus Height Fundus Units Glucose Ketones Leukocytes Nitrite Labor Signs Protein Cervic Dilation Cervic Effacement Cervic Station neg none Type Weight in lbs Pre/Post Dialysis Refused 196.908487468096 BP Diastolic BP Location Tested BP Systolic BP Type 89 139 Fetus Heart Rate Present Fetus Movement A Yes Comments Patient is having nausea and vomting. reviewed US, mild poy, vtx, bpp 10/10 +FM, gbs collected, blood sugars reviewed, IOL scheduled at 39 weeks precautions and education f/u 1 week Flowsheet Date 09/22/2024 Davey Score Blood Edema Fundus Height Fundus Units Glucose Ketones Leukocytes Nitrite Labor Signs Protein Cervic Dilation Cervic Effacement Cervic Station Type Weight in lbs Pre/Post Dialysis Refused BP Diastolic BP Location Tested BP Systolic BP Type Fetus Heart Rate Present Fetus Movement Comments Flowsheet Date 09/29/2024 Davey Score Blood Edema Fundus Height Fundus Units Glucose Ketones Leukocytes Nitrite Labor Signs Protein Cervic Dilation Cervic Effacement Cervic Station Type Weight in lbs Pre/Post Dialysis Refused BP Diastolic BP Location Tested BP Systolic BP Type Fetus Heart Rate Present Fetus Movement Comments Flowsheet Date 09/29/2024 Davey Score Blood Edema Fundus Height Fundus Units Glucose Ketones Leukocytes Nitrite Labor Signs Protein Cervic Dilation Cervic Effacement Cervic Station Type Weight in lbs Pre/Post Dialysis Refused BP Diastolic BP Location Tested BP Systolic BP Type Fetus Heart Rate Present Fetus Movement Comments Flowsheet Date 09/29/2024 Davey Score Blood Edema Fundus Height Fundus Units Glucose Ketones Leukocytes Nitrite Labor Signs Protein Cervic Dilation Cervic Effacement Cervic Station Type Weight in lbs Pre/Post Dialysis Refused 133.027251639487 BP Diastolic BP Location Tested BP Systolic BP Type 86 R arm 124 sitting Fetus Heart Rate Present A 145 Fetus Movement A Yes Comments no complaints, no problems, routine care, no contractions, no vaginal bleeding, no loss of fluid, no cramping Menstrual History Last Menstrual Date Menses Monthly On Bcp Conception Prior Menses Frequency Hcg Plus Date Menarche Onset Age 0701/05/20[birth year] Delivery Information Delivery Date Delivery Type Labor Anesthesia Weeks Gestation Incision Type Labor Labor Length Hrs Delivered By Post Complications Tubal Sterilization Discharge Date Comments Discharge Information Feeding Method Contraceptive Method Maternal HG B and HCT Levels
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
--- OUTSIDE RECORDS SUMMARY | 2024-10-02 10:29 | XMS_ITS | Referral Summary ---
Author Organization [facility] Address [address] [place] [address] Care Team Providers Care Finance Clerk Name Role Phone Laurel Plummer MD Primary [...] 06/24/2023 Assessment & Plan (06/24/2023 8:50 AM SOUND ASSISTANT): Acute problem- this is a new problem [...] 06/24/2023 Assessment & Plan (06/24/2023 8:55 AM SOUND ASSISTANT): Chronic problem- not at /near goal BMI <30 Encouraged to follow heart healthy diet, low carb Encouraged to increase activity to at least 150 min/week Continue to monitor BMI Follow-up includes: nutrition counseling, exercise counseling, and education provided. Bronchospasm, exercise-induced 06/24/2023 Assessment & Plan (06/24/2023 9:02 AM SOUND ASSISTANT): This is a chronic problem-stable Continue with albuterol inhaler 90 mcg- 2 puffs every 6 hours prn-refill sent this visit Patient encouraged to use 15 to 30 minutes prior to exercising to help reduce the need to use during exercise Continue to monitor Dermatitis 06/23/2023 Assessment & Plan (06/24/2023 8:48 AM SOUND ASSISTANT): Acute problem- this is a new problem Ordered triamcinolone 0.1%- apply to region bid prn Plan to consult dermatology if no improvement Patient educated on medication and side effects Keep skin clean and dry Avoid scratching area Good hand hygiene Continue to monitor Encounter for wellness examination 04/25/2022 Assessment & Plan (06/24/2023 8:51 AM SOUND ASSISTANT): Recommend flu vaccine every March-patient declines Recommend covid booster Routine well woman exam as directed by ObGyn Mammogram ordered- strong family hx-continue yearly screenings Fasting labs ordered- obtain this week Follow up with pcp in 1 year for annual-sooner prn Medications reviewed and reconciled this visit Assessment & Plan (04/25/2022 3:42 PM SOUND ASSISTANT): Ordered CBC, cmp, lipid, hgb a1c, TSH Flu declines Pap smear:follows with ob. Up to date F/u in 1 year for annual Sprain of anterior talofibular ligament of right ankle 01/19/2021 Sprain of deltoid ligament of right ankle 2020 Ganglion cyst of wrist 11/18/2016 Hypertension 10/30/2013 Overview (09/18/2016): High blood pressure Assessment & Plan (06/24/2023 8:53 AM SOUND ASSISTANT): Chronic problem- stable without medication BP this visit 112/84 Continue to monitor Recommend DASH diet, heart-healthy lifestyle, exercise. Discussed the risks of hypertension. Assessment & Plan (04/25/2022 2:43 PM SOUND ASSISTANT): Bp in the office today BP Readings from Last 1 Encounters: 04/25/22 110/80 Continue with weight loss and diet Recommend DASH diet, heart-healthy lifestyle, exercise. Discussed the risks of hypertension. F/u in 1 year Depression 10/30/2013 Overview (09/18/2016): Depression Assessment & Plan (06/24/2023 8:51 AM SOUND ASSISTANT): Chronic problem-stable Continue venlafaxine 37.5 mg daily Follow up with Damper Fitter Continue to monitor Patient reiterated no suicidal thoughts at this time; take medication as directed; contact 911 and go to the ER if becomes suicidal; discussed side effects of medication with patient; encouraged healthy diet and exericise; encouraged patient to see a counselor Assessment & Plan (04/25/2022 2:44 PM SOUND ASSISTANT): Recently started on effexor by ob F/u [...] on file Legal Sex Female 9:41 AM SOUND ASSISTANT Gender Identity Not on file Sexual Orientation Not on file Last Filed Vital Signs Vital Sign Reading Time Taken Comments Blood Pressure 134/78 04/30/2024 5:32 PM SOUND ASSISTANT Pulse 110 04/30/2024 5:32 PM SOUND ASSISTANT Temperature 36.9 C (98.4 F) 04/30/2024 5:32 PM SOUND ASSISTANT Respiratory Rate 18 04/30/2024 5:32 PM SOUND ASSISTANT Oxygen Saturation 98% 04/30/2024 5:32 PM SOUND ASSISTANT Inhaled Oxygen Concentration - - Weight 78.9 kg (174 lb) 04/30/2024 5:32 PM SOUND ASSISTANT Height 149.9 cm (4' 11 ) 04/30/2024 5:32 PM SOUND ASSISTANT Body Mass Index 35.14 04/30/2024 5:32 PM SOUND ASSISTANT Plan of Treatment Not on file Insurance [facility] [place] [id number] [facility] Care Teams Finance Clerk Relationship Specialty Start Date End Date Laurel Plummer MD [address] [place] [address] DR BEEBE [address] [place] [id number] PCP - General Family Medicine 04/25/22
--- OUTSIDE RECORDS SUMMARY | 2024-10-02 10:29 | XMS_ITS | Clinical Summary ---
Author Organization [facility] Address [address] [place] [address] Phone Care Team Providers Care Assistant Baseball Coach Name Role Phone Unavailable Unavailable Unavailable Reason [...] - Last Documented On 06/04/2017 1:26PM ; [facility] Instructions to patient Instructions for patient : B reast Self Exam discussed Last Documented On 7 1:06PM ; [facility] Education and Decision Aids were provided during visit for: Patient counseling : Use of oral contraceptives discussed in detail including rare occurrence of heart attack, stroke, and leg clots. Patient understands that smoking increases the risk of serious side effects with any steroid-based contraceptive method Last Documented On 7 1:22PM ; [facility] STD screening offered and de clined Last Documented On 7 1:06PM ; [facility] Assessments Includes: Assessments from this encounter Findings - Routine pelvic exam - Last Documented On 06/04/2017 1:26PM ; [facility] Instructions Includes: Instructions from this encounter Instructions to patient Instructions for patient : B reast Self Exam discussed Last Documented On 7 1:06PM ; [facility] Education and Decision Aids were provided during visit for: Patient counseling : Use of oral contraceptives discussed in detail including rare occurrence of heart attack, stroke, and leg clots. Patient understands that smoking increases the risk of serious side effects with any steroid-based contraceptive method Last Documented On 7 1:22PM ; [facility] STD screening offered and de clined Last Documented On 7 1:06PM ; [facility] Medical Equipment - Implanted Devices Includes: Current Devices No Medical Equipment Recorded Medications Includes: Medications discussed during this encounter and other current Medications New / Renewed during this visit ZULEMA CASTANON MD on 06/04/2017 Levonorgest-Eth Estrad 91-Da y 0.1-0.02 & 0.01MG Oral Tablet Provider: ZULEMA DAWSON MD day supply: 91 tablet, 3 refills Diagnosis: One tablet daily Pharmacy: [address], [phone] - Last Documented On 06/04/2017 1:40PM By ZULEMA CASTANON MD ; [facility] Current Medications (continue as prescribed) Sertraline HCl 50MG Oral Tablet 02/10/2017 Provider: Diagnosis: Last Documented On 11:58AM By FEDE WATT ; [facility] Medications Administered Includes: Administered Medications from this encounter No Administered Medications Recorded Vital Signs Includes: Vital Signs from this encounter Vital Name 06/04/2017 12:58P Blood Pressure Sitting (mmHg) 112/70 Pulse Rate-Sitting (bpm) 101 Height (in) 59 Weight (lb) 128 Body Mass Index (kg/m2) 25.9 Body Surface Area (m2) 1.5 Last Documented: On 06/04/2017 1:00PM ; [facility] Results Includes: Results discussed during this [...] No vaginal discharge. 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 [employer] Social History Description Last Updated In monogamous relationship 06/04/2017 Last Documented On 7 1:26PM ; [facility] Alcohol use: 2 drinks or less per day oc c 06/04/2017 Last Documented On 7 1:26PM ; [facility] Cigarette smoking less than 1/2 pack a d ay 06/04/2017 Last Documented On 7 1:26PM ; [facility] Sexually active 06/04/2017 Last Documented On 7 1:26PM ; [facility] Smoking Status Unknown Procedures and Surgical History Includes: Procedures from this encounter Procedures Code Diagnosis Performing Provider Service L ocation Service Date Clinical summary provided to patient Last Documented On 7 1:06PM ; [facility] Medical History Includes: Medical History addressed during this encounter Description Last Updated Contraception: OCP 06/04/2017 Last Documented On 7 1:26PM ; [facility] Aborta 1 06/04/2017 Last Documented On 7 1:26PM ; [facility] 1 06/04/2017 Last Documented On 7 1:26PM ; [facility] Last pap smear date 09/14/2015 06/04/2017 Last Documented On 7 1:26PM ; [facility] LMP: 05/29/2017 06/04/2017 Last Documented On 7 1:26PM ; [facility] Para 06/04/2017 Last Documented On 7 1:26PM ; [facility] Result: normal 06/04/2017 Last Documented On 7 1:26PM ; [facility] Family History Includes: Family History addressed during this encounter Description Last Updated Family history of malignant neoplasm of the ovary maternal cousin and grandmother 02/10/2017 Last Documented On 7 12:53PM ; [facility] No family history of malignant neoplasm of large intestine 02/10/2017 Last Documented On 7 12:53PM ; [facility] diabetes 02/10/2017 Last Documented On 7 12:53PM ; [facility] Family history of malignant female breas t neoplasm mother 02/10/2017 Last Documented On 7 12:53PM ; [facility] Review of Systems Includes: Review of [...] Active Last Documented On 7 12:58PM ; [facility] Encounters Encounter Provider Location Date Check-In Time Check-Out Time Diagnosis FINANCIAL SERVICES DIRECTOR EXAM ZULEMA CASTANON MD [facility] 06/04/20 17 12:52PM 1:54PM Routine Pelvic Exam Insurance Includes: Active Insurance Policies Plan Name Member ID Group # Subscriber Relationship Effect andreas Dates 1 - [facility] [id number] RAMOS SINGH Parent Clinical Notes Includes: Clinical Notes from this encounter No Clinical Notes Recorded
--- OUTSIDE RECORDS SUMMARY | 2024-10-02 10:30 | XMS_ITS ---
Care Plan - [facility] Created on: October 02, 2024 LAMIN SINGH : 1990 Sex: Female Author Organization [facility] Address [address] [place] [address] Phone Care Team Providers Care Residential Property Consultant Name Role Phone Unavailable Unavailable Unavailable
--- OUTSIDE RECORDS SUMMARY | 2024-10-02 10:30 | XMS_ITS | Clinical Summary ---
Author Organization [facility] Address [address] [place] [address] Phone Care Team Providers Care Practice Director Name Role Phone Unavailable Unavailable Unavailable [...] On 7 11:58AM By FEDE WATT ; [facility] Medications Administered Includes: Administered Medications [...] Active Last Documented On 7 12:58PM ; [facility] Encounters Encounter Provider Location Date Check-In Time Check-Out Time Diagnosis ULTRASOUND 45 MIN. - ULTRASOUND ZULEMA CASTANON MD [facility] GAS ROLLER OPERATOR 7 12:44PM 1:58PM Insurance Includes: Active Insurance Policies Plan Name Member ID Group # Subscriber Relationship Effect andreas Dates 1 - [facility] [id number] RAMOS SINGH Parent Clinical Notes Includes: Clinical Notes from this encounter No Clinical Notes Recorded
[2024-10-02] MEDS: LACTATED RINGERS 1,000 ML 125 ML IV CONT ×3 (10:45→17:10)
[2024-10-02 10:46] LABS: Basophils Percent Auto 0.3 % (0.2-1.2); Eosinophils Percent Auto 0.2 % (0-4.4); Hematocrit 37.8 % (37.0-47.0); Hemoglobin 12.2 g/dL (12.0-15.0); Immature Granulocyte Absolute 0.08 K/mm3 (0.00-0.031); Immature Granulocyte Percent A 0.5 % (0-0.5); Lymphocytes Absolute Auto 2.05 K/mm3 (0.9-3.2); Lymphocytes Percent Auto 13.7 % (18.3-44.2); Mean Corpuscular HGB Conc 32.3 g/dl (32-36); Mean Corpuscular Hemoglobin 26.6 pg (26-34); Mean Corpuscular Volume 82.5 fl (80-100); Mean Platelet Volume 9.7 fl (7.4-10.4); Monocytes Absolute Auto 0.8 K/mm3 (0.1-0.6); Monocytes Percent Auto 5.4 % (2.6-8.5); Neutrophils Absolute Auto 11.9 K/mm3 (1.3-6.7); Neutrophils Percent Auto 79.9 % (45.5-73.1); Platelet Count Result 319 k/mm3 (150-375); Red Blood Count 4.58 M/mm3 (4.2-5.4); White Blood Count 14.9 K/mm3 (4.5-10.0)
--- NOTE | 2024-10-02 10:56 | LDADM ---
This patient, Tejal Pérez, was admitted to Labor/Delivery/Recovery 102 on 10/02/24 at 10:06. Plans for labor, pain management and were discussed with patient. Patient/family oriented to hospital policies and general routines including ID bracelet, bed and alarms, visiting hours, pain management, procedures, bathroom and other care routines, personal items, smoking policy, room service/diet and guest tray routines, infant security routines, and visiting hours. Patient/Family are encouraged to report perceived risks to care and to ask questions if they do not understand what they are told or what they should do. See OBIX for further documentation.
[2024-10-02 11:16] LABS: Glucose Point of Care 91 mg/dl (65-105)
[2024-10-02 11:26] LABS: Syphilis IgG/IgM Antibody Negative (Negative)
[2024-10-02] MEDS: ONDANSETRON INJ 4 MG/2 ML VIAL IV PUSH ×2 (11:34→19:17)
[2024-10-02] MEDS: fentaNYL CITRATE INJ (*CRX) 100 MCG/2 ML VIAL 50 MCG IV PUSH (11:35)
[2024-10-02 11:40] LABS: HIV 1/2 Ab P24 Ag Result Negative (Negative)
--- NOTE | 2024-10-02 11:54 | P.PNAN_ITS ---
Anes - Initial Pre Proc Eval Date/Time: 10/02/24 11:54 Surgeon: Agus Barillas MD Pre Op Diagnosis: Labor Patient Data Age: 34 Gender: F Height: 1.5 m Weight: 87.4 kg Last Vital Signs Pulse 108 H 10/02/24 11:53 BP 142/88 H 10/02/24 11:53 Pulse Ox 98 10/02/24 11:53 Allergies Allergy/AdvReac Type Severity Reaction Status Date / Time hydromorphone (From Dilaudid) Allergy Rash Verified 09/20/24 14:52 Home Medications ?Medication ?Instructions ?Recorded ?Confirmed ?Type vit no.95-ferrous 1 tablet PO DAILY 04/28/21 10/02/24 History fumarate 28 mg-folic acid 800 mcg tablet () venlafaxine 37.5 mg 37.5 mg PO DAILY 09/20/24 10/02/24 History capsule,extended release 24 hr (Effexor XR) Laboratory Tests 10/02/24 10/02/24 10:39 11:11 WBC 14.9 H K/mm3 (4.5-10.0) RBC 4.58 M/mm3 (4.2-5.4) Hgb 12.2 g/dL (12.0-15.0) Hct 37.8 % (37.0-47.0) MCV 82.5 fl (80-100) MCH 26.6 pg (26-34) MCHC 32.3 g/dl (32-36) RDW 14.0 % (11.5-14.5) Plt Count 319 k/mm3 (150-375) MPV 9.7 fl (7.4-10.4) Immature Gran % (Auto) 0.5 % (0-0.5) Neut % (Auto) 79.9 H % (45.5-73.1) Lymph % (Auto) 13.7 L % (18.3-44.2) Buchanan % (Auto) 5.4 % (2.6-8.5) Eos % (Auto) 0.2 % (0-4.4) Baso % (Auto) 0.3 % (0.2-1.2) Lymph # (Auto) 2.05 K/mm3 (0.9-3.2) Buchanan # (Auto) 0.8 H K/mm3 (0.1-0.6) Eos # (Auto) 0.0 K/mm3 (0-0.3) Baso # (Auto) 0.0 K/mm3 (0.0-0.1) Abs Immat Gran (auto) 0.08 H K/mm3 (0.00-0.031) Absolute Neuts (auto) 11.9 H K/mm3 (1.3-6.7) Absolute Nucleated RBC 0.000 K/mm3 (0.0-0.012) Nucleated RBC % 0.0 % (0.0-0.2) POC Capillary Glucose 91 mg/dl (65-105) Syphilis IgG/IgM Ab Negative (Negative) HIV 1&2 Ab/P24 Ag 4thGn Negative (Negative) Blood Type B Positive Antibody Screen Pending Patient hx anesthesia problems: none Family hx anesthesia problems: none Results Review: All pre-operative results and documents have been reviewed as part of the pre- operative evaluation. [facility] Family History Family History Mother Breast cancer Social History Social History Smoking status: Former smoker Second hand tobacco smoke exposure: No Substance use: never Do You Feel Safe in your Home?: Yes Lack of Transportation: No Lack of Food: Never True Current Housing: I Have Housing Concerned About Future Housing: No Difficulty Paying Gas/Electric Bills: No Difficulty Paying for Meds: No Currently Unemployed: No Education: High School Diploma/GED Difficulty w/ Childcare or Family Care: No Spiritual care concerns: No Anes - Eval Final PreProcedure Day of Procedure 10/02/24 11:54 Patient weight: obese Heart: tachycardia Neurological: alert and oriented ASA classification: III Emergent: no Anesthetic plan: proceed Anesthesia type and monitoring: regional epidural and standard monitoring Results Review: All pre-operative results and documents have been reviewed as part of the pre- operative evaluation. Informed Consent: The patient's anesthetic plan and its attendant risks and benefits were discussed with the patient/family/POA. Questions were solicited and answers provided to the satisfaction of the patient/family/POA.
[2024-10-02 15:24] LABS: Glucose Point of Care 68 mg/dl (65-105)
[2024-10-02 15:24] LABS: Glucose Point of Care 76 mg/dl (65-105)
[2024-10-02] MEDS: OXYTOCIN 30 UNITS/NS 500 ML 30 UNITS/500 ML BAG IV CONT (15:58)
[2024-10-02 16:50] LABS: Glucose Point of Care 89 mg/dl (65-105)
[2024-10-02 19:55] LABS: Glucose Point of Care 60 mg/dl (65-105)
[2024-10-02 20:15] LABS: Glucose Point of Care 73 mg/dl (65-105)
[2024-10-02 20:53] LABS: Glucose Point of Care 116 mg/dl (65-105)
[2024-10-02 22:04] LABS: Glucose Point of Care 115 mg/dl (65-105)
[2024-10-02] MEDS: METOCLOPRAMIDE HCL INJ 10 MG/2 ML VIAL IV PUSH (22:10)
[2024-10-03] VITALS (143 sets, daily range): BP systolic 87–136; BP diastolic 53–101; PULSE 84–174; RESP 16–18; TEMP 36–39.1; O2SAT 93–100
[2024-10-03 00:11] LABS: Glucose Point of Care 96 mg/dl (65-105)
[2024-10-03 02:12] LABS: Glucose Point of Care 102 mg/dl (65-105)
[2024-10-03 05:14] LABS: Glucose Point of Care 111 mg/dl (65-105)
[2024-10-03] MEDS: ONDANSETRON INJ 4 MG/2 ML VIAL IV PUSH (06:13)
[2024-10-03 06:54] LABS: Glucose Point of Care 115 mg/dl (65-105)
--- NOTE | 2024-10-03 07:56 | WPDHPUPDATE1 ---
History and Physical Update Update Date/Time: 10/03/24 07:56 34-year-old primiparous female at term presented in labor. Progressed through labor to 9 cm. Artificial rupture membranes was performed. Clear fluid. Epidural. Reassuring status. Expectant management of labor. History and Physical has been reviewed, including an updated exam of the patient. There are NO changes in the patient's condition. Risks, benefits, and alternatives have been discussed and questions answered. Patient agrees to proceed with procedure.
[2024-10-03] MEDS: LACTATED RINGERS 1,000 ML 125 ML IV CONT (08:17)
[2024-10-03] MEDS: AMPICILLIN 2 GM/NS 100 ML 2 GM/100 ML BAG IVPB ×3 (08:35→22:14)
[2024-10-03] MEDS: ACETAMINOPHEN 500 MG TABLET 1000 MG PO (08:38)
[2024-10-03] MEDS: OXYTOCIN 30 UNITS/NS 500 ML 30 UNITS/500 ML BAG 125 UNITS IV CONT (09:21)
--- NOTE | 2024-10-03 09:22 | PM.OBPRVD ---
OB - Vaginal Delivery Note Procedure Delivery date: 10/03/24 Delivery augmentation: Pitocin Delivery monitor: External FHT and External Uterine Route of delivery: Episiotomy description: None Laceration Description: Perineal - 1st Degree Delivery repair: vicryl Specimen: No Quantitative Blood Loss (ml): 75 Anesthesia type: Epidural Disposition: Floor Complications: No immediate complications
[2024-10-03] MEDS: metroNIDAZOLE 500 MG/ISO 100ML 500 MG/100 ML BAG 100 MG IVPB ×2 (09:24→17:09)
[2024-10-03] MEDS: IBUPROFEN 600 MG TABLET PO ×3 (10:21→22:27)
[2024-10-03 10:55] LABS: Hepatitis B Surface Antigen Negative (Negative)
[2024-10-03 11:12] LABS: HIV 1/2 Ab P24 Ag Result Negative (Negative); Hepatitis C Virus Antibody Negative (Negative)
--- NOTE | 2024-10-03 11:42 | PM.OBPRVD ---
OB - Vaginal Delivery Note Procedure Delivery date: 10/03/24 Induction method: None Delivery augmentation: Rupture of Membranes Delivery monitor: External FHT and External Uterine Route of delivery: Episiotomy description: None Laceration Description: Perineal - 1st Degree and Perineal - 2nd Degree Delivery repair: vicryl Specimen: No Quantitative Blood Loss (ml): 200 Anesthesia type: Epidural Complications: None
--- NOTE | 2024-10-03 12:00 | OBPPTRN ---
Patient transferred to post room #288 via wheelchair. Support person present. Oriented to unit, room, information board, rooming in, admission packet and security measures. Patient verbalizes understanding.
[2024-10-03] MEDS: HYDROcodone/acetaminophen (*CRX) 10-325 MG TABLET 1 TAB PO (13:42)
[2024-10-03] MEDS: HYDROcodone/acetaminophen (*CRX) 5-325 MG TABLET 1 TAB PO ×3 (19:49→22:57)
[2024-10-04] MEDS: metroNIDAZOLE 500 MG/ISO 100ML 500 MG/100 ML BAG 100 MG IVPB ×2 (00:52→09:03)
[2024-10-04 01:00] VITALS: BP 132/88; PULSE 87; RESP 16; TEMP 36.2; O2SAT 99
[2024-10-04] MEDS: LIDOCAINE 5% PATCH 1 PATCH TRANSDERM (01:40)
[2024-10-04] MEDS: ONDANSETRON INJ 4 MG/2 ML VIAL IV PUSH (03:52)
[2024-10-04] MEDS: AMPICILLIN 2 GM/NS 100 ML 2 GM/100 ML BAG IVPB ×2 (04:01→10:39)
[2024-10-04 06:38] LABS: Hematocrit 32.4 % (37.0-47.0); Hemoglobin 10.1 g/dL (12.0-15.0)
[2024-10-04] MEDS: IBUPROFEN 600 MG TABLET PO ×3 (07:07→23:15)
[2024-10-04] MEDS: DIBUCAINE 1% OINTMENT 30 GM TUBE 1 APPLIC TOPICAL (07:07)
[2024-10-04] MEDS: DOCUSATE SODIUM 100 MG CAPSULE PO ×2 (07:07→15:27)
--- NOTE | 2024-10-04 07:25 | WPDANESPN ---
Anes - Prog Note Post-Op Date/Time: 10/04/24 07:25 Cardiovascular status: normal Respiratory status: normal Airway patency: baseline Mental status: baseline Post-Op hydration status: normal Vital Signs: Last Vital Signs Temp 36.2 C L 10/04/24 01:00 Pulse 87 10/04/24 01:00 Resp 16 10/04/24 01:00 BP 132/88 10/04/24 01:00 Pulse Ox 99 10/04/24 01:00 O2 Del Method Room Air 10/03/24 12:15 Pain Score (VAS): 1 I/O: Intake & Output 10/03/24 10/03/24 10/04/24 15:59 23:59 07:59 Intake Total 134.2 300 Output Total 275 Balance -140.8 300 Laboratory Tests 10/04/24 06:33 10/03/24 10/04/24 10:01 06:33 Hgb 10.1 L Hct 32.4 L Hep Bs Antigen Negative Hepatitis C Ab Screen Negative HIV 1&2 Ab/P24 Ag 4thGn Negative Post-procedural complaints: none Patient Feedback: Patient satisfied with anesthetic care.
[2024-10-04 08:10] VITALS: BP 128/80; PULSE 82; RESP 18; TEMP 36.8; O2SAT 98
--- NOTE | 2024-10-04 08:30 | P.PNOB_ITS ---
OB - PN: Subj Subjective Date/time seen: 10/04/24 08:30 Patient comments: no complaints, pain well controlled, incisional pain, tolerating diet and flatus present OB - PN: Obj Data Labs 10/04/24 06:33 Labs: Laboratory Results - last 24 hr 10/03/24 10/04/24 10:01 06:33 Hgb 10.1 L Hct 32.4 L Hep Bs Antigen Negative Hepatitis C Ab Screen Negative HIV 1&2 Ab/P24 Ag 4thGn Negative OB - PN A/P Plan day: 1 Plan: routine care Comments: No problems, routine care Time Spent With Patient Time: Total time spent is greater than 50% in coordination of care (as documented) at patient's floor/unit and/or counseling patient: Exam 2 Const: General: comfortable, no acute distress and alert Resp: Effort & Inspection: normal respiratory effort Auscultation: no crackles, no rales and no rhonchi Cardio: Rate: regular rate Heart sounds: no click, no murmurs and no rubs GI: Inspection: non-distended GI Palp: No Tenderness to palpation present (GI) Auscultation: normal bowel sounds Other: Incision - CDI Extrem: General: normal to inspection, no pedal edema and no calf tenderness
--- NOTE | 2024-10-04 09:03 | PCCCNOTE ---
Consult received for mother scored high on OB Substance Abuse Screening. Spoke with RN who reports no concerns, mother urine drug screen tested positive for marijuana, which is legal thus DCFS does not take reports on. Spoke with mother who confirmed she has everything she needs for baby. Mother was given basket and resource list. This is her second baby and has not had any prior DCFS reports. No concerns at this time. RN updated.
[2024-10-04] MEDS: ACETAMINOPHEN 325 MG TABLET 650 MG PO ×2 (15:26→23:15)
[2024-10-04] MEDS: CYCLOBENZAPRINE HCL 10 MG TABLET PO (15:27)
[2024-10-04 20:00] VITALS: BP 120/83; PULSE 98; RESP 18; TEMP 36.6; O2SAT 99
[2024-10-05] MEDS: LIDOCAINE 5% PATCH 1 PATCH TRANSDERM (01:05)
[2024-10-05] MEDS: ACETAMINOPHEN 325 MG TABLET 650 MG PO ×2 (05:09→10:26)
[2024-10-05] MEDS: IBUPROFEN 600 MG TABLET PO ×2 (05:09→10:26)
--- NOTE | 2024-10-05 06:51 | P.PNOB_ITS ---
OB - PN: Subj Subjective Date/time seen: 10/05/24 06:51 Patient comments: no complaints, pain well controlled and tolerating diet OB - PN: Obj Data Labs 10/04/24 06:33 OB - PN A/P Plan day: 2 Plan: routine care and discharge home Time Spent With Patient Time: Total time spent is greater than 50% in coordination of care (as documented) at patient's floor/unit and/or counseling patient: Exam 2 Const: General: comfortable and no acute distress Resp: Effort & Inspection: normal respiratory effort Auscultation: no rales, no rhonchi and no wheezes Cardio: Rate: regular rate Heart sounds: no click, no murmurs and no rubs GI: GI Palp: Yes Soft to palpation and No Tenderness to palpation present (GI) Auscultation: normal bowel sounds Extrem: General: normal to inspection, no pedal edema and no calf tenderness
--- NOTE | 2024-10-05 06:53 | P.DS_ITS ---
DS: Admitting Diagnosis Discharge Date 10/05/2024 Admitting Diagnosis Term DS: Discharge Diagnosis Discharge Diagnosis (1) Vaginal after , delivered, current hospitalization: Code(s): O34.219 - Maternal care for unspecified type scar from previous delivery Status: Acute OB - DS: Summary OB Procedures : None OB Procedures Intrapartum: Spontaneous Vag Delivery OB Procedures: : None Peripartum Data Laceration Description: Perineal - 1st Degree Episiotomy description: None Time Spent with Patient Time attestation: Total time spent providing and/or coordinating discharge services: Discharge Plan Discharge Discharging Clinician: Agus Barillas Patient Disposition: Home Activity: pelvic rest and no preference Diet: regular Patient Instructions: Antibiotic Form Patient Language: Tajik Stand Alone Forms: General Discharge Information Follow-up/Referrals: Agus Barillas MD [Physician] - Discharge Medications: New ibuprofen 800 mg tablet 800 mg PO TID Qty: 20 0RF lidocaine 1.8 % adhesive patch,medicated 1 patch topical DAILY Qty: 30 0RF Rx Instructions: leave on most painful area for up to 12 hrs Continued PNV cmb#95-ferrous fumarate-FA [] 28 mg iron- 800 mcg Tablet 1 tablet PO DAILY venlafaxine [Effexor XR] 37.5 mg capsule,extended release 24hr 37.5 mg PO DAILY Date of admission: 10/02/24 10:06 Primary Care Provider: PHYSICIAN,TRAVEL COUNSELOR Admitting Provider: Agus Barillas Attending physician on admission: Agus Barillas Condition: Stable
[2024-10-05 08:25] VITALS: BP 130/86; PULSE 73; RESP 16; TEMP 36.8; O2SAT 98
[2024-10-05] MEDS: MULTIVIT/MIN/PREN/FOL AC/IRON TABLET 1 TAB PO (08:57)
[2024-10-05] MEDS: HYDROcodone/acetaminophen (*CRX) 5-325 MG TABLET 1 TAB PO (09:00)
[2024-10-06 10:30] VITALS: BP 140/86; PULSE 64; RESP 18; TEMP 36.7; O2SAT 98
== END 2024-10-05 11:20 | disposition home or self-care (01) | DRG 560 ==
LOC: ANHLDR 10:26 → ANHOB2 10-03 13:56
PROVIDERS: Admitting Provider Obstetrics & Gynecology; Visit Provider Obstetrics & Gynecology
DX: O24.429 Gestational diabetes mellitus in childbirth, unspecified control (principal); Z37.0 Single live birth; Z3A.37 37 weeks gestation of pregnancy; O70.0 First degree perineal laceration during delivery; O75.2 Pyrexia during labor, not elsewhere classified
CPT/HCPCS: 36415; 82948; 85014; 85018; 85025; 86593; 86703; 86803; 86850; 86900; 86901; 87340; A9270; G0432; J0290; J1836; J2405; J2590; J2765; J2795; J3010; J7120